=== PATIENT | male | born 1935 | race Caucasian/White ===

== ENCOUNTER → 2024-01-21 09:08 | Outpatient (REF) | payer OTHER, SELFPAY | LOC: HWRCS 09:08 | PROVIDERS: ATTENDING PHYSICIAN Internal Medicine Cardiovascular Disease; FAMILY PHYSICIAN Family Medicine | DX: I25.10 Atherosclerotic heart disease of native coronary artery without angina pectoris (principal); I35.1 Nonrheumatic aortic (valve) insufficiency | CPT/HCPCS: 93306 ==

== ENCOUNTER 2024-06-26 21:47 | Emergency (ER) | payer OTHER, SELFPAY ==
[2024-06-26 21:51] VITALS: BP 123/68
[2024-06-26 22:31] VITALS: BP 105/76
[2024-06-26 22:47] LABS: % Basophils 0.6 % (0-2); % Eosinophils 5.3 % (0-6); % Immature Granulocytes 0.2 % (0-0.5); % Lymphocytes 17.5 % (20.5-51.1); % Monocytes 8.8 % (1.7-9.3); % Neutrophils 67.6 % (42.2-75.2); Absolute Eosinophils 0.3 10^3/uL (0-0.7); Absolute Lymphocytes 0.9 10^3/uL (1.2-3.4); Absolute Monocytes 0.4 10^3/uL (0.1-0.6); Absolute Neutrophils 3.3 10^3/uL (1.4-6.5); Hematocrit 35.9 % (39.0-52.0); Hemoglobin 11.8 g/dL (13.0-18.0); Mean Corp Hgb Conc. 32.9 g/dL (33.0-37.0); Mean Corpuscular Hgb 30.9 pg (27.0-31.0); Mean Platelet Volume 9.6 fL (7.4-10.4); Nucleated Red Blood Cells % 0 % (-); Platelet Count 172 10^3/uL (130-400); Red Blood Cell Count 3.82 10^6/uL (4.70-6.10); Red Cell Dist. Width 15.7 % (11.5-14.5); White Blood Cell Count 4.9 10^3/uL (4.8-10.8)
[2024-06-26 23:00] LABS: ALT (SGPT) 20 U/L (0-50); AST (SGOT) 34 U/L (17-59); Albumin 3.3 g/dl (3.5-5.0); Alcohol 119 mg/dl; Alkaline Phosphatase 116 U/L (38-126); Blood Urea Nitrogen 24 mg/dl (9-20); Calcium 8.2 mg/dl (8.4-10.2); Carbon Dioxide 25 mmol/L (22-30); Chloride 110 mmol/L (98-107); Glucose 88 mg/dl (70-99); Potassium 4.4 mmol/L (3.5-5.1); Sodium 143 mmol/L (135-145); Total Bilirubin 0.3 mg/dl (0.2-1.3); Total Protein 5.8 g/dl (6.3-8.2); eGFR 58.53
--- NOTE | 2024-06-26 23:26 | ED.CVA ---
History of Present Illness
General
Chief Complaint: CVA/TIA Symptoms
Source: patient
Time Seen by Provider: 06/26/24 22:31
Onset of Stroke Symptoms
Onset of symptoms known: No
Time pt last seen normal is known: No
History of Present Illness
History of Present Illness:
88-year-old male with past medical history of CAD, multiple myeloma, hypercholesterolemia presenting to the emergency department for evaluation after he was talking to family on the phone and they felt patient had slurred speech. Patient states at
no time did he feel his speech was abnormal and has no other complaints and on arrival to the emergency department still continues to state that he does not have any speech difficulties. Patient notes that family contacted EMS who brought him here.
Patient does admit to drinking little alcohol today which she states he normally does not do. He does endorse some mild lower back discomfort which he states caused him to not a good night sleep last night. Denies any fevers or infectious
symptoms and has no other concerns at this time.
Past History
Past History
ED Past Medical History: HTN, Hypercholesterolemia and Other (Multiple myeloma, Sinus Problems, Hiatal hernia, BPV, Endocarditis)
ED Past Surgical History: Cardiac (Stent)
Social History
Tobacco: Former smoker
Alcohol: Occasional (one Tonya)
Drug: None
Personal:
Living: alone
Review of Systems
Review of Systems
All Other Systems: ROS reviewed and negative except as documented in HPI and ROS
Phy Exam
Physical Exam
Physical Exam:
GENERAL: Alert , in no apparent distress
HEAD: NCAT
EYE: pupils equal and reactive
NECK: Supple
ENT: o/p clr, mmm.
CARDIAC: Regular rate and rhythm .
LUNGS: Clear breath sounds bilaterally, no acute respiratory distress, no wheezes/rales/rhonchi
ABDOMEN: Soft, without focal tenderness, no r/g, no cvat
NEUROLOGICAL: Alert and oriented, no focal neuro deficits, moves all extremities, no sensory deficits, no dysmetria, no aphasia or dysarthria, no ataxia
SKIN: Warm and dry, skin intact.
MUSCULOSKELETAL: No edema, well perfused.
PSYCH: Normal and appropriate interaction.
Scores
NIH Stroke Score
Level of Consciousness: 0 - Alert
LOC Questions: 0-Answers both correctly
LOC Commands: 0-Performs both correctly
Best Horizontal Gaze: 0-Normal
Visual Woods: 0=Normal, no visual loss
Facial Palsy: 0=Normal, symmetrical
Motor - Right Arm: 0=No drift 10 seconds
Motor - Left Arm: 0=No drift 10 seconds
Motor - Right Le-No drift 5 seconds
Motor - Left Le-No drift 5 seconds
Limb Ataxia: 0-Absent
Sensation: 0-Normal
Best Language: 0-No aphasia
Dysarthria: 0-Normal
Extinction and Inattention: 0-No abnormality
Total Score:: 0
Heart Failure Risk
Heart Failure Risk Score: Not Applicable
Heart Score for Chest Pain Patients
STEMI patient?: Not applicable
Withdrawal Assessment of Alcohol
Withdrawal Assessment Completed?: Not applicable
Course
Orders/Labs/Results
Orders:
Orders
06/26/24 22:37
Electrocardiogram (*1) Urgent
Reason for Study: TIA/Stroke
CT Head W/o Iv Contrast Urgent
Comment:
Reason For Exam: ? slurred speech
EKG- Treatment ONCE
06/26/24 22:38
Alcohol Urgent
Complete Blood Count/With Diff Urgent
Comprehensive Metabolic Panel Urgent
Abnormal Lab Results
06/26/24
22:38
RBC 3.82 L 10^6/uL
(4.70-6.10)
Hgb 11.8 L g/dL
(13.0-18.0)
Hct 35.9 L %
(39.0-52.0)
MCHC 32.9 L g/dL
(33.0-37.0)
RDW 15.7 H %
(11.5-14.5)
Absolute Lymphs (auto) 0.9 L 10^3/uL
(1.2-3.4)
Lymphocytes % 17.5 L %
(20.5-51.1)
Chloride 110 H mmol/L
(98-107)
BUN 24 H mg/dl
(9-20)
Calcium 8.2 L mg/dl
(8.4-10.2)
Total Protein 5.8 L g/dl
(6.3-8.2)
Albumin 3.3 L g/dl
(3.5-5.0)
06/26/24 22:38
06/26/24 22:38
Vital Signs
Initial and Last Documented VS:
Initial Vital Signs
Temp Pulse Resp BP Pulse Ox
98.2 F 64 18 123/68 100
06/26/24 21:51 06/26/24 21:51 06/26/24 21:51 06/26/24 21:51 06/26/24 21:51
Last Documented Vital Signs
Temp Pulse Resp BP Pulse Ox
98.2 F 62 20 105/76 95
06/26/24 21:51 06/26/24 23:30 06/26/24 23:19 06/26/24 22:31 06/26/24 23:30
MDM/Problems Addressed
Differential Diagnosis Includes:
Alcohol intoxication, CVA/TIA considered however patient states that at no point did he feel that he had slurred speech, intracranial bleeding, malignancy/mass
MDM/Problems Addressed:
88-year-old male presenting to the emergency department for evaluation of reported slurred speech. Patient states that at times that he feels that he had slurred speech. On arrival here patient has an NIH score of 0. No stroke alert was called
given patient does not have symptoms. Patient does admit to drinking alcohol earlier today and is possible he is mildly intoxicated. Will check labs and CT of the head. Reassessment following
*Radiology
Radiology exam reviewed: radiology read reviewed
*Pulse Oximetry
Patient hypoxic: no
*Day Light Relief Operator Interpretation
Rate: normal
Rhythm: sinus
*Critical Care Note
Total Time (30-74mins, 75-104mins- exclusive of procedures): Not Applicable
Patient Management
Escalation/DeEscalation of care consider admission/obs:
Patient's workup reveals a mildly elevated alcohol. CT of the head is unremarkable for any acute pathologies. Other labs are otherwise workable. Patient continues to be well-appearing and without any concerns. Patient's sister will pick him up
from the emergency department. Patient is otherwise stable for discharge home and aware of return precautions.
ED Attending Note
-
Portions of this chart may have been created with voice recognition software.� Occasional wrong word or��sound alike� substitutions may have occurred due to the inherent limitations of voice recognition software.
Discharge Plan
Departure
Patient Disposition: Home (Routine Discharge)
Date of Disposition: 06/26/24
Time of Disposition: 23:26
Patient with high blood pressure during this ER visit?: No
Discharge Problem:
Alcohol intoxication
Instructions: Alcohol intoxication - ED discharge instructions
Prescriptions:
No Action
msiarenf-pjy-SR-lycopen-lutein [Centrum Silver] 1 EACH tablet
1 ea PO DAILY
amoxicillin 500 MG capsule
500 mg PO PRN PRN (Reason: dental procedure)
tamsulosin 0.4 MG capsule
0.4 mg PO DAILY
vitamin B complex 1 TAB tablet
1 tab PO DAILY
fluticasone propionate 1 SPRAY spray,suspension
1 spray intranasal DAILY
budesonide-formoterol [Symbicort] 1 PUFF HFA aerosol inhaler
2 puff inhalation PRN PRN (Reason: congestion)
clopidogrel 75 MG tablet
75 mg PO DAILY Qty: 90 3RF
aspirin 81 MG tablet,delayed release (DR/EC)
81 mg PO DAILY Qty: 1 0RF
pantoprazole 40 MG tablet,delayed release (DR/EC)
40 mg PO DAILY Qty: 90 3RF
atorvastatin 40 MG tablet
40 mg PO HS Qty: 0 0RF
meclizine 25 MG tablet
25 mg PO Q8HPRN PRN (Reason: Dizziness) Qty: 10 0RF
Referrals:
Jan Orantes, DO [Family Provider] -
Interventions
Interventions:
*Risk Screen - Suicide Last Done: 06/26/24 21:51
*General Assessment Last Done: 06/26/24 21:51
*Neglect/Abuse Screening Last Done: 06/26/24 21:51
ED- Fall Risk Assessment Last Done: 06/26/24 22:44
*ED COVID-19 Vaccine History Last Done: 06/26/24 23:24
ED- Pulmonary Assessment Last Done: 06/26/24 22:44
ED- Neurological Assessment Last Done: 06/26/24 22:44
ED- Cardiac Assessment Last Done: 06/26/24 22:44
ED Swallowing Screen Last Done: 06/26/24 23:37
Discharge Date and Time
Print Language: BURUNDIAN
== END 2024-06-27 00:45 | disposition home or self-care (01) ==
LOC: EMR 21:47
PROVIDERS: Emergency Medicine; EMERGENCY PHYSICIAN Student in an Organized Health Care Education/Training Program; FAMILY PHYSICIAN Family Medicine
DX: F10.129 Alcohol abuse with intoxication, unspecified (principal); I25.10 Atherosclerotic heart disease of native coronary artery without angina pectoris; I10 Essential (primary) hypertension; E78.00 Pure hypercholesterolemia, unspecified; C90.00 Multiple myeloma not having achieved remission; Z87.891 Personal history of nicotine dependence; Z95.5 Presence of coronary angioplasty implant and graft
CPT/HCPCS: 99284; 70450; 80053; 82077; 85025; 93005

== ENCOUNTER → 2024-06-29 13:28 | Outpatient (REF) | payer OTHER, SELFPAY | LOC: HWRAD 13:28 | PROVIDERS: ATTENDING PHYSICIAN Student in an Organized Health Care Education/Training Program | DX: M54.50 Low back pain, unspecified (principal) | CPT/HCPCS: 72110 ==

== ENCOUNTER → 2024-07-21 13:14 | Outpatient (REF) | payer OTHER, SELFPAY | LOC: PAVMRI 13:14 | PROVIDERS: ATTENDING PHYSICIAN Physician Assistant; FAMILY PHYSICIAN Family Medicine | DX: M54.16 Radiculopathy, lumbar region (principal) | CPT/HCPCS: 72148 ==

== ENCOUNTER 2024-09-01 15:30 | Emergency (ER) | payer OTHER, SELFPAY ==
[2024-09-01 15:49] VITALS: BP 119/78
[2024-09-01 16:09] LABS: % Basophils 0.2 % (0-2); % Eosinophils 7.9 % (0-6); % Immature Granulocytes 0.3 % (0-0.5); % Lymphocytes 3.2 % (20.5-51.1); % Monocytes 6.9 % (1.7-9.3); % Neutrophils 81.5 % (42.2-75.2); Absolute Eosinophils 0.5 10^3/uL (0-0.7); Absolute Lymphocytes 0.2 10^3/uL (1.2-3.4); Absolute Monocytes 0.4 10^3/uL (0.1-0.6); Absolute Neutrophils 5.1 10^3/uL (1.4-6.5); Hematocrit 45.9 % (39.0-52.0); Hemoglobin 15.1 g/dL (13.0-18.0); Mean Corp Hgb Conc. 32.9 g/dL (33.0-37.0); Mean Corpuscular Hgb 29.3 pg (27.0-31.0); Mean Corpuscular Volume 89.1 fL (80.0-94.0); Mean Platelet Volume 10.2 fL (7.4-10.4); Nucleated Red Blood Cells % 0 % (-); Platelet Count 164 10^3/uL (130-400); Red Blood Cell Count 5.15 10^6/uL (4.70-6.10); Red Cell Dist. Width 14.1 % (11.5-14.5); White Blood Cell Count 6.2 10^3/uL (4.8-10.8)
[2024-09-01 16:25] LABS: ALT (SGPT) 17 U/L (0-50); AST (SGOT) 27 U/L (17-59); Albumin 3.7 g/dl (3.5-5.0); Alkaline Phosphatase 124 U/L (38-126); Blood Urea Nitrogen 25 mg/dl (9-20); Calcium 8.8 mg/dl (8.4-10.2); Carbon Dioxide 24 mmol/L (22-30); Chloride 103 mmol/L (98-107); Glucose 115 mg/dl (70-99); Sodium 137 mmol/L (135-145); Total Bilirubin 0.8 mg/dl (0.2-1.3); Total Protein 6.1 g/dl (6.3-8.2); eGFR 53.17
[2024-09-01 18:32] VITALS: BMI 19.9
[2024-09-01] MEDS: NSS 1000 IV (18:35)
[2024-09-01 18:45] VITALS: BP 155/87
--- NOTE | 2024-09-01 19:17 | ED.GENMED ---
History of Present Illness
General
Chief Complaint: Dizziness
Source: patient
Time Seen by Provider: 09/01/24 18:11
History of Present Illness
History of Present Illness:
88-year-old male with past medical history of newly diagnosed prostate cancer, CAD, multiple myeloma presenting to the emergency department for evaluation of a multitude of symptoms including decreased p.o. intake to both solids and liquids, weight
loss, fatigue, lightheadedness, generalized aches and pains over the last few days. Patient states he believes this is related to new chemotherapy treatments related to his prostate cancer. Patient states this morning symptoms seem to be a little
bit worse which is what today. At present time patient states he does feel little bit better than he did earlier this morning. Denies any fevers or infectious symptoms. No other concerns presently. Triage noted patient was experiencing vertigo
however patient described the symptoms to be more of a headedness sensation during my exam.
Past History
Past History
ED Past Medical History: Cancer, HTN, Hypercholesterolemia and Other (Multiple myeloma, Sinus Problems, Hiatal hernia, BPV, Endocarditis)
ED Past Surgical History: Cardiac (Stent)
Social History
Tobacco: Former smoker
Alcohol: Occasional (one Michaeli)
Drug: None
Personal:
Living: alone
Review of Systems
Review of Systems
All Other Systems: ROS reviewed and negative except as documented in HPI and ROS
Phy Exam
Physical Exam
Physical Exam:
GENERAL: Alert , in no apparent distress, ambulating with steady gait
HEAD: Normocephalic atraumatic
EYE: Clear conjunctiva
NECK: Supple
ENT: o/p clr, mildly dry mucous membranes
CARDIAC: Borderline tachycardic rate and rhythm
LUNGS: Clear breath sounds bilaterally, no acute respiratory distress, no wheezes/rales/rhonchi
ABDOMEN: Soft, without focal tenderness, no r/g, no cvat
NEUROLOGICAL: Alert and oriented, no focal neuro deficits, no ataxia, no dysmetria, no dysarthria or aphasia, moves all extremities
SKIN: Warm and dry, skin intact.
MUSCULOSKELETAL: No edema, well perfused.
PSYCH: Normal and appropriate interaction.
Scores
Heart Failure Risk
Heart Failure Risk Score: Not Applicable
Heart Score for Chest Pain Patients
STEMI patient?: Not applicable
Withdrawal Assessment of Alcohol
Withdrawal Assessment Completed?: Not applicable
Course
Orders/Labs/Results
Orders:
Orders
09/01/24 15:42
Electrocardiogram (*1) Urgent
Reason for Study: Vertigo / Dizzy
EKG- Treatment ONCE
09/01/24 15:54
CT Head W/o Iv Contrast Urgent
Comment:
Reason For Exam: change in mental status
09/01/24 16:00
Complete Blood Count/With Diff Urgent
Comprehensive Metabolic Panel Urgent
09/01/24 18:18
0.9% Sodium Chloride 1000 ml [Nss] 1,000 ml IV BOLUS
09/01/24 18:19
Orthostatic VS- Treatment ONCE
Abnormal Lab Results
09/01/24
16:00
MCHC 32.9 L g/dL
(33.0-37.0)
Absolute Lymphs (auto) 0.2 L 10^3/uL
(1.2-3.4)
Neutrophils % 81.5 H %
(42.2-75.2)
Lymphocytes % 3.2 L %
(20.5-51.1)
Eosinophils % 7.9 H %
(0-6)
BUN 25 H mg/dl
(9-20)
Glucose 115 H mg/dl
(70-99)
Total Protein 6.1 L g/dl
(6.3-8.2)
09/01/24 16:00
09/01/24 16:00
Vital Signs
Initial and Last Documented VS:
Initial Vital Signs
Temp Pulse Resp BP Pulse Ox
97.9 F 115 20 119/78 97
09/01/24 15:49 09/01/24 15:49 09/01/24 15:49 09/01/24 15:49 09/01/24 15:49
Last Documented Vital Signs
Temp Pulse Resp BP Pulse Ox
97.9 F 73 17 135/79 98
09/01/24 15:49 09/01/24 19:24 09/01/24 19:24 09/01/24 19:24 09/01/24 19:24
MDM/Problems Addressed
Differential Diagnosis Includes:
Chemotherapy/medication side effect, dehydration, electrolyte derangement, I do not have concern for acute CVA, no symptoms to suggest infectious etiology
MDM/Problems Addressed:
88-year-old male presenting to the ER for generalized fatigue, decreased p.o. intake and lightheadedness. Patient states the symptoms all started after his last chemotherapy session. I do suspect his symptoms are likely related to this. Likely
mild dehydration due to lack of p.o. intake. Labs were initiated in triage which are largely reassuring. There is mild prerenal azotemia. Head CT was negative. Will treat with 1 L of IV fluids. Anticipate discharge home following.
Chronic conditions affecting care: Cancer
Acute Exacerbation and/or Progression of Chronic Illness: Cancer
*Radiology
Radiology exam reviewed: radiology read reviewed
*Pulse Oximetry
Patient hypoxic: no
*EKG
Heart Rate: 90
Rate: normal
Rhythm: sinus
[place]: normal axis
Ischemia: no ischemia
*Graduate Recruiter Interpretation
Rate: normal
Rhythm: sinus
*Critical Care Note
Total Time (30-74mins, 75-104mins- exclusive of procedures): Not Applicable
Patient Management
Escalation/DeEscalation of care consider admission/obs:
Patient completed IV fluids without difficulty. Remains hemodynamically stable. Orthostatics noted and patient noted he felt better following IVF. Aware of return precautions. Stable for discharge home
ED Attending Note
-
Portions of this chart may have been created with voice recognition software.� Occasional wrong word or��sound alike� substitutions may have occurred due to the inherent limitations of voice recognition software.
Discharge Plan
Departure
Patient Disposition: Home (Routine Discharge)
Date of Disposition: 09/01/24
Time of Disposition: 20:16
Patient with high blood pressure during this ER visit?: Yes
Discharge Problem:
Dehydration
Instructions: Dehydration in adults - ED discharge instructions
Prescriptions:
No Action
otosmnqc-zfc-KC-lycopen-lutein [Centrum Silver] 1 EACH tablet
1 ea PO DAILY
amoxicillin 500 MG capsule
500 mg PO PRN PRN (Reason: dental procedure)
tamsulosin 0.4 MG capsule
0.4 mg PO DAILY
vitamin B complex 1 TAB tablet
1 tab PO DAILY
fluticasone propionate 1 SPRAY spray,suspension
1 spray intranasal DAILY
budesonide-formoterol [Symbicort] 1 PUFF HFA aerosol inhaler
2 puff inhalation PRN PRN (Reason: congestion)
clopidogrel 75 MG tablet
75 mg PO DAILY Qty: 90 3RF
aspirin 81 MG tablet,delayed release (DR/EC)
81 mg PO DAILY Qty: 1 0RF
pantoprazole 40 MG tablet,delayed release (DR/EC)
40 mg PO DAILY Qty: 90 3RF
atorvastatin 40 MG tablet
40 mg PO HS Qty: 0 0RF
meclizine 25 MG tablet
25 mg PO Q8HPRN PRN (Reason: Dizziness) Qty: 10 0RF
Referrals:
Jan Orantes, DO [Family Provider] -
Interventions
Interventions:
*Risk Screen - Suicide Last Done: 09/01/24 15:49
*General Assessment Last Done: 09/01/24 18:32
ED- Fall Risk Assessment Last Done: 09/01/24 18:44
*Nursing Disposition Last Done: 09/01/24 20:38
ED- Neurological Assessment Last Done: 09/01/24 18:38
ED- Cardiac Assessment Last Done: 09/01/24 18:44
Discharge Date and Time
Print Language: BRITISH
[2024-09-01 19:22] VITALS: BP 151/70
[2024-09-01 19:24] VITALS: BP 135/79
[2024-09-01 19:27] VITALS: BP 135/79; BP 151/70; BP 173/79; PULSE 63; PULSE 70; PULSE 90
== END 2024-09-01 20:49 | disposition home or self-care (01) ==
LOC: EMR 15:30
PROVIDERS: Emergency Medicine; EMERGENCY PHYSICIAN Emergency Medicine; FAMILY PHYSICIAN Family Medicine
DX: R42 Dizziness and giddiness (principal); E78.00 Pure hypercholesterolemia, unspecified; I10 Essential (primary) hypertension; I25.10 Atherosclerotic heart disease of native coronary artery without angina pectoris; C90.00 Multiple myeloma not having achieved remission; Z51.11 Encounter for antineoplastic chemotherapy; Z85.46 Personal history of malignant neoplasm of prostate; Z87.891 Personal history of nicotine dependence; Z95.5 Presence of coronary angioplasty implant and graft
CPT/HCPCS: 99284; 96360; 70450; 80053; 85025; 93005

== ENCOUNTER → 2024-10-19 09:36 | Outpatient (REF) | payer OTHER, SELFPAY ==
[2024-10-19 12:02] LABS: % Basophils 0.8 % (0-2); % Eosinophils 4.8 % (0-6); % Immature Granulocytes 0.3 % (0-0.5); % Lymphocytes 9.9 % (20.5-51.1); % Monocytes 12.5 % (1.7-9.3); % Neutrophils 71.7 % (42.2-75.2); Absolute Eosinophils 0.2 10^3/uL (0-0.7); Absolute Lymphocytes 0.4 10^3/uL (1.2-3.4); Absolute Monocytes 0.5 10^3/uL (0.1-0.6); Absolute Neutrophils 2.8 10^3/uL (1.4-6.5); Hematocrit 39.4 % (39.0-52.0); Mean Corpuscular Hgb 29.9 pg (27.0-31.0); Mean Corpuscular Volume 90.6 fL (80.0-94.0); Mean Platelet Volume 10.1 fL (7.4-10.4); Nucleated Red Blood Cells % 0 % (-); Platelet Count 191 10^3/uL (130-400); Red Blood Cell Count 4.35 10^6/uL (4.70-6.10); Red Cell Dist. Width 16.5 % (11.5-14.5); White Blood Cell Count 3.9 10^3/uL (4.8-10.8)
[2024-10-19 12:19] LABS: ALT (SGPT) 16 U/L (0-50); AST (SGOT) 26 U/L (17-59); Albumin 3.2 g/dl (3.5-5.0); Alkaline Phosphatase 112 U/L (38-126); Blood Urea Nitrogen 20 mg/dl (9-20); Carbon Dioxide 31 mmol/L (22-30); Chloride 104 mmol/L (98-107); Glucose 84 mg/dl (70-99); Potassium 3.6 mmol/L (3.5-5.1); Sodium 139 mmol/L (135-145); Total Bilirubin 0.8 mg/dl (0.2-1.3); Total Protein 5.8 g/dl (6.3-8.2); eGFR > 60.00
[2024-10-19 12:48] LABS: PSA, Total - Diagnostic 0.17 ng/ml (0.0-4.0)
[2024-10-22 02:24] LABS: % Free Testosterone <1.3 % (1.6-2.9); Free Testosterone <1 pg/mL (47-244); Sex Hormone Binding Globulin 51 nmol/L (19-76); Total Testosterone <3 ng/dL (300-720)
== END ==
LOC: HWRAD 09:36
PROVIDERS: ATTENDING PHYSICIAN Internal Medicine Hematology & Oncology; FAMILY PHYSICIAN Family Medicine
DX: C61 Malignant neoplasm of prostate (principal); N18.30 Chronic kidney disease, stage 3 unspecified; Z79.818 Long term (current) use of other agents affecting estrogen receptors and estrogen levels
CPT/HCPCS: 36415; 77080; 80053; 84153; 84270; 84402; 84403; 85025

== ENCOUNTER → 2024-10-28 09:50 | Outpatient (REF) | payer OTHER, SELFPAY ==
[2024-10-28 11:55] LABS: % Basophils 0.6 % (0-2); % Eosinophils 3.4 % (0-6); % Immature Granulocytes 0.2 % (0-0.5); % Lymphocytes 7.8 % (20.5-51.1); % Monocytes 11.1 % (1.7-9.3); % Neutrophils 76.9 % (42.2-75.2); Absolute Eosinophils 0.2 10^3/uL (0-0.7); Absolute Lymphocytes 0.4 10^3/uL (1.2-3.4); Absolute Monocytes 0.5 10^3/uL (0.1-0.6); Absolute Neutrophils 3.7 10^3/uL (1.4-6.5); Hematocrit 40.2 % (39.0-52.0); Hemoglobin 13.2 g/dL (13.0-18.0); Mean Corp Hgb Conc. 32.8 g/dL (33.0-37.0); Mean Corpuscular Volume 91.4 fL (80.0-94.0); Mean Platelet Volume 9.9 fL (7.4-10.4); Nucleated Red Blood Cells % 0 % (-); Platelet Count 192 10^3/uL (130-400); Red Cell Dist. Width 16.7 % (11.5-14.5); White Blood Cell Count 4.8 10^3/uL (4.8-10.8)
[2024-10-28 12:07] LABS: ALT (SGPT) 17 U/L (0-50); AST (SGOT) 28 U/L (17-59); Albumin 3.5 g/dl (3.5-5.0); Alkaline Phosphatase 138 U/L (38-126); Blood Urea Nitrogen 19 mg/dl (9-20); Calcium 8.8 mg/dl (8.4-10.2); Carbon Dioxide 29 mmol/L (22-30); Chloride 104 mmol/L (98-107); Direct Bilirubin 0.3 mg/dl (0.0-0.4); Glucose 94 mg/dl (70-99); HDL Cholesterol 60 mg/dl; LDL Cholesterol, Calculated 45 mg/dl; Potassium 3.7 mmol/L (3.5-5.1); Sodium 141 mmol/L (135-145); Total Bilirubin 0.8 mg/dl (0.2-1.3); Total Cholesterol 122 mg/dl (50-199); Total Protein 6.1 g/dl (6.3-8.2); Triglyceride 86 mg/dl (10-149); Very Low Density Lipoprotein 17 mg/dl (0-30); eGFR > 60.00
[2024-10-28 15:22] LABS: PSA, Total - Diagnostic 0.16 ng/ml (0.0-4.0)
[2024-10-30 13:11] LABS: % Free Testosterone <1.2 % (1.6-2.9); Free Testosterone <1 pg/mL (47-244); Sex Hormone Binding Globulin 55 nmol/L (19-76); Total Testosterone <3 ng/dL (300-720)
== END ==
LOC: HWLAB 09:50
PROVIDERS: ATTENDING PHYSICIAN Internal Medicine Cardiovascular Disease; FAMILY PHYSICIAN Family Medicine; REFERRING PHYSICIAN Internal Medicine Hematology & Oncology
DX: I25.10 Atherosclerotic heart disease of native coronary artery without angina pectoris (principal); I35.1 Nonrheumatic aortic (valve) insufficiency; E78.2 Mixed hyperlipidemia; R06.02 Shortness of breath
CPT/HCPCS: 36415; 71046; 80053; 80061; 82248; 84153; 84270; 84402; 84403; 85025

== ENCOUNTER → 2024-11-15 15:03 | Outpatient (REF) | payer OTHER, SELFPAY ==
[2024-11-15 15:45] LABS: Urine Albumin 1+ (Neg - Trace); Urine Bilirubin Negative (Negative); Urine Character Clear (Clear); Urine Color Yellow; Urine Glucose Negative (Negative); Urine Ketone Negative (Negative); Urine Leukocyte Negative (Negative); Urine Nitrite Negative (Negative); Urine Occult Blood Negative (Negative); Urine Urobilinogen Negative (Neg - 1+); Urine pH 6.5 (5.0-9.0)
[2024-11-15 16:04] LABS: Urine Bacteria Few (Negative); Urine Red Blood Cell 0-2 /HPF (0-2); Urine Squamous Cell 0-2 /LPF (Few); Urine White Cell 0-2 /HPF (0-5)
[2024-11-15 16:27] LABS: % Basophils 0.5 % (0-2); % Eosinophils 1.2 % (0-6); % Immature Granulocytes 0.5 % (0-0.5); % Lymphocytes 4.1 % (20.5-51.1); % Monocytes 7.1 % (1.7-9.3); % Neutrophils 86.6 % (42.2-75.2); Absolute Eosinophils 0.1 10^3/uL (0-0.7); Absolute Lymphocytes 0.3 10^3/uL (1.2-3.4); Absolute Monocytes 0.5 10^3/uL (0.1-0.6); Absolute Neutrophils 5.8 10^3/uL (1.4-6.5); Hematocrit 38.7 % (39.0-52.0); Hemoglobin 12.7 g/dL (13.0-18.0); Mean Corp Hgb Conc. 32.8 g/dL (33.0-37.0); Mean Corpuscular Hgb 29.9 pg (27.0-31.0); Mean Corpuscular Volume 91.1 fL (80.0-94.0); Mean Platelet Volume 10.5 fL (7.4-10.4); Nucleated Red Blood Cells % 0 % (-); Platelet Count 212 10^3/uL (130-400); Red Blood Cell Count 4.25 10^6/uL (4.70-6.10); Red Cell Dist. Width 16.4 % (11.5-14.5); White Blood Cell Count 6.7 10^3/uL (4.8-10.8)
[2024-11-15 16:39] LABS: ALT (SGPT) 18 U/L (0-50); AST (SGOT) 30 U/L (17-59); Albumin 3.3 g/dl (3.5-5.0); Alkaline Phosphatase 132 U/L (38-126); Blood Urea Nitrogen 19 mg/dl (9-20); Carbon Dioxide 32 mmol/L (22-30); Chloride 102 mmol/L (98-107); Glucose 119 mg/dl (70-99); Iron 79 ug/dl (49-181); Potassium 4.8 mmol/L (3.5-5.1); Sodium 139 mmol/L (135-145); Total Bilirubin 0.7 mg/dl (0.2-1.3); Total Protein 5.8 g/dl (6.3-8.2); eGFR > 60.00
[2024-11-15 16:48] LABS: Percent Saturation 30 % (20-50); Total Iron Binding Capacity 261 ug/dl (261-462)
[2024-11-15 17:16] LABS: Ferritin 87.4 ng/ml (17.9-464.0)
== END ==
LOC: REG 15:03
PROVIDERS: ATTENDING PHYSICIAN Internal Medicine Hematology & Oncology; FAMILY PHYSICIAN Family Medicine
DX: C61 Malignant neoplasm of prostate (principal); N18.30 Chronic kidney disease, stage 3 unspecified; Z79.818 Long term (current) use of other agents affecting estrogen receptors and estrogen levels
CPT/HCPCS: 36415; 80053; 81003; 81015; 82728; 83540; 83550; 85025; 87086

== ENCOUNTER → 2024-11-25 10:37 | Outpatient (REF) | payer OTHER, SELFPAY ==
[2024-11-25 11:37] LABS: % Basophils 0.6 % (0-2); % Eosinophils 2.9 % (0-6); % Immature Granulocytes 0.4 % (0-0.5); % Lymphocytes 4.4 % (20.5-51.1); % Monocytes 10.8 % (1.7-9.3); % Neutrophils 80.9 % (42.2-75.2); Absolute Eosinophils 0.2 10^3/uL (0-0.7); Absolute Lymphocytes 0.2 10^3/uL (1.2-3.4); Absolute Monocytes 0.6 10^3/uL (0.1-0.6); Absolute Neutrophils 4.2 10^3/uL (1.4-6.5); Hematocrit 39.2 % (39.0-52.0); Hemoglobin 12.9 g/dL (13.0-18.0); Mean Corp Hgb Conc. 32.9 g/dL (33.0-37.0); Mean Corpuscular Hgb 30.1 pg (27.0-31.0); Mean Corpuscular Volume 91.4 fL (80.0-94.0); Mean Platelet Volume 9.8 fL (7.4-10.4); Nucleated Red Blood Cells % 0 % (-); Platelet Count 216 10^3/uL (130-400); Red Blood Cell Count 4.29 10^6/uL (4.70-6.10); White Blood Cell Count 5.2 10^3/uL (4.8-10.8)
[2024-11-25 12:50] LABS: ALT (SGPT) 17 U/L (0-50); AST (SGOT) 27 U/L (17-59); Albumin 3.5 g/dl (3.5-5.0); Alkaline Phosphatase 149 U/L (38-126); Blood Urea Nitrogen 23 mg/dl (9-20); Calcium 9.1 mg/dl (8.4-10.2); Carbon Dioxide 29 mmol/L (22-30); Chloride 107 mmol/L (98-107); Glucose 90 mg/dl (70-99); Potassium 4.2 mmol/L (3.5-5.1); Sodium 140 mmol/L (135-145); Total Protein 6.1 g/dl (6.3-8.2); eGFR > 60.00
== END ==
LOC: RAD 10:37
PROVIDERS: ATTENDING PHYSICIAN Nurse Practitioner Gerontology; FAMILY PHYSICIAN Family Medicine
DX: C61 Malignant neoplasm of prostate (principal)
CPT/HCPCS: 36415; 71046; 80053; 85025

== ENCOUNTER 2024-11-25 20:08 | Emergency (ER) | payer OTHER, SELFPAY ==
[2024-11-25 20:09] VITALS: BP 152/88
[2024-11-25 22:30] VITALS: BMI 21.6
[2024-11-25 22:34] VITALS: BP 148/82
[2024-11-25 23:00] VITALS: BP 135/79
--- NOTE | 2024-11-26 | ED.GENMED ---
History of Present Illness
General
Chief Complaint: Breathing Problem
Source: patient
Time Seen by Provider: 11/25/24 23:59
History of Present Illness
History of Present Illness:
Pleasant 88-year-old male presents to the emergency department to 'review testing '. He states that he has some form of cancer but after reading the chart and discussing that he has prostate cancer, patient was surprised. Patient drove himself
here but is somewhat confused. He has no new symptoms at this time. After reviewing previous notes, patient has had this diagnosis of prostate cancer since at least August of this year. He is being tracked by palliative care. He states that
they sent him in for 'explanation '. History is limited due to patient condition.
Past History
Past History
ED Past Medical History: Cancer, HTN, Hypercholesterolemia and Other (Multiple myeloma, Sinus Problems, Hiatal hernia, BPV, Endocarditis)
ED Past Surgical History: Cardiac (Stent)
Social History
Tobacco: Former smoker
Alcohol: Occasional (one Michaeli)
Drug: None
Personal:
Living: alone
Review of Systems
Review of Systems
Allergies reviewed?: Yes
All Other Systems: ROS reviewed and negative except as documented in HPI and ROS
Constitutional: Denies fever or fatigue
Respiratory: Reports trouble breathing
Psychiatric: Reports anxiety
Phy Exam
General Physical Exam
General Presentation: well appearing and no apparent distress
General Skin: warm and dry
General Habitus: normal
General Mental: alert
General Hydration: appears well hydrated
ENT Exam
ENT Exam: EOMI, pharynx normal, neck supple and normocephalic
Eye Exam
Eye Exam: PERRL, cornea clear and conjunctiva normal
Cardiovascular Exam
Cardiovascular Exam: regular rate/rhythm
Pulmonary Exam
Pulmonary Exam: lungs clear and no respiratory distress
Gastrointestinal Exam
Gastrointestinal Exam: normal bowel sounds, non tender, soft, no organomegaly, no pulsatile mass and non distended
Neurological Exam
Neurological Exam: alert, no motor deficits, speech normal and confused
Musculoskeletal Exam
Musculoskeletal Exam: full ROM
Skin Exam
Skin Exam: normal color and warm/dry
Psychiatric Exam
Psychiatric Exam: anxious and labile
Scores
Heart Failure Risk
Heart Failure Risk Score: Not Applicable
Course
Orders/Labs/Results
Orders:
Orders
11/25/24 20:16
Electrocardiogram (*1) Urgent
Reason for Study: Shortness of Breath
EKG- Treatment ONCE
11/26/24 02:05
Case Management Consult ONCE
Case Management Consult: Discharge Planning
Comment: Patient lives alone. He drove himself here in current state of confusion. He does not appear to be
well versed in his treatment plan or diagnosis.
Vital Signs
Initial and Last Documented VS:
Initial Vital Signs
Temp Pulse Resp BP Pulse Ox
97.6 F 94 16 152/88 96
11/25/24 20:09 11/25/24 20:09 11/25/24 20:09 11/25/24 20:09 11/25/24 20:09
Last Documented Vital Signs
Temp Pulse Resp BP Pulse Ox
97.6 F 76 24 135/79 93
11/25/24 20:09 11/26/24 01:30 11/26/24 01:30 11/25/24 23:00 11/26/24 01:00
*Critical Care Note
Total Time (30-74mins, 75-104mins- exclusive of procedures): Not Applicable
Update Note
Update Note:
Patient is on palliative care.
He is confused.
He lives alone
Case management consulted
ED Attending Note
-
Portions of this chart may have been created with voice recognition software.� Occasional wrong word or��sound alike� substitutions may have occurred due to the inherent limitations of voice recognition software.
Discharge Plan
Departure
Prescriptions:
No Action
udhsuboj-mgg-TZ-lycopen-lutein [Centrum Silver] 1 EACH tablet
1 ea PO DAILY
amoxicillin 500 MG capsule
500 mg PO PRN PRN (Reason: dental procedure)
tamsulosin 0.4 MG capsule
0.4 mg PO DAILY
vitamin B complex 1 TAB tablet
1 tab PO DAILY
fluticasone propionate 1 SPRAY spray,suspension
1 spray intranasal DAILY
budesonide-formoterol [Symbicort] 1 PUFF HFA aerosol inhaler
2 puff inhalation PRN PRN (Reason: congestion)
clopidogrel 75 MG tablet
75 mg PO DAILY Qty: 90 3RF
aspirin 81 MG tablet,delayed release (DR/EC)
81 mg PO DAILY Qty: 1 0RF
pantoprazole 40 MG tablet,delayed release (DR/EC)
40 mg PO DAILY Qty: 90 3RF
atorvastatin 40 MG tablet
40 mg PO HS Qty: 0 0RF
meclizine 25 MG tablet
25 mg PO Q8HPRN PRN (Reason: Dizziness) Qty: 10 0RF
Referrals:
Jan Orantes, DO [Family Provider] -
Interventions
Interventions:
*Risk Screen - Suicide Last Done: 11/25/24 20:09
*General Assessment Last Done: 11/25/24 20:09
*Neglect/Abuse Screening Last Done: 11/25/24 20:09
*ED COVID-19 Vaccine History Last Done: 11/25/24 20:09
ED- Cardiac Assessment Last Done: 11/25/24 22:30
ED- Pulmonary Assessment Last Done: 11/25/24 22:30
Discharge Date and Time
Print Language: SPANISH
[2024-11-26 07:30] VITALS: BP 137/84
--- NOTE | 2024-11-26 08:03 | CM ---
Addendum entered by Norma Rivas RN 11/26/24 09:22:
CM was updated by Sarah Santamaria that patient had been referred to [facility], but was overcome for services. He was also referred to [facility] [employer] [facility], but declined because he didn't like the food. He has also been referred to a cleaning agency and he was
agreeable to that. CM will remain available as needed.
Addendum entered by Norma Rivas RN 11/26/24 09:13:
CM reached out to Palliative Care. Confirmed that patient was send to ER due to increasingly shortness of breath and adverse findings on chest xray. CM updated Dr. Valdez. Plan for discharge to home with PO antibiotics.
Patient stated that he is having increasing difficulty with maintaining his home. He does state that he has supportive neighbors who are able to assist him with his needs. Patient further stated that he does go to the gym and continues to drive. He
expressed frustration with having to stay in his room. 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 CM offered emotional support and stated that the ER team is working to get him
discharged.
CM contacted [facility]. CM will coordinate any further needs with Sarah.
PLAN: home with Palliative Care support.
Original Note:
CM reviewed medical records.
--- NOTE | 2024-11-26 08:34 | EDRN ---
Pt. called his palliative care team who reached out to case management stating pt. is very upset. Forwarded tt note state 'Obinna just called our office and is upset, 'not allowed to leave his room, no food or coffee, Very upset. Can you or someone
talk to him. He feels like a 'prisoner.'
Pt. had been made aware around 0730 am that a breakfast tray was ordered and will come up around 9 AM which will come with coffee. New water provided to the patient at that time. Pt. asked to stay in room just as any other ER pt would be asked due
to other patients being treated in the ER at this time. RN went to Dr. Valdez to confirm what the plan was this morning. Dr. Valdez confirmed just waiting for case management and also confirmed that if patient wants to leave he is fine to leave.
and we are not holding him for any reason.
RN went into pt's room at this time to go back over information. RN restated that food has been ordered and will be coming up around 9am, just like it would be for any other pt holding or waiting in the ER. Pt. upset that RN will not go out at buy
patient a coffee. RN explained she has other patients at this time and is not required to spend her own money on the patient. Pt. also upset due to the 'angelia last night' promised that pt would be out of here at 8 am. RN explained to patient that case
management doesn't come in until after 8 am so unfortunately unsure why 'the angelia last night' stated that. RN re-informed pt of the plan to meet with case management. RN reminded pt that no one is holding him prisoner and he is within his own right
to leave if that is what he wishes to do. Pt. states that he's waited this long, he's going to continue waiting.
@[id number] Case management Norma is now down in the ER and speaking with patient's palliative care team and Dr. Valdez.
--- NOTE | 2024-11-26 08:58 | EDRN ---
case management and dr. fregoso at bedside to talk with pt.
[2024-11-26] MEDS: AUGMENTIN 875 MG/125 MG 1 TABLET PO (09:23)
== END 2024-11-26 09:33 | disposition home or self-care (01) ==
LOC: EMR 20:08
PROVIDERS: EMERGENCY PHYSICIAN Student in an Organized Health Care Education/Training Program; FAMILY PHYSICIAN Family Medicine
DX: R41.0 Disorientation, unspecified (principal); I10 Essential (primary) hypertension; E78.00 Pure hypercholesterolemia, unspecified; Z51.5 Encounter for palliative care; Z87.891 Personal history of nicotine dependence; Z95.5 Presence of coronary angioplasty implant and graft
CPT/HCPCS: 99283; 93005

== ENCOUNTER 2024-12-22 15:17 | Inpatient (IN) | payer OTHER, SELFPAY ==
[2024-12-21 20:43] VITALS: BP 138/78
[2024-12-21 21:08] VITALS: BMI 23.0
--- NOTE | 2024-12-21 21:14 | ED.GENMED ---
History of Present Illness
General
Chief Complaint: Abdominal Pain
Source: patient
Exam Limitations: none
Time Seen by Provider: 12/21/24 20:56
Nursing documentation reviewed up to this point in time: agreed with
History of Present Illness
History of Present Illness:
89-year-old male with past medical history of CAD, hyperlipidemia, prostate cancer, multiple myeloma who presents to the emergency department for evaluation of flank pain. Patient reports onset of symptoms about a week ago and have been constant
since that time. He reports pain is dull aching located in the right flank radiates towards the right upper abdomen. No clear triggering or relieving factors noted. He reports that he has had poor appetite and weight loss. He denies any
vomiting. Denies any diarrhea. He denies fevers or chills. He denies significant coughing, chest pain or shortness of breath. He went to urgent care on 12/18 for his symptoms and had an abdominal x-ray which apparently showed abdominal mass and
pleural effusion; he was recommended for a follow-up CT scan. Today he called his primary doctor and was told he should come to the ER for his CT scan.
Past History
Past History
ED Past Medical History: Cancer, HTN, Hypercholesterolemia and Other (Multiple myeloma, Sinus Problems, Hiatal hernia, BPV, Endocarditis)
ED Past Surgical History: Cardiac (Stent)
Social History
Tobacco: Former smoker
Alcohol: Occasional (one Michaeli)
Drug: None
Personal:
Living: alone
Review of Systems
Review of Systems
All Other Systems: ROS reviewed and negative except as documented in HPI and ROS
Constitutional: Denies fever
Respiratory: Denies trouble breathing
Cardiac: Denies chest pain
ABD/GI: Reports abdominal pain and anorexia; Denies nausea, vomiting or diarrhea
: Reports flank pain; Denies dysuria
Musculoskeletal: Denies neck pain
Neurological: Denies dizzy or headache
Phy Exam
Physical Exam
Physical Exam:
General: Awake, alert, oriented x3; no acute distress
Head: Normocephalic, atraumatic
Eyes: Conjunctiva normal, sclera anicteric
Throat: Airway intact, handling secretions
Neck: Trachea midline, no JVD
Lungs: Breath sounds severely diminished at the right lung base; no tachypnea, no increased work of breathing, no hypoxia
Heart: Regular rate and rhythm, no murmurs, gallops, or rubs
Abd: Soft, non distended, tender in the right upper abdomen with palpable hepatomegaly
Neuro: No gross deficits
Skin: no rash in area of concern
Extremities: Warm and well-perfused
Scores
Heart Failure Risk
Heart Failure Risk Score: Not Applicable
Heart Score for Chest Pain Patients
STEMI patient?: Not applicable
Withdrawal Assessment of Alcohol
Withdrawal Assessment Completed?: Not applicable
Course
Orders/Labs/Results
Orders:
Orders
12/21/24 20:57
CT Chest/abd/pel W Iv Cont Urgent
Comment: combined wrong order placed by attending
Reason For Exam: right flank pain; suspected mass on outpatient XR
Urinalysis Reflex To Culture Urgent
12/21/24 21:18
Complete Blood Count/With Diff Urgent
Comprehensive Metabolic Panel Urgent
Lipase Urgent
12/21/24 22:05
Morphine Sulfate 4 mg IV NOW STA
Ondansetron Injectable [Zofran] 4 mg IV NOW STA
Abnormal Lab Results
12/21/24
21:18
RBC 3.67 L 10^6/uL
(4.70-6.10)
Hgb 11.5 L g/dL
(13.0-18.0)
Hct 33.0 L %
(39.0-52.0)
MCH 31.3 H pg
(27.0-31.0)
Absolute Lymphs (auto) 0.3 L 10^3/uL
(1.2-3.4)
Neutrophils % 84.3 H %
(42.2-75.2)
Lymphocytes % 4.5 L %
(20.5-51.1)
BUN 29 H mg/dl
(9-20)
Glucose 154 H mg/dl
(70-99)
Alkaline Phosphatase 147 H U/L
(38-126)
Total Protein 5.7 L g/dl
(6.3-8.2)
Albumin 3.1 L g/dl
(3.5-5.0)
12/21/24 21:18
12/21/24 21:18
Vital Signs
Initial and Last Documented VS:
Initial Vital Signs
Temp Pulse Resp BP Pulse Ox
36.8 C 96 20 138/78 95
12/21/24 20:43 12/21/24 20:43 12/21/24 20:43 12/21/24 20:43 12/21/24 20:43
Last Documented Vital Signs
Temp Pulse Resp BP Pulse Ox
36.8 C 87 22 141/102 92
12/21/24 20:43 12/21/24 22:45 12/21/24 22:45 12/21/24 22:41 12/21/24 22:45
MDM/Problems Addressed
Differential Diagnosis Includes:
Malignancy, cirrhosis, hepatitis, pleural effusion
MDM/Problems Addressed:
89-year-old male presents with right flank pain for the past week; had abnormal x-ray and was sent by his primary doctor for CT scan. Vitals and exam as above. Plan to send labs including a CBC and a CMP, lipase. Will check CT of the
chest/abdomen/pelvis. Reassess after the above.
Labs reviewed: CBC shows mild anemia, CMP no clinically significant abnormalities. CT is pending. Patient having significant pain and nausea�given Zofran and morphine.
CT reviewed by me shows massive right sided pleural effusion, multiple renal cysts. Awaiting final radiology report. Fortunately he is not showing any signs of respiratory compromise but patient will need admission for thoracentesis large-volume
thoracentesis and for pain control at minimum. Case discussed with hospitalist for admission.
*Critical Care Note
Total Time (30-74mins, 75-104mins- exclusive of procedures): Not Applicable
Patient Management
Discussion with other providers: Hospitalist (Discussed with hospitalist)
Escalation/DeEscalation of care consider admission/obs:
Admission indicated
ED Attending Note
-
Portions of this chart may have been created with voice recognition software.� Occasional wrong word or��sound alike� substitutions may have occurred due to the inherent limitations of voice recognition software.
Discharge Plan
Departure
Patient Disposition: Admit
Date of Disposition: 12/21/24
Time of Disposition: 22:43
Admit to doctor: Daniel
Presentation/result/management discussed w/ accepting MD/DO: Hospitalist
Discharge Problem:
Right flank pain, Pleural effusion
Prescriptions:
No Action
agnlusyt-wcn-VR-lycopen-lutein [Centrum Silver] 1 EACH tablet
1 ea PO DAILY
amoxicillin 500 MG capsule
500 mg PO PRN PRN (Reason: dental procedure)
tamsulosin 0.4 MG capsule
0.4 mg PO DAILY
vitamin B complex 1 TAB tablet
1 tab PO DAILY
fluticasone propionate 1 SPRAY spray,suspension
1 spray intranasal DAILY
budesonide-formoterol [Symbicort] 1 PUFF HFA aerosol inhaler
2 puff inhalation PRN PRN (Reason: congestion)
clopidogrel 75 MG tablet
75 mg PO DAILY Qty: 90 3RF
aspirin 81 MG tablet,delayed release (DR/EC)
81 mg PO DAILY Qty: 1 0RF
pantoprazole 40 MG tablet,delayed release (DR/EC)
40 mg PO DAILY Qty: 90 3RF
atorvastatin 40 MG tablet
40 mg PO HS Qty: 0 0RF
meclizine 25 MG tablet
25 mg PO Q8HPRN PRN (Reason: Dizziness) Qty: 10 0RF
amoxicillin-pot clavulanate 875-125 mg tablet
1 tab PO BID Qty: 14 0RF
Referrals:
UNKNOWN - PT DOES,NOT KNOW [Unknown Provider]
Interventions
Interventions:
*Risk Screen - Suicide Last Done: 12/21/24 20:43
*General Assessment Last Done: 12/21/24 20:43
*Neglect/Abuse Screening Last Done: 12/21/24 20:43
*ED- Fall Risk Assessment Last Done: 12/21/24 20:43
*ED COVID-19 Vaccine History Last Done: 12/21/24 20:43
FH-Drpeyz-Rdgmiizfmt Assessment Last Done: 12/21/24 21:25
Discharge Date and Time
Print Language: MALTESE
[2024-12-21 21:19] VITALS: BP 135/82
[2024-12-21 21:46] LABS: % Basophils 0.3 % (0-2); % Eosinophils 1.2 % (0-6); % Immature Granulocytes 0.5 % (0-0.5); % Lymphocytes 4.5 % (20.5-51.1); % Monocytes 9.2 % (1.7-9.3); % Neutrophils 84.3 % (42.2-75.2); Absolute Eosinophils 0.1 10^3/uL (0-0.7); Absolute Lymphocytes 0.3 10^3/uL (1.2-3.4); Absolute Monocytes 0.6 10^3/uL (0.1-0.6); Absolute Neutrophils 5.1 10^3/uL (1.4-6.5); Hemoglobin 11.5 g/dL (13.0-18.0); Mean Corp Hgb Conc. 34.8 g/dL (33.0-37.0); Mean Corpuscular Hgb 31.3 pg (27.0-31.0); Mean Corpuscular Volume 89.9 fL (80.0-94.0); Mean Platelet Volume 9.9 fL (7.4-10.4); Nucleated Red Blood Cells % 0 % (-); Platelet Count 216 10^3/uL (130-400); Red Blood Cell Count 3.67 10^6/uL (4.70-6.10); Red Cell Dist. Width 14.3 % (11.5-14.5)
[2024-12-21 21:48] LABS: ALT (SGPT) 22 U/L (0-50); AST (SGOT) 34 U/L (17-59); Albumin 3.1 g/dl (3.5-5.0); Alkaline Phosphatase 147 U/L (38-126); Blood Urea Nitrogen 29 mg/dl (9-20); Calcium 8.7 mg/dl (8.4-10.2); Carbon Dioxide 28 mmol/L (22-30); Chloride 105 mmol/L (98-107); Estimated Creatinine Clearance 52 ml/min; Glucose 154 mg/dl (70-99); Lipase 70 U/L (23-300); Potassium 4.5 mmol/L (3.5-5.1); Sodium 135 mmol/L (135-145); Total Bilirubin 0.6 mg/dl (0.2-1.3); Total Protein 5.7 g/dl (6.3-8.2); eGFR > 60.00
[2024-12-21 22:00] VITALS: BP 144/82
[2024-12-21] MEDS: MORPHINE SULFATE 4 MG IV (22:11)
[2024-12-21] MEDS: ZOFRAN 4 MG IV (22:11)
[2024-12-21 22:41] VITALS: BP 141/102
--- NOTE | 2024-12-21 22:46 | HPS.HSE ---
Family Physician
-
Family Physician: NOT KNOW UNKNOWN - PT DOES
Chief Complaint
-
right flank pain
History of Present Illness
Patient is a 89-year-old male with past medical history significant for hyperlipidemia, CAD s/p PCI with stent, GERD, TIA, SAI, BPH and metastatic prostate cancer who presented to [facility] ED for evaluation of right flank pain. Patient reports right
flank pain for approximately 1 week that is described as sharp and worse with inhalation. He now associates the pain with shortness of breath even at rest. Denies any recent illness, travel, fever, chills, chest pain, nausea, vomiting, constipation,
diarrhea or urinary symptoms. Patient diagnosed with metastatic prostate cancer Jul 2024 with 2 rounds of radiation ending in September 2024, patient follows with [facility] with next appointment scheduled for December 24.
Medical History
Past Medical History
Past Medical History: Reports Other
Additional Past Medical History:
hyperlipidemia
CAD s/p PCI with stent
GERD
TIA
SAI
BPH
metastatic prostate cancer
Past Surgical History: Reports Other
Additional Past Surgical History:
Left Wrist surgery (bones removed)
Colonoscopy 2015
B/L knees TKR
Hiatal Hernia repair
cardiac stent placement 01/2018
cataracts/IOL
Social History
Tobacco: Former Smoker (quit in October 1974)
Alcohol: Occasional
Drug: None
Living: Alone
Employment: Retired
Family History
Family History: Other (Mother: CVA; Father: [place])
Allergies / Home Medications
Allergies reflects when Allergies were last updated in [facility].
Home Medications with original date entered in [employer]
Allergy/Medication List:
Medications on admission are unable to be verified or confirmed at this time.
Review of Systems
-
History Source: Patient
Constitutional: Reports No Symptoms
EENT: Reports No Symptoms
Respiratory: Reports Cough, Trouble Breathing (shortness of breath at rest ) and Other (right flank pain with inhalation )
Cardiac: Reports No Symptoms
Abdomen/GI: Reports No Symptoms
: Reports No Symptoms
Musculoskeletal: Reports No Symptoms
Skin: Reports No Symptoms
Neurological: Reports No Symptoms
Endocrine: Reports No Symptoms
Hematologic/Lymphatic: Reports No Symptoms
Psych: Reports No Symptoms
Physical Exam
Vital Signs
Vital Signs
Temp Pulse Resp BP Pulse Ox
98.3 F 87 20 135/82 96
12/21/24 20:43 12/21/24 21:30 12/21/24 20:43 12/21/24 21:19 12/21/24 21:30
Physical Exam
General: Well Developed, Well Nourished, No Apparent Distress, Conversant and Appears Chronically Ill
HEENT: NormoCephalic, Moist mucous membranes, Atraumatic, [place] Conjunctivae, Nose Appears Normal and Ears Appear Normal
Respiratory: Clear and Decreased Breath Sounds (decreased throughout all lung rocha, significantly decreased RLL)
Cardiac: S1/S2 and Regular Rhythm
Breast: Deferred by me
GI: Soft, Non Tender, Non Distended and Normal Bowel Sounds
Rectal: Deferred by Provider
Genito-urinary: Deferred by me
Musculoskeletal: No Clubbing, No Cyanosis and No Edema
Skin: Warm, Dry and IV/Catheter Site
Neuro: Awake, Alert, AO x 3 and Nonfocal/grossly intact
Psych: Calm
Laboratory Results
-
12/21/24 21:18
12/21/24 21:18
Laboratory Results
Total Bilirubin 0.6 mg/dl (0.2-1.3) 12/21/24 21:18
AST 34 U/L (17-59) 12/21/24 21:18
ALT 22 U/L (0-50) 12/21/24 21:18
Alkaline Phosphatase 147 U/L (38-126) H 12/21/24 21:18
Lipase 70 U/L (23-300) 12/21/24 21:18
Data Reviewed
-
CT Scan: Report Reviewed by me (Chest/Abd/pel: 1. Large right pleural effusion with near-complete right lung atelectasis. Associated leftward mediastinal shift. 2. Small 6 mm lingula nodule, new/increased from prior. Recommend attention on follow-up
exams. 3. 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
Lab Data: Labs Reviewed by me
Impression/Plan
-
IMPRESSION/PLAN:
#Large right pleural effusion
Chest/Abd/Pel CT: 1. Large right pleural effusion with near-complete right lung atelectasis. Associated leftward mediastinal shift.
2. Small 6 mm lingula nodule, new/increased from prior. Recommend attention on follow-up exams.
3. 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
4. No acute process in the abdomen or pelvis. Moderate diffuse colonic stool burden may reflect constipation.
5. Redemonstration of sclerotic osseous metastases within the lumbar spine/sacrum.
- Admit to med/surg
- Consult IR for thoracentesis
- pain regimen
- supportive care
#hyperlipidemia
#CAD s/p PCI with stent
#GERD
#TIA
#SAI
#BPH
#metastatic prostate cancer
*unable to complete med rec, patient unaware of medications or dosing, no one at home to assist, please have pharmacy complete in morning*
Code status: full code
DVT prophylaxis: SCDs
--- NOTE | 2024-12-21 22:51 | W.PN.UPDATE ---
Update Note
Progress Note Update
Patient seen conjunction with [employer]. I agree defined/physical. I concur with the assessment and plan listed otherwise.
Briefly, this is a 89-year-old male with past medical history significant for metastatic prostate cancer, nonobstructive CAD, GERD, history of mild AR and aortic root dilation presented to the emergency department for CVA with intractable flank
pain.
Reports 1 week of symptoms including right flank pain radiating to the upper abdomen without any clear triggering exacerbating or relieving factors. Reports decreased appetite and weight loss. Reports dyspnea with a flight of stairs. No lower
extremity swelling. Denies any fevers or chills. Denies any cough. Denies any pleuritic chest discomfort. He denies chest pain at rest. He has no nausea vomiting or diarrhea. Was seen at urgent care 3 days ago and had an abdominal x-ray which
showed possible mass of fluid and was recommended to follow-up with a CT scan. He was sent to the emergency department today for a CT scan in the ER. There was found to have a new large right pleural effusion.
Here in the emergency department he is afebrile with a temp of 98.3, is satting 96% on room air. Hemodynamically stable with a pressure of 135/80 and a pulse rate of 87.
CBC was unremarkable. Electrolytes were all within the normal range with normal BUN and creatinine. LFTs were unremarkable.
CT chest/abd/pelvis: 1. Large right pleural effusion with near-complete right lung atelectasis. Associated leftward mediastinal shift.
2. Small 6 mm lingula nodule, new/increased from prior. Recommend attention on follow-up exams.
3. 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
4. No acute process in the abdomen or pelvis. Moderate diffuse colonic stool burden may reflect constipation.
5. Redemonstration of sclerotic osseous metastases within the lumbar spine/sacrum.
Assessment and plan
89 y.o male with h/o metastatic prostate ca, HTN, CAD, former smoker presents with R flank pain and a new large right pleural effusion. No fevers, chills, leukocytosis suggestive of acute infection. Suspect malignant effusion from possible new CA
or metastatic prostate CA. No liver disease suggestive of hepatic hydrothorax. Significant atelectasis but no hypoxia. No increased wob.
- admit to med/surg observation
- pain control
- supplemental oxygen for comfort
- IR consult for diagnostic and therapeutic tap -> TP, LDH, albumin, cell count, culture/gram stain and cytology
- bnp in am
- unfortunately unable to determine home meds, request pharmacy recs in am.
- DVT PPX - SCDs
Code Status - Full code
[2024-12-21 23:00] VITALS: BP 145/88
--- NOTE | 2024-12-21 23:54 | EDRN ---
Med Rec: Med Rec performed with patient. Patient denies taking any of his prescribed home medications for the past few months. He reports having an 'infusion' once a month that allows him not to need any other medications. Patient cannot recall the
name of the infusion
[2024-12-22] VITALS (8 sets, daily range): BP systolic 76–164; BP diastolic 64–89; BMI 21.9
[2024-12-22 00:11] LABS: Urine Albumin 2+ (Neg - Trace); Urine Bilirubin Negative (Negative); Urine Glucose Negative (Negative); Urine Ketone Negative (Negative); Urine Leukocyte Negative (Negative); Urine Nitrite Negative (Negative); Urine Occult Blood Negative (Negative); Urine Specific Gravity 1.015 (<1.030); Urine Urobilinogen Negative (Neg - 1+)
[2024-12-22 00:12] LABS: Urine Character Clear (Clear); Urine Color Yellow
[2024-12-22 00:30] LABS: Urine Red Blood Cell 0-2 /HPF (0-2)
[2024-12-22 00:31] LABS: Urine White Cell 0-2 /HPF (0-5)
[2024-12-22] MEDS: MELATONIN 5 MG PO (01:53)
--- NOTE | 2024-12-22 02:34 | PTCARENOTE ---
Pt received from ER theodore able to make his needs known.Plan of care continued with pt.Pt orientedNoelle abbott in reach.
[2024-12-22] MEDS: ROXICODONE 5 MG PO ×2 (04:04→08:47)
[2024-12-22 06:53] LABS: INR 0.98; PT 13.3 Sec (11.4-14.6)
[2024-12-22 06:54] LABS: APTT 30.8 Sec (23.4-35.0)
[2024-12-22 06:55] LABS: Hematocrit 36.7 % (39.0-52.0); Hemoglobin 12.2 g/dL (13.0-18.0); Mean Corp Hgb Conc. 33.2 g/dL (33.0-37.0); Mean Corpuscular Hgb 30.6 pg (27.0-31.0); Mean Platelet Volume 9.8 fL (7.4-10.4); Platelet Count 232 10^3/uL (130-400); Red Blood Cell Count 3.99 10^6/uL (4.70-6.10); Red Cell Dist. Width 14.5 % (11.5-14.5); White Blood Cell Count 5.6 10^3/uL (4.8-10.8)
[2024-12-22 07:11] LABS: Blood Urea Nitrogen 25 mg/dl (9-20); Calcium 9.1 mg/dl (8.4-10.2); Carbon Dioxide 32 mmol/L (22-30); Chloride 104 mmol/L (98-107); Estimated Creatinine Clearance 50 ml/min; Glucose 95 mg/dl (70-99); LDH 284 U/L (120-246); Potassium 4.8 mmol/L (3.5-5.1); Sodium 139 mmol/L (135-145); Total Protein 5.9 g/dl (6.3-8.2); eGFR > 60.00
--- NOTE | 2024-12-22 08:02 | W.PN.HOSP.TC ---
Addendum entered and electronically signed by Kehinde Smith MD 01/03/25 10:12:
pulmonary adenocarcinoma
Addendum entered and electronically signed by Kehinde Smith MD 12/22/24 17:29:
Total time spent on d/c = 33 min. This included today's physical exam, progress note, review of laboratory and diagnostic data, preparation of discharge documents and prescriptions, and discussions about the pt's hospital course and discharge plan
with the patient and other medical office secretary involved in the patient's care.
Original Note:
Today's Communication/Plan
-
see plan
Assessment / Plan
Assessment / Plan
Gen: NAD, AAOx3, appears chronically ill malnourished.
Eyes: EOMI, PERRLA, no scleral icterus.
Neck: supple.
CV: RRR, +S1/S2, no m/r/g.
Resp: Decreased breath sounds in the right hemithorax
Abd: +BS, soft, NT, ND
Skin: No rashes.
Neuro: CN 2-12 intact, non-focal.
Psych: Normal mood and affect.
CT C/A/P:
1. Large right pleural effusion with near-complete right lung atelectasis. Associated leftward mediastinal shift.
2. Small 6 mm lingula nodule, new/increased from prior. Recommend attention on follow-up exams.
3. 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
4. No acute process in the abdomen or pelvis. Moderate diffuse colonic stool burden may reflect constipation.
5. Redemonstration of sclerotic osseous metastases within the lumbar spine/sacrum.
R flank pain:
-likely due to large right pleural effusion
-for Dx/Tx R thoracentesis today
-saturating well on room air
Other problems:
Hyperlipidemia
CAD s/p PCI with stent
GERD: start PPI
h/o TIA
SAI
Metastatic prostate cancer (with enlarged prostate): cont Abiraterone/Prednisone/Flomax
FULL/SCDs
Anticipated Discharge: Within 24 hours
Subjective/Interval History
-
Date of Service: December 22, 2024
Currently denies shortness of breath.
Objective Data
-
Labs:
Laboratory Results
12/21/24 12/22/24
21:18 06:10
WBC 6.0 5.6
Hgb 11.5 L 12.2 L
Hct 33.0 L 36.7 L
Plt Count 216 232
PT 13.3
INR 0.98
APTT 30.8
Sodium 135 139
Potassium 4.5 4.8
Chloride 105 104
Carbon Dioxide 28 32 H
BUN 29 H 25 H
Creatinine 1.0 1.0
Glucose 154 H 95
Calcium 8.7 9.1
Total Bilirubin 0.6
AST 34
ALT 22
Alkaline Phosphatase 147 H
Vital Signs:
Vital Signs
Temp Pulse Resp BP Pulse Ox
97.6 F 93 18 141/85 95
12/22/24 01:10 12/22/24 01:10 12/22/24 01:10 12/22/24 01:10 12/22/24 01:10
[2024-12-22] MEDS: PROTONIX 40 MG PO (08:48)
[2024-12-22] MEDS: VITAMIN D3 (cholecalciferol) 25 MCG PO (10:41)
[2024-12-22] MEDS: FLOMAX 0.4 MG PO (10:41)
[2024-12-22] MEDS: DELTASONE 5 MG PO (10:41)
[2024-12-22] MEDS: B COMPLEX w/VITAMIN C 1 CAPLET PO (10:41)
[2024-12-22] MEDS: MORPHINE SULFATE 2 MG IV (10:42)
[2024-12-22 13:59] LABS: Body Fluid pH 7.16
[2024-12-22 14:08] LABS: Body Fluid WBC 1493 /CUMM
[2024-12-22 14:09] LABS: Body Fluid Mononuclear 80.1 %; Body Fluid Polymorphonuclear 19.9 %
[2024-12-22 14:19] LABS: Body Fluid Glucose < 30 mg/dl; Body Fluid Protein 4.3 g/dl; Body Fluid Triglycerides < 30 mg/dl
[2024-12-22 14:29] LABS: Body Fluid Second Tech EM
[2024-12-22 15:09] LABS: Body Fluid LDH 2063 U/L
--- NOTE | 2024-12-22 15:19 | CM ---
Addendum entered by Sapphire Quinonez 12/22/24 15:26:
Mariaelena signed and placed in chart. Obinna has a copy of the form.
Original Note:
REYNALDO met with Obinna at bedside to complete IA. Obinna lives alone in a 2 story home with 3 entry steps; 13 steps to the 2nd floor. He has supportive neighbors, but does not often need to ask for their help. His sister lives nearby and is also
supportive.
Obinna drives, manages the household duties, etc. (I) amb and adls, no DME in the home.
Plan: Discharge to home with no identified needs.
PCP: Dr. Orantes
Pharm: [facility] in [place]
--- NOTE | 2024-12-22 16:03 | CON.PUL ---
Consultation
Consultation Request
Date/Time Consultation Requested: 12/22/24
Date/Time Consultation Performed: 12/22/24
Performing Provider: Kim
Reason for Consultation: Effusion
Medical History
-
History of Present Illness:
Patient is an 89-year-old male with previous history of metastatic prostate cancer, hyperlipidemia, CAD status post PCI with stent presenting to ER for evaluation of right flank pain. He notes that the pain had been ongoing for 1 week which is
worsened with inhalation. He has shortness of breath which progressed to the point of rest. He was seen by his primary care physician who recommended he go to the ER. He had completed 2 rounds of radiation for prostate cancer ending in September
2024, known to [facility]. He is not very clear on his history and is unable to provide details on his medical illnesses. He seems confused with dates and times, which procedures has been completed and what has not been. History
limited from patient.
Past Medical History
Past Medical History: Other (see list below)
Social History
Tobacco: Non-smoker
Alcohol: None
Drug: None
Family History
Family History: Reviewed & Not Pertinent
Allergies / Home Medications
Allergies
Allergy/AdvReac Type Severity Reaction Status Date / Time
No Known Allergies Allergy Verified 11/25/24 20:16
Home Medications
�Medication �Instructions �Recorded �Confirmed �Last Taken �Type
abiraterone 250 mg tablet 1,000 mg PO DAILY 12/22/24 12/22/24 Unknown History
cholecalciferol (vitamin D3) 25 25 mcg PO DAILY 12/22/24 12/22/24 Unknown History
mcg (1,000 unit) tablet (Vitamin
D3)
evolocumab 140 mg/mL subcutaneous 140 mg SC Q2W 12/22/24 12/22/24 Unknown History
pen injector (Elodia Bradford)
hydrocodone 5 mg-acetaminophen 325 1 - 2 tab PO Q6HPRN PRN severe 12/22/24 12/22/24 Unknown History
mg tablet pains
oxycodone 5 mg tablet 5 mg PO Q6HPRN PRN break through 12/22/24 12/22/24 Unknown History
pain
prednisone 5 mg tablet 5 mg PO BID 12/22/24 12/22/24 Unknown History
tamsulosin 0.4 mg capsule (Flomax) 0.4 mg PO BID 12/22/24 12/22/24 Unknown History
trazodone 50 mg tablet 50 mg PO HSPRN PRN sleep 12/22/24 12/22/24 Unknown History
vitamin B complex 1 tab PO DAILY 12/22/24 12/22/24 Unknown History
Review of Systems
-
History Source: Patient
All other systems: Negative unless noted
Vitals / Labs / Diagnostic Testing
Vital Signs
Temp Pulse Resp BP Pulse Ox
97.7 F 68 18 127/64 97
12/22/24 13:51 12/22/24 13:51 12/22/24 13:51 12/22/24 13:51 12/22/24 13:51
Lab Data
12/22/24 06:10
12/22/24 06:10
Laboratory Results
12/22/24
06:10
PT 13.3
INR 0.98
APTT 30.8
Microbiology
12/22/24 13:02 Pleural Fluid Gram Stain - Preliminary
Diagnostic Testing:
Physical Exam
-
HEENT: Normocephalic, Anicteric and Moist Mucous Membranes
Cardiovascular: S1/S2 and Regular Rhythm
Respiratory: Clear, Non-Labored Respirations and Other (Decreased on R)
GI: Soft and Non Tender
Neurology: Awake, Alert, Oriented and No Motor Deficits
Skin: Warm, Dry and Good Color
General: Comfortable and Other (NAD, agitated)
Assessment
-
Patient is an 89-year-old male with previous history of metastatic prostate cancer, hyperlipidemia, CAD status post PCI with stent presenting to ER for evaluation of right flank pain. He notes that the pain had been ongoing for 1 week which is
worsened with inhalation. He has shortness of breath which progressed to the point of rest. He was seen by his primary care physician who recommended he go to the ER. He had completed 2 rounds of radiation for prostate cancer ending in September
2024, known to [facility]. He is not very clear on his history and is unable to provide details on his medical illnesses. He seems confused with dates and times, which procedures has been completed and what has not been. History
limited from patient.
Large R sided pleural effusion s/p thora, 2L removed grossly bloody pleural fluid
SOB at rest, progressive
R flank pain
Mild anemia
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
hyperlipidemia
CAD s/p PCI with stent
GERD
TIA
SAI
BPH
metastatic prostate cancer
Left Wrist surgery (bones removed)
Colonoscopy 2015
B/L knees TKR
Hiatal Hernia repair
cardiac stent placement 01/2018
cataracts/IOL
Former Smoker (quit in October 1974)
Plan
No oxygen was needed on admission, currently saturating >90% on RA
No history of baseline use of O2 at home
Prior history of lung disease is not noted --former smoker quit in 1974
He has new pleural effusion but this was present as far back as PET CT in Jul that appears progressive since
CXR/CT obtained indicating new complete R sided effusion, agree with thora
Culture and cyto pending, could be malignant
Can discuss application of ASEPT cath if indicated but can be arranged as OP as well if patient wishes to go home
Repeat CXR post thora showing persistent large effusion but he does not feel he wants to stay to continue treatment
ECHO results in past reviewed/stable findings
Less likeyl cardiac
Will need outpatient pulmonary evaluation in our office for PFTs and 6MWT
Reviewed with patient
Discharge planning per team as patient has requested
He has vocalized signing out AMA as well
Care team aware
Diagnostic Data
Chest X-Ray: 11/25/24-Again seen is right-sided volume loss with diffusely increased interstitial and patchy alveolar opacities within the right lung. Findings have worsened compared to the prior chest radiograph. Elevated appearance of the right
hemidiaphragm which again may represent a subpulmonic or loculated pleural effusion. There does appear to be some loculated pleural fluid laterally and also within the apex. Left lung is grossly clear. No pneumothorax.
Chest/Abd/Pel CT: 1. Large right pleural effusion with near-complete right lung atelectasis. Associated leftward mediastinal shift.
2. Small 6 mm lingula nodule, new/increased from prior. Recommend attention on follow-up exams.
3. 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
4. No acute process in the abdomen or pelvis. Moderate diffuse colonic stool burden may reflect constipation.
5. Redemonstration of sclerotic osseous metastases within the lumbar spine/sacrum.
PET/CT 08/06/24- Two foci of increased PSMA-activity within the prostate gland consistent with biopsy-proven prostate cancer. PSMA avid lytic destructive lesions within the L2 vertebral body and the L2/L3 posterior elements consistent with
metastases. Smaller PSMA avid L5 metastasis. Probable inflammatory activity about the left C3-4 facet joint and right SI joint. Recommend attention on follow-up exams. Mildly enlarged and PSMA avid right supraclavicular lymph node suspicious for
metastasis. Small right pleural effusion with adjacent right lower lobe consolidation which is mild to moderately PSMA avid, likely representing inflammatory rounded atelectasis or pneumonia, less likely metastasis. Right upper lobe pleural-based
consolidation most likely represents atelectasis or pneumonia, less likely metastasis. Attention on follow-up exams. Diffuse right lung intralobular septal thickening and to a lesser degree within the inferior left lower lobe. Findings may reflect
pulmonary interstitial edema and/or pneumonitis, less likely lepidic spread of disease. Enlarged mildly PSMA avid mediastinal and right hilar lymphadenopathy, likely reactive and less likely metastatic. Attention on follow-up exams.
Echo: 01/21/24- Normal biventricular size and systolic function without regional wall motion abnormality. 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 Mildly dilated ascending aorta.
Compared to the prior 10/23/22, the ascending aorta is now mildly dilated.
PFT's:
Reports and relevant images were personally reviewed.
Total time spent on this consultation __66__ minutes which includes review of history, physical exam, medications, laboratory data, personal review of imaging, extensive review of outpatient records, discussion with care team and respiratory therapy.
--- NOTE | 2024-12-22 17:18 | W.PN.UPDATE ---
Update Note
Progress Note Update
Patient asking to be discharged. I did discuss the case with Dr. Alvarez and from her standpoint the patient is medically cleared for discharge. Of note I did do a capacity evaluation the patient currently does have decision-making capacity.
Discussed with RN.
--- NOTE | 2024-12-22 17:29 | W.DCSUMMARY ---
Discharge Summary
Discharge Data
Date of Admission: 12/22/24
Date of Discharge: 12/22/24
-
Pending Results: Yes
Additional Pending Results:
Right pleural fluid cytology
Hospital Course
Primary diagnoses:
Right flank pain due to large right pleural effusion
Secondary diagnoses:
Hyperlipidemia
Coronary artery disease s/p PCI with stent
Gastroesophageal reflux disease
h/o transient ischemic attack
Obstructive Sleep Apnea
Metastatic prostate cancer (with enlarged prostate)
Consultants:
Interventional radiology
Pulmonary
Imaging:
CT C/A/P:
1. Large right pleural effusion with near-complete right lung atelectasis. Associated leftward mediastinal shift.
2. Small 6 mm lingula nodule, new/increased from prior. Recommend attention on follow-up exams.
3. 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
4. No acute process in the abdomen or pelvis. Moderate diffuse colonic stool burden may reflect constipation.
5. Redemonstration of sclerotic osseous metastases within the lumbar spine/sacrum.
Hospital course: 89-year-old male who presented with a chief complaint of right flank pain as outlined in the H&P done on admission. Imaging above. The patient underwent a right thoracentesis for 2000cc of grossly bloody pleural fluid that was
exudative. His pain improved. He was hemodynamically stable and saturating well on room air. Patient was seen in consultation by pulmonary. The case was discussed with Dr. Alvarez and she cleared the patient for discharge from her standpoint. It
was explained to the patient that he would need close outpatient follow-up and that his pleural fluid cytology would need to be followed. The patient was discharged in medically stable condition.
Discharge Plan
-
Patient Disposition: Home (Routine Discharge)
Discharge Diagnosis/Procedures: Right-sided pleural effusion s/p diagnostic and therapeutic thoracentesis
Condition: Good
Diet: Other diet
Additional Diets: Heart healthy
Activity: As tolerated
Driving Restrictions: As prior to admission
Bathing Restrictions: None
Activity Restrictions/Additional Instructions:
You need to follow-up on the results of your pleural fluid cytology.
Referrals:
Chayo Alvarez, DO [Active, Pulmonary Medicine] - in one to two weeks
Referral Note: PFT
Jan Orantes DO [Family Provider, Family Practice] - in less than 1 week
Prescriptions:
Continued
trazodone 50 mg Tablet
50 mg PO HSPRN PRN (Reason: sleep)
hydrocodone-acetaminophen 5-325 mg Tablet
1 - 2 tab PO Q6HPRN PRN (Reason: severe pains)
prednisone 5 mg Tablet
5 mg PO BID
tamsulosin [Flomax] 0.4 mg Capsule
0.4 mg PO BID
vitamin B complex Tablet
1 tab PO DAILY
oxycodone 5 mg Tablet
5 mg PO Q6HPRN PRN (Reason: break through pain)
cholecalciferol (vitamin D3) [Vitamin D3] 25 mcg (1,000 unit) Tablet
25 mcg PO DAILY
abiraterone 250 mg Tablet
1,000 mg PO DAILY
Repatha SureClick 140 mg/mL Pen Injector
140 mg SC Q2W
Discharge Orders:
Discharge Patient (As Directed); Ordered 12/22/24
Ordered By: Kehinde Smith
Discharge Date and Time
Print Language: ARABIC
--- NOTE | 2024-12-31 12:28 | PN.CDI ---
CDI
- -
CDI:
Physician Documentation Request
Admit Date: 12/22/24 15:17
Dear Doctor Luis,
Please review the following and provide your response in the progress notes.
Clinical Indicators:
The diagnosis of pulmonary adenocarcinoma was included in the signed pathology report.
Additional clinical indicators in the chart include:
Malignant cells present
Please indicate in your progress notes if you are in agreement that the above diagnosis is valid for this patient:
____ - pulmonary adenocarcinoma is a valid diagnosis (Please include it in your progress notes)
____ - pulmonary adenocarcinoma is not a valid diagnosis for this patient
____ - pulmonary adenocarcinoma is not yet confirmed but remains a suspected condition
____ - Other
____ - Unable to determine
Use of terms such as suspected, likely, concern for, or probable are acceptable for a diagnosis that is being evaluated, monitored or treated as if it exists and can be coded in the inpatient setting, when documented at the time of discharge.
Thank you,
Blanca Hairston
Inpatient Regulation Supervisor
Please use your independent medical judgment in providing your response.
== END 2024-12-22 18:48 | disposition home or self-care (01) | DRG 181 ==
LOC: 4 EAST ACU 15:17
PROVIDERS: Nurse Practitioner Family; Radiology Vascular & Interventional Radiology; ADMITTING PHYSICIAN Internal Medicine; ATTENDING PHYSICIAN Internal Medicine; CONSULT PHYSICIAN Internal Medicine; EMERGENCY PHYSICIAN Emergency Medicine; FAMILY PHYSICIAN Family Medicine
PROC: 0W993ZZ Drainage of Right Pleural Cavity, Percutaneous Approach (ICD-10-PCS; 2024-12-22)
DX: C34.91 Malignant neoplasm of unspecified part of right bronchus or lung (principal); C90.00 Multiple myeloma not having achieved remission; J90 Pleural effusion, not elsewhere classified; J98.11 Atelectasis; D64.9 Anemia, unspecified; G47.33 Obstructive sleep apnea (adult) (pediatric); I25.10 Atherosclerotic heart disease of native coronary artery without angina pectoris; K21.9 Gastro-esophageal reflux disease without esophagitis; E78.5 Hyperlipidemia, unspecified; Z86.73 Personal history of transient ischemic attack (TIA), and cerebral infarction without residual deficits; Z87.891 Personal history of nicotine dependence
CPT/HCPCS: 88305; 32555; 71045; 71260; 74177; 80048; 80053; 81003; 81015; 81459; 82945; 83615; 83690; 83986; 84155; 84157; 84478; 85025; 85027; 85610; 85730; 87015; 87070; 87116; 87205; 88112; 88341; 88342; 89051; 96374; 96375; 99285; Q9967

== ENCOUNTER 2024-12-30 12:44 | Inpatient (IN) | payer OTHER, SELFPAY ==
[2024-12-30] VITALS (8 sets, daily range): BP systolic 95–120; BP diastolic 66–74; BMI 21.8
[2024-12-30] MEDS: ZOFRAN 4 MG IV (09:53)
[2024-12-30] MEDS: MORPHINE SULFATE 4 MG IV (09:54)
[2024-12-30 10:00] LABS: % Basophils 0.3 % (0-2); % Eosinophils 2.7 % (0-6); % Immature Granulocytes 0.3 % (0-0.5); % Lymphocytes 5.4 % (20.5-51.1); % Neutrophils 79.3 % (42.2-75.2); Absolute Eosinophils 0.2 10^3/uL (0-0.7); Absolute Lymphocytes 0.4 10^3/uL (1.2-3.4); Absolute Monocytes 0.8 10^3/uL (0.1-0.6); Absolute Neutrophils 5.3 10^3/uL (1.4-6.5); Hemoglobin 9.8 g/dL (13.0-18.0); Mean Corp Hgb Conc. 33.8 g/dL (33.0-37.0); Mean Corpuscular Hgb 30.2 pg (27.0-31.0); Mean Corpuscular Volume 89.5 fL (80.0-94.0); Mean Platelet Volume 9.5 fL (7.4-10.4); Nucleated Red Blood Cells % 0 % (-); Platelet Count 238 10^3/uL (130-400); Red Blood Cell Count 3.24 10^6/uL (4.70-6.10); Red Cell Dist. Width 14.2 % (11.5-14.5); White Blood Cell Count 6.7 10^3/uL (4.8-10.8)
[2024-12-30 10:23] LABS: ALT (SGPT) 16 U/L (0-50); AST (SGOT) 22 U/L (17-59); Albumin 2.8 g/dl (3.5-5.0); Alkaline Phosphatase 159 U/L (38-126); Blood Urea Nitrogen 31 mg/dl (9-20); Calcium 8.7 mg/dl (8.4-10.2); Carbon Dioxide 32 mmol/L (22-30); Chloride 101 mmol/L (98-107); Glucose 133 mg/dl (70-99); Lipase 13 U/L (23-300); Potassium 4.6 mmol/L (3.5-5.1); Sodium 135 mmol/L (135-145); Total Bilirubin 0.8 mg/dl (0.2-1.3); Total Protein 5.2 g/dl (6.3-8.2); eGFR 58.17
[2024-12-30 10:31] LABS: NT-proBNP 599 pg/ml
--- NOTE | 2024-12-30 10:44 | ED.GENMED ---
History of Present Illness
General
Chief Complaint: Abdominal Pain
Source: patient
Exam Limitations: none
Time Seen by Provider: 12/30/24 09:45
Nursing documentation reviewed up to this point in time: agreed with
History of Present Illness
History of Present Illness:
89-year-old male with past medical history as noted presents to the ER for evaluation of right flank pain. Patient was notably just admitted to this hospital 12/21 until 12/22 for large right-sided pleural effusion that required thoracentesis�it was
a transudative effusion there was concern potentially for malignant effusion. He says that over the past 3 to 4 days he has had increasing pain in the right flank and so he came back to the emergency be evaluated. He does report some mild
shortness of breath. He also reports some pain in the upper abdomen. He denies any nausea or vomiting. Denies any diarrhea or constipation. He denies any fever or chills. Denies any coughing. He denies any other complaints.
Past History
Past History
ED Past Medical History: Cancer, HTN, Hypercholesterolemia and Other (Multiple myeloma, Sinus Problems, Hiatal hernia, BPV, Endocarditis)
ED Past Surgical History: Cardiac (Stent)
Social History
Tobacco: Former smoker
Alcohol: Occasional (one Michaeli)
Drug: None
Personal:
Living: alone
Review of Systems
Review of Systems
All Other Systems: ROS reviewed and negative except as documented in HPI and ROS
Constitutional: Denies fever
Respiratory: Reports trouble breathing; Denies cough
Cardiac: Denies chest pain
ABD/GI: Reports abdominal pain; Denies nausea, vomiting or diarrhea
: Reports flank pain; Denies dysuria or frequency
Musculoskeletal: Denies neck pain or back pain
Skin: Denies rash
Neurological: Denies headache
Phy Exam
Physical Exam
Physical Exam:
General: Awake, alert, oriented x3; no acute distress
Head: Normocephalic, atraumatic
Eyes: Conjunctiva normal, sclera anicteric
Throat: Airway intact, handling secretions
Neck: Trachea midline, no JVD
Lungs: Patient is tachypneic and hypoxic requiring 2 L nasal cannula; absent breath sounds on the right
Heart: Tachycardia with regular rhythm, no murmurs, gallops, or rubs
Abd: Soft, non distended, mildly tender in the upper abdomen
Back: No CVA tenderness
Neuro: No gross deficits
Skin: no rash in area of concern
Extremities: Bilateral lower extremity edema, extremities are warm and well-perfused
Scores
Heart Failure Risk
Heart Failure Risk Score: Not Applicable
Heart Score for Chest Pain Patients
STEMI patient?: Not applicable
Withdrawal Assessment of Alcohol
Withdrawal Assessment Completed?: Not applicable
Course
Orders/Labs/Results
Orders:
Orders
12/30/24 09:45
Urinalysis Reflex To Culture Urgent
12/30/24 09:46
CT Abd/pel Without Iv Or Oral Urgent
Comment:
Reason For Exam: right flank pain
Morphine Sulfate 4 mg IV NOW STA
Ondansetron Injectable [Zofran] 4 mg IV NOW STA
12/30/24 09:50
Complete Blood Count/With Diff Urgent
Comprehensive Metabolic Panel Urgent
Lipase Urgent
NT-proBNP Urgent
12/30/24 10:07
CT Chest W/o Iv Contrast Urgent
Comment:
Reason For Exam: R pleural effusion
12/30/24 10:19
IRAD CONSULT Urgent
Consulting Provider: Jonathan Huitron
Was physician already notified: Yes
Procedure being ordered, including laterality if applicable: thoracentesis
Acknowledgement that appropriate orders are entered: Yes
Abnormal Lab Results
12/30/24
09:50
RBC 3.24 L 10^6/uL
(4.70-6.10)
Hgb 9.8 L g/dL
(13.0-18.0)
Hct 29.0 L %
(39.0-52.0)
Absolute Lymphs (auto) 0.4 L 10^3/uL
(1.2-3.4)
Absolute Monos (auto) 0.8 H 10^3/uL
(0.1-0.6)
Neutrophils % 79.3 H %
(42.2-75.2)
Lymphocytes % 5.4 L %
(20.5-51.1)
Monocytes % 12.0 H %
(1.7-9.3)
Carbon Dioxide 32 H mmol/L
(22-30)
BUN 31 H mg/dl
(9-20)
Glucose 133 H mg/dl
(70-99)
Alkaline Phosphatase 159 H U/L
(38-126)
Total Protein 5.2 L g/dl
(6.3-8.2)
Albumin 2.8 L g/dl
(3.5-5.0)
Lipase 13 L U/L
(23-300)
12/30/24 09:50
12/30/24 09:50
Vital Signs
Initial and Last Documented VS:
Initial Vital Signs
Temp Pulse Resp BP Pulse Ox
36.6 C 108 16 120/68 92
12/30/24 09:44 12/30/24 09:44 12/30/24 09:44 12/30/24 09:44 12/30/24 09:44
Last Documented Vital Signs
Temp Pulse Resp BP Pulse Ox
36.6 C 94 19 120/68 94
12/30/24 09:44 12/30/24 09:46 12/30/24 10:00 12/30/24 09:46 12/30/24 10:19
MDM/Problems Addressed
Differential Diagnosis Includes:
Recurrent pleural effusion, pneumothorax, ascites, UTI, nephrolithiasis, cholelithiasis
MDM/Problems Addressed:
89-year-old male with history as noted, recent admission for large right pleural effusion presents with right flank pain similar to symptoms he was having prior to recent admission. He is tachycardic and tachypneic with hypoxia requiring 2 L nasal
cannula. Physical exam as above. We sent off labs including a CBC and a CMP which showed no clinically significant abnormalities. His CT of the chest/abdomen/pelvis was significant for reoccurrence of large right pleural effusion with complete
right lung atelectasis he also has ascites and multiple renal cysts noted on CT. Formal radiology report is pending. Case discussed with interventional radiology for thoracentesis and I wonder if patient would benefit from Pleurx catheter. I
think he might also benefit from palliative care discussions. Will plan to admit for continued monitoring of oxygenation and vital signs after thoracentesis. Case discussed with hospitalist.
Chronic conditions affecting care:
Prostate cancer
*Pulse Oximetry
SaO2: 94
Nasal Cannula flow liters per minute: 2
Oxygen Mode of Delivery: Blow By (Nasal cannula)
Patient hypoxic: yes (88%)
*Critical Care Note
Total Time (30-74mins, 75-104mins- exclusive of procedures): Not Applicable
Data Reviewed
Review of Other/Old Records Reveals: Labs, Operative Reports and Discharge Summary
Source: patient and records
Patient Management
Discussion with other providers: Hospitalist (Discussed with hospitalist) and Veterinary Technician Instructor (Discussed with interventional radiologist)
Escalation/DeEscalation of care consider admission/obs:
Admission indicated
ED Attending Note
-
Portions of this chart may have been created with voice recognition software.� Occasional wrong word or��sound alike� substitutions may have occurred due to the inherent limitations of voice recognition software.
Discharge Plan
Departure
Patient Disposition: Admit
Date of Disposition: 12/30/24
Time of Disposition: 10:43
Admit to doctor: Pradeep
Presentation/result/management discussed w/ accepting MD/DO: Hospitalist
Discharge Problem:
Right flank pain, Pleural effusion, Ascites
Prescriptions:
No Action
trazodone 50 mg Tablet
50 mg PO HSPRN PRN (Reason: sleep)
hydrocodone-acetaminophen 5-325 mg Tablet
1 - 2 tab PO Q6HPRN PRN (Reason: severe pains)
prednisone 5 mg Tablet
5 mg PO BID
tamsulosin [Flomax] 0.4 mg Capsule
0.4 mg PO BID
vitamin B complex Tablet
1 tab PO DAILY
oxycodone 5 mg Tablet
5 mg PO Q6HPRN PRN (Reason: break through pain)
cholecalciferol (vitamin D3) [Vitamin D3] 25 mcg (1,000 unit) Tablet
25 mcg PO DAILY
abiraterone 250 mg Tablet
1,000 mg PO DAILY
Repatha SureClick 140 mg/mL Pen Injector
140 mg SC Q2W
polyethylene glycol 3350 [Miralax] 17 gram Powder In Packet
17 g PO DAILYPRN PRN (Reason: CONSTIPATION)
Interventions
Interventions:
*Risk Screen - Suicide Last Done: 12/30/24 09:44
*General Assessment Last Done: 12/30/24 09:44
*Neglect/Abuse Screening Last Done: 12/30/24 09:44
*ED- Fall Risk Assessment Last Done: 12/30/24 09:44
*ED COVID-19 Vaccine History Last Done: 12/30/24 10:01
MG-Pfinjo-Qrihmkbcoy Assessment Last Done: 12/30/24 10:01
Discharge Date and Time
Print Language: ARABIC
--- NOTE | 2024-12-30 11:35 | HPS.HSE ---
Family Physician
-
Family Physician: Jan Orantes
Chief Complaint
-
89-year-old with shortness of breath
History of Present Illness
89 y/o with SOB and Right chest pain. Patient was recently admitted here with right pleural effusion and was seen by pulmonary and was discharged. 2 L of fluid was removed which was exudative. Fluid Cytology still pending.
Medical History
Past Medical History
Past Medical History: Reports Other
Additional Past Medical History:
Pleural effusion, H/O Endocarditis,Hyperlipidemia,Hiatal hernia, coronary artery disease, arthritis, impaired vision, prostate cancer, cognitive dysfunction
Past Surgical History: Reports Other
Additional Past Surgical History:
Bilateral knee surgery, wrist surgery, cardiac stent
Social History
Tobacco: Former Smoker
Alcohol: Occasional
Drug: None
Living: Alone
Employment: Not Employed
Family History
Family History: Early CAD (father) and Other (mom chf)
Allergies / Home Medications
Allergies reflects when Allergies were last updated in [facility] [facility].
Home Medications with original date entered in [employer] [facility]
Allergy/Medication List:
Allergies
Allergy/AdvReac Type Severity Reaction Status Date / Time
No Known Allergies Allergy Verified 12/30/24 09:42
Home Medications
abiraterone 250 mg tablet 1,000 mg PO DAILY 12/22/24
cholecalciferol (vitamin D3) 25 mcg (1,000 unit) tablet (Vitamin D3) 25 mcg PO DAILY 12/22/24
evolocumab 140 mg/mL subcutaneous pen injector (Repatha SureMichaelick) 140 mg SC Q2W 12/22/24
hydrocodone 5 mg-acetaminophen 325 mg tablet 1 - 2 tab PO Q6HPRN PRN severe pains 12/22/24
oxycodone 5 mg tablet 5 mg PO Q6HPRN PRN break through pain 12/22/24
prednisone 5 mg tablet 5 mg PO BID 12/22/24
tamsulosin 0.4 mg capsule (Flomax) 0.4 mg PO BID 12/22/24
trazodone 50 mg tablet 50 mg PO HSPRN PRN sleep 12/22/24
vitamin B complex 1 tab PO DAILY 12/22/24
polyethylene glycol 3350 17 gram oral powder packet (Miralax) 17 g PO DAILYPRN PRN CONSTIPATION 12/30/24
Review of Systems
-
A 12 point ROS was completed and negative except as noted: Yes
Respiratory: Reports Cough and Trouble Breathing
Cardiac: Reports Chest Pain (right side)
Abdomen/GI: Denies Abdominal Pain
Physical Exam
Vital Signs
Vital Signs
Temp Pulse Resp BP Pulse Ox
97.9 F 94 19 120/68 94
12/30/24 09:44 12/30/24 09:46 12/30/24 10:00 12/30/24 09:46 12/30/24 10:46
Physical Exam
General: Conversant and Respiratory Distress
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
Cardiac: S1/S2 and Regular Rhythm
Musculoskeletal: Edema, Left Lower Extremity and Edema, Right Lower Extremity
Neuro: No Motor Deficits and Nonfocal/grossly intact
Laboratory Results
-
12/30/24 09:50
12/30/24 09:50
Laboratory Results
Total Bilirubin 0.8 mg/dl (0.2-1.3) 12/30/24 09:50
AST 22 U/L (17-59) 12/30/24 09:50
ALT 16 U/L (0-50) 12/30/24 09:50
Alkaline Phosphatase 159 U/L (38-126) H 12/30/24 09:50
Lipase 13 U/L (23-300) L 12/30/24 09:50
Impression/Plan
-
IMPRESSION/PLAN:
CT scan of the chest abdomen and pelvis 12/30/2024-no significant acute abnormality of the abdomen or pelvis. Moderate diffuse colonic stool burden. Large right pleural effusion with probable dependent blood products. Redemonstration of mixed
lytic/sclerotic osseous metastasis within the lumbar spine/sacrum.
# Recurrent right pleural effusion
Admit to telemetry
Thoracentesis ordered
Repeat fluid studies including cytology
Called pathology lab-patient's cytology from 12/22/2024 is being presented at the tumor conference today and will be released after that. They will give me a call
Possible that this could be malignant effusion
Pulm eval.
May need Pleurx
Repeat x-rays in the morning after thoracentesis today
# Acute hypoxic respiratory insufficiency-secondary to above.
# Coronary disease with history of PCI and proximal to mid LAD drug-eluting stent 2018
# Hyperlipidemia-Repatha
# Hiatal hernia/GERD
# TIA history
# Metastatic prostate . Completed 2 rounds of radiation ended in September 2024. Patient follows with [facility]. On abiraterone. Prednisone. Flomax
# Insomnia-continue trazodone
# History of mitral valve endocarditis in 2008
# Ex-smoker quit in 1974
# DVT prophylaxis-Lovenox
# Full code
D/W ER
D/W Path lab
time spent over 75 min
Part of this note was created using voice recognition system. Occasional wrong word or��sound alike� substitutions may have inadvertently occurred due to the inherent limitations of voice recognition software. If noted kindly bring it to my
attention for correction.
--- NOTE | 2024-12-30 11:51 | CM ---
CM reviewed chart and met with pt bedside in ED. Pt lives alone, multistory home, [address], first floor half BA, BR/full BA second floor. 13 steps to 2nd floor.
Independent in ambulation, ADLs and personal care at baseline. Still drives.
Has supportive neighbors and sister lives in [place] and is also supportive.
No DME.
PCP: Jan Orantes
Ph[facility]acy: [facility] [place]
Discharge plan: Anticipate home, watch for needs
[2024-12-30 12:59] LABS: Iron 35 ug/dl (49-181)
[2024-12-30 13:06] LABS: LDH 207 U/L (120-246)
[2024-12-30 13:09] LABS: Percent Saturation 15 % (20-50); Total Iron Binding Capacity 233 ug/dl (261-462)
--- NOTE | 2024-12-30 13:59 | W.PN.UPDATE ---
Update Note
Progress Note Update
Discussed with pathologist Dr. Jacob Looney
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
Will consult oncology
I have also added on iron studies for anemia which is likely secondary to chronic disease.
[2024-12-30] MEDS: ROXICODONE 5 MG PO (15:04)
[2024-12-30 15:29] LABS: Vitamin B12 913 pg/ml (239-931)
--- NOTE | 2024-12-30 15:46 | CON.PUL ---
Consultation
Consultation Request
Date/Time Consultation Requested: 12/30/2024
Date/Time Consultation Performed: 12/30/2024
Requesting Provider: Mariola Bhandari
Performing Provider: Ernesto García
Reason for Consultation: Pleural effusion
Medical History
-
Chief Complaint: Shortness of breath
History of Present Illness:
Patient is a very pleasant 89-year-old gentleman who presented to the hospital with worsening shortness of breath. Patient was admitted about a week ago for similar symptoms and was noted to have right-sided pleural effusion and had about 2 L
drained by interventional radiology. Patient subsequently was discharged and now presents about a week later with similar symptoms which have gradually worsened over the last few days. No fever, chills or expectoration reported. Workup in the
emergency room was suggestive of recurrent large right-sided pleural effusion with near complete collapse of right lung. Pulmonary consultation was requested for further input. Patient reportedly carries a diagnosis of prostate cancer in the past,
metastatic with bone involvement.
Past Medical History
Past Medical History: Reports Other
Additional Past Medical History:
Pleural effusion, H/O Endocarditis,Hyperlipidemia,Hiatal hernia, coronary artery disease, arthritis, impaired vision, prostate cancer, cognitive dysfunction
Past Surgical History: Reports Other
Additional Past Surgical History:
Bilateral knee surgery, wrist surgery, cardiac stent
Social History
Tobacco: Former Smoker
Alcohol: Occasional
Drug: None
Living: Alone
Employment: Not Employed
Family History
Family History: Early CAD (father) and Other (mom chf)
Allergies / Home Medications
Allergies / Home Medications
Allergies
Allergy/AdvReac Type Severity Reaction Status Date / Time
No Known Allergies Allergy Verified 12/30/24 09:42
Home Medications
�Medication �Instructions �Recorded �Confirmed �Last Taken �Type
abiraterone 250 mg tablet 1,000 mg PO DAILY 12/22/24 12/30/24 12/30/24 History
cholecalciferol (vitamin D3) 25 25 mcg PO DAILY 12/22/24 12/30/24 Unknown History
mcg (1,000 unit) tablet (Vitamin
D3)
evolocumab 140 mg/mL subcutaneous 140 mg SC Q2W 12/22/24 12/30/24 Unknown History
pen injector (Elodia Bradford)
hydrocodone 5 mg-acetaminophen 325 1 - 2 tab PO Q6HPRN PRN severe 12/22/24 12/30/24 Unknown History
mg tablet pains
oxycodone 5 mg tablet 5 mg PO Q6HPRN PRN break through 12/22/24 12/30/24 12/30/24 History
pain
prednisone 5 mg tablet 5 mg PO BID 12/22/24 12/30/24 12/30/24 History
tamsulosin 0.4 mg capsule (Flomax) 0.4 mg PO BID 12/22/24 12/30/24 12/30/24 History
trazodone 50 mg tablet 50 mg PO HSPRN PRN sleep 12/22/24 12/30/24 Unknown History
vitamin B complex 1 tab PO DAILY 12/22/24 12/30/24 Unknown History
polyethylene glycol 3350 17 gram 17 g PO DAILYPRN PRN CONSTIPATION 12/30/24 12/30/24 12/29/24 History
oral powder packet (Miralax)
Review of Systems
-
Hematologic/Lymphatic: Other (All 14 systems reviewed and negative except as stated above in the history of present illness.)
Vitals / Labs / Diagnostic Testing
Vital Signs
Temp Pulse Resp BP Pulse Ox
97.8 F 95 18 119/68 98
12/30/24 14:52 12/30/24 14:52 12/30/24 14:52 12/30/24 14:52 12/30/24 14:52
Lab Data
12/30/24 09:50
12/30/24 09:50
Diagnostic Testing:
Physical Exam
-
HEENT: Normocephalic
Cardiovascular: S1/S2 (Tachycardic, no murmur)
Respiratory: Other (Significantly reduced air entry on the right side, unremarkable left-sided exam)
GI: Soft and Non Distended
Neurology: Awake and Alert
Skin: Warm
General: Comfortable
Assessment
-
#1. Acute hypoxic respiratory failure.
-Suspect this is related to large recurring pleural effusion with near complete collapse of the right lung.
-Continue O2 support, plan for IR guided thoracentesis.
#2. Malignant pleural effusion, recurrent, right side
- Thoracentesis, 12/22/2024. 2 L sanguinous fluid removed, cytology positive for pulmonary adenocarcinoma.
- Pleural fluid cytology: Pulmonary adenocarcinoma, immunohistochemical staining, TTF-1/Napsin A positive
- PET/CT from July 2024 showed FDG avid mediastinal and hilar lymphadenopathy as well as right upper and lower lobe areas with increased SUV intake, suspect these changes reflected primary lung cancer
- Oncology consult. Will await further recommendation from oncology service in case additional tissue is needed for NGS and PD-L1 testing.
- Will get a follow-up CT chest without contrast post thoracentesis to evaluate right pulmonary parenchyma better
- Considering rapid reaccumulation and positive cytology, recommend indwelling pleural catheter placement as I suspect patient will have ongoing reaccumulation of pleural effusion necessitating frequent thoracentesis.
- Case management and interventional radiology consult to help assist with indwelling pleural catheter placement
#3. History of prostate cancer
- Additional details unavailable, patient does not seem to recall the treatment that he has already received
- Oncology consult
Other medical diagnoses:
hyperlipidemia
CAD s/p PCI with stent
GERD
TIA
SAI
BPH
metastatic prostate cancer
Left Wrist surgery (bones removed)
Colonoscopy 2015
B/L knees TKR
Hiatal Hernia repair
cardiac stent placement 01/2018
cataracts/IOL
Former Smoker (quit in October 1974)
Total time spent on this consultation/encounter _87___ minutes which includes review of history, physical exam, medications, laboratory data, personal review of imaging, extensive review of outpatient records, discussion with care team and
respiratory therapy.
Data:
CT Chest/Abd/Pelvis 12/2024: 1. No significant acute abnormality identified in the abdomen or pelvis, within the limits of unenhanced CT, as described above.
2. Moderate diffuse colonic stool burden may reflect constipation.
3. Large right pleural effusion with probable dependent blood products, new from prior.
4. Redemonstration of mixed lytic/sclerotic osseous metastases within the lumbar spine/sacrum.
Pleural fluid cytology 12/2024: Pulmonary adenocarcinoma, immunohistochemical staining, TTF-1/Napsin A positive
PET-CT 07/2024: Low pretracheal lymph nodes with SUV 3.6, precarinal lymph node enlarged with SUV of 3.3, subcarinal lymphadenopathy, SUV 3.3. Right hilar lymphadenopathy with max SUV 5.0. Right lower lobe posterior consolidation, SUV 6.1. Right
upper lobe 3.1 cm area of pleural-based consolidation SUV 5.0. Diffuse right lung intralobular septal thickening.
In addition, foci of increased BCMA activity within the prostate gland and lytic destructive lesions within the L2 vertebral body and L2-3 posterior elements consistent with metastasis.
ECHO 01/2024: Normal biventricular size and systolic function without regional wall motion
abnormality.
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
Mildly dilated ascending aorta.
Compared to the prior 10/23/22, the ascending aorta is now mildly dilated.
[facility] 01/2018: Normal left ventricular function with EF 61%
2: Single vessel CAD with severe proximal to mid LAD stenosis
3. Successful stenting of 95% proximal to mid LAD lesion using 3.25 x 18 Xience V PRISCILA with outstanding result
4. Recommend dual antiplatelet therapy for 6-12 months
[2024-12-30 17:07] LABS: Body Fluid pH 7.09
[2024-12-30 17:21] LABS: Body Fluid Mononuclear 26.9 %; Body Fluid Polymorphonuclear 73.1 %; Body Fluid WBC 1524 /CUMM
[2024-12-30 17:23] LABS: Body Fluid Second Tech EYM
[2024-12-30 17:28] LABS: Body Fluid Protein 4.6 g/dl
[2024-12-30 17:46] LABS: Body Fluid LDH 3042 U/L
[2024-12-30] MEDS: LOVENOX 40 MG SC (18:14)
[2024-12-30] MEDS: DELTASONE 5 MG PO (20:53)
[2024-12-30] MEDS: SENOKOT 8.6 MG PO (20:53)
[2024-12-30] MEDS: COLACE 100 MG PO (20:53)
[2024-12-30] MEDS: FLOMAX 0.4 MG PO (20:53)
[2024-12-31 03:00] VITALS: BP 98/61
[2024-12-31] MEDS: ROXICODONE 5 MG PO (06:23)
[2024-12-31 07:09] LABS: % Basophils 0.2 % (0-2); % Eosinophils 1.3 % (0-6); % Immature Granulocytes 0.5 % (0-0.5); % Lymphocytes 3.1 % (20.5-51.1); % Monocytes 10.2 % (1.7-9.3); % Neutrophils 84.7 % (42.2-75.2); Absolute Eosinophils 0.1 10^3/uL (0-0.7); Absolute Lymphocytes 0.2 10^3/uL (1.2-3.4); Absolute Monocytes 0.6 10^3/uL (0.1-0.6); Absolute Neutrophils 5.2 10^3/uL (1.4-6.5); Hematocrit 28.4 % (39.0-52.0); Hemoglobin 9.3 g/dL (13.0-18.0); Mean Corp Hgb Conc. 32.7 g/dL (33.0-37.0); Mean Corpuscular Hgb 29.8 pg (27.0-31.0); Mean Platelet Volume 9.9 fL (7.4-10.4); Nucleated Red Blood Cells % 0 % (-); Platelet Count 264 10^3/uL (130-400); Red Blood Cell Count 3.12 10^6/uL (4.70-6.10); White Blood Cell Count 6.1 10^3/uL (4.8-10.8)
[2024-12-31 07:15] VITALS: BP 113/65
[2024-12-31 07:19] LABS: Blood Urea Nitrogen 31 mg/dl (9-20); Calcium 8.6 mg/dl (8.4-10.2); Carbon Dioxide 30 mmol/L (22-30); Chloride 102 mmol/L (98-107); Estimated Creatinine Clearance 41 ml/min; Glucose 116 mg/dl (70-99); Magnesium 2.2 mg/dl (1.6-2.3); Potassium 4.8 mmol/L (3.5-5.1); Sodium 134 mmol/L (135-145); eGFR 58.17
[2024-12-31 07:48] LABS: TSH 2.83 uIU/ml (0.47-4.68)
[2024-12-31 08:07] LABS: Vitamin B12 973 pg/ml (239-931)
--- NOTE | 2024-12-31 08:33 | CON.ONC ---
Documented by User: MARCO ANTONIO Garcia 12/31/24 10:33
Consultation
-
Date Consultation Requested: 12/31/24
Date Consultation Performed: 12/31/24
Requesting Provider: Mariola Bhandari
Performing Provider: Madhu Freeman
Reason for Consultation: metastatic prostate cancer, recurrent pleural effusion
Impression
Impression
89yo M admitted with acute respiratory failure
recurrent right pleural effusion -cytology from December 22 showed malignancy, pulmonary adenocarcinoma. repeat cytology today is pending
metastatic prostate cancer
acute on chronic anemia Hgb 11-12->~9.5g/dL-AOCD +/- hemorrhagic effusion
elevated alk phos suspcted r/t bony mets
Plan
Plan
we discussed 2 separate primary malignancies to include lung adenocarcinoma and metastatic prostate cancer. He would like to pursue restorative goals. He would be interested in outpatient Asept placement when pleural effusion recurs. We are awaiting
PDL1 on immunostaining and outpatient follow up for next steps in treatment
Has OP follow up with Dr. Pastor
abiraterone and prednisone 5mg bid -PSA has normalized suggesting excellent response to therapy
next outpatient lupron due 01/28/2025
Pulmonary following
Patient History
History of Present Illness
89yo M presented with SOB and right sided chest pain. CT scan of the chest abdomen and pelvis 12/30/2024 showed no significant acute abnormality of the abdomen or pelvis. Moderate diffuse colonic stool burden. Large right pleural effusion with
probable dependent blood products. Remonstration of mixed lytic/sclerotic osseous metastasis within the lumbar spine/sacrum. He reports similar SOB and right sided chest pain leading up to his thoracentesis on December 22. His symptoms improved after
his thoracentesis earlier in December. He underwent repeat thoracentesis 12/30 nya drained 400cc dark hemorrhagic pleural fluid. His thoracentesis December 22 showed pulmonary adenocarcinoma.
In brief, this patient has prostate cancer with [place] 3+3=6 prostate cancer that was diagnosed in January 2023. He underwent TRUS prostate biopsy. He opted not to purse treatment of his prostate cancer at the time of diagnosis due to age. In July
2024, he underwent a MRI spine to evaluate LBP and was found to have bony mets, as well as degenerative changes to L2-L3. He underwent a PSMA PET/CT July 2024 that showed prostate lesions, lytic destructive lesions L2/L3, L5, right
supraclavicular LN, right pleural effusion with adjacent RLL consolidation, RUL pleural based consolidation, diffuse right lung and inferior left lower lobe intralobular septal thickening, and mediastinal/right hilar lymphadenopathy.He received
palliative XRT Aug 2024 and was started on ADT plus abiraterone and prednisone 5mg bid in July 2024.
Clinically, he feels better after thoracenteis. His pain was controlled with morphine and nausea controlled with ondensetron. He is taking Senna and miralax for chronic constipation.
Past-Medical/Surgical History
PMH CAD, nonrheumatic aortic valve regurgitation, HLD, HTN, endocarditis of the mitral valve 2009, prostate cancer, GERD, TIA, osteoarthritis, hiatal hernia, glaucoma, SAI
PSH PCI with stent 2017, b/l TKR, hiatal hernia repair, cataracts
Social former smoker, denies ETOH or recreational drugs, retired
Family mother stroke, multiple myeloma
Patient Medication
�Medication �Instructions �Recorded �Confirmed �Last Taken �Type
abiraterone 250 mg tablet 1,000 mg PO DAILY 12/22/24 12/30/24 12/30/24 History
cholecalciferol (vitamin D3) 25 25 mcg PO DAILY 12/22/24 12/30/24 Unknown History
mcg (1,000 unit) tablet (Vitamin
D3)
evolocumab 140 mg/mL subcutaneous 140 mg SC Q2W 12/22/24 12/30/24 Unknown History
pen injector (Repatha SureClick)
hydrocodone 5 mg-acetaminophen 325 1 - 2 tab PO Q6HPRN PRN severe 12/22/24 12/30/24 Unknown History
mg tablet pains
oxycodone 5 mg tablet 5 mg PO Q6HPRN PRN break through 12/22/24 12/30/24 12/30/24 History
pain
prednisone 5 mg tablet 5 mg PO BID 12/22/24 12/30/24 12/30/24 History
tamsulosin 0.4 mg capsule (Flomax) 0.4 mg PO BID 12/22/24 12/30/24 12/30/24 History
trazodone 50 mg tablet 50 mg PO HSPRN PRN sleep 12/22/24 12/30/24 Unknown History
vitamin B complex 1 tab PO DAILY 12/22/24 12/30/24 Unknown History
polyethylene glycol 3350 17 gram 17 g PO DAILYPRN PRN CONSTIPATION 12/30/24 12/30/24 12/29/24 History
oral powder packet (Miralax)
Active Medications
Generic Name Dose Route Start Last Admin
Trade Name Freq PRN Reason Stop Dose Admin
Albuterol/Ipratropium 3 ml 12/30/24 12:45
Ipratropium 0.5/Albuterol 3 Mg (3 Ml Ampul) INH
R Q4HPRN PRN
shortness of breath
Protocol
Bisacodyl 10 mg 12/30/24 12:45
Bisacodyl 10 Mg Rectal Suppository RECTAL 01/27/25 12:44
[id number] PRN
constipation
Cholecalciferol 25 mcg 12/31/24 08:00
Cholecalciferol (Vitamin D3) 25 Mcg Tablet (1,000 Units) PO 01/28/25 07:59
DAILY AGUSTIN
Docusate Sodium 100 mg 12/30/24 20:00 12/30/24 20:53
Docusate Sodium 100 Mg Capsule PO 01/27/25 19:59 100 mg
BID AGUSTIN Administration
Enoxaparin Sodium 40 mg 12/30/24 18:00 12/30/24 18:14
Enoxaparin Sodium 40 Mg/0.4 Ml Syringe SC 01/27/25 17:59 40 mg
QPM AGUSTIN Administration
Non-Form Abiraterone 1,000 mg 12/31/24 08:00
250 Mg Tablet PO 01/28/25 07:59
DAILY AGUSTIN
Oxycodone HCl 5 mg 12/30/24 12:24 12/31/24 06:23
Oxycodone 5 Mg Regular Release Tablet PO 01/13/25 12:23 5 mg
Q6HPRN PRN Administration
break through pain
Polyethylene Glycol 17 grams 12/31/24 08:00
Polyethylene Glycol Powder 17 Grams Packet PO 01/28/25 07:59
DAILY AGUSTIN
Prednisone 5 mg 12/30/24 20:00 12/30/24 20:53
Prednisone 5 Mg Tablet PO 01/27/25 19:59 5 mg
BID AGUSTIN Administration
Sennosides 8.6 mg 12/30/24 20:00 12/30/24 20:53
Sennosides (Senokot) 8.6 Mg Tablet PO 01/27/25 19:59 8.6 mg
BID AGUSTIN Administration
Sodium Chloride 0 flush 12/30/24 13:00
Sodium Chloride 0.9% (Flush) Syringe IV 01/27/25 12:59
PER PROTOCOL AGUSTIN
Tamsulosin HCl 0.4 mg 12/30/24 20:00 12/30/24 20:53
Tamsulosin 0.4 Mg Capsule PO 01/27/25 19:59 0.4 mg
BID AGUSTIN Administration
Trazodone HCl 50 mg 12/30/24 12:24
Trazodone 50 Mg Tablet PO 01/27/25 12:23
HSPRN PRN
sleep
Vitamin B Complex/Vitamin C 1 caplet 12/31/24 08:00
Vitamin B Complex With Vitamin C Caplet PO 01/28/25 07:59
DAILY AGUSTIN
Review of Systems
-
ROS is notable for HPI, otherwise negative
Physical Exam
-
General: No Apparent Distress
HEENT: Moist Mucous Membranes; Negative Jaundice
Cardiology: Normal Sinus Rhythm
Pulmonary: Other (diminished RLL)
GI: Soft
Extremities: Pulses Present; Negative Edema
Neurology: Non Focal
Skin: Warm
Psych: Calm
Labs
Lab Results
WBC 6.1 10^3/uL (4.8-10.8) 12/31/24 06:20
RBC 3.12 10^6/uL (4.70-6.10) L 12/31/24 06:20
Hgb 9.3 g/dL (13.0-18.0) L 12/31/24 06:20
Hct 28.4 % (39.0-52.0) L 12/31/24 06:20
MCV 91.0 fL (80.0-94.0) 12/31/24 06:20
MCH 29.8 pg (27.0-31.0) 12/31/24 06:20
MCHC 32.7 g/dL (33.0-37.0) L 12/31/24 06:20
RDW 14.0 % (11.5-14.5) 12/31/24 06:20
Plt Count 264 10^3/uL (130-400) 12/31/24 06:20
MPV 9.9 fL (7.4-10.4) 12/31/24 06:20
Abs Immat Gran (auto) 0.0 10^3/uL (0-0.05) 12/31/24 06:20
Absolute Neuts (auto) 5.2 10^3/uL (1.4-6.5) 12/31/24 06:20
Absolute Lymphs (auto) 0.2 10^3/uL (1.2-3.4) L 12/31/24 06:20
Absolute Monos (auto) 0.6 10^3/uL (0.1-0.6) 12/31/24 06:20
Absolute Eos (auto) 0.1 10^3/uL (0-0.7) 12/31/24 06:20
Absolute Basos (auto) 0.0 10^3/uL (0-0.2) 12/31/24 06:20
Immature Gran % 0.5 % (0-0.5) 12/31/24 06:20
Neutrophils % 84.7 % (42.2-75.2) H 12/31/24 06:20
Lymphocytes % 3.1 % (20.5-51.1) L 12/31/24 06:20
Monocytes % 10.2 % (1.7-9.3) H 12/31/24 06:20
Eosinophils % 1.3 % (0-6) 12/31/24 06:20
Basophils % 0.2 % (0-2) 12/31/24 06:20
Creatinine 1.2 mg/dL (0.7-1.3) 12/31/24 06:19
Vital Signs
Vital Signs
Temp Pulse Resp BP Pulse Ox
97.7 F 97 16 113/65 96
12/31/24 07:15 12/31/24 07:15 12/31/24 07:15 12/31/24 07:15 12/31/24 07:15

Documented by User: Madhu Freeman MD 12/31/24 11:49
Impression
Impression
89yo M admitted with acute respiratory failure
recurrent right pleural effusion -cytology from December 22 showed malignancy, pulmonary adenocarcinoma. repeat cytology today is pending
metastatic prostate cancer
acute on chronic anemia Hgb 11-12->~9.5g/dL-AOCD +/- hemorrhagic effusion
elevated alk phos suspcted r/t bony mets
Plan
Plan
we discussed 2 separate primary malignancies to include lung adenocarcinoma and metastatic prostate cancer. He would like to pursue restorative goals. He would be interested in outpatient Asept placement when pleural effusion recurs. We are awaiting
PDL1 on immunostaining and outpatient follow up for next steps in treatment
Has OP follow up with Dr. Pastor
abiraterone and prednisone 5mg bid -PSA has normalized suggesting excellent response to therapy
next outpatient lupron due 01/28/2025
Pulmonary following
Attending: I believe this most likely represents a primary lung cancer as well as metastatic prostate cancer. He might benefit from a Pleurx catheter which can be done as an outpatient. We will request PD-L1 staining on his lung tumor, he might
conceivably tolerate immunotherapy.
[2024-12-31] MEDS: VITAMIN D3 (cholecalciferol) 25 MCG PO (08:37)
[2024-12-31] MEDS: B COMPLEX w/VITAMIN C 1 CAPLET PO (08:37)
[2024-12-31] MEDS: SENOKOT 8.6 MG PO ×2 (08:37→15:14)
[2024-12-31] MEDS: DELTASONE 5 MG PO (08:37)
[2024-12-31] MEDS: MIRALAX 17 GRAMS PO (08:38)
[2024-12-31] MEDS: COLACE 100 MG PO (08:38)
[2024-12-31] MEDS: FLOMAX 0.4 MG PO (08:38)
[2024-12-31] MEDS: FEOSOL 325 MG PO (10:27)
[2024-12-31 11:05] VITALS: BP 112/66
--- NOTE | 2024-12-31 12:41 | CM ---
Addendum entered by Mita Owens 12/31/24 14:55:
Patient declined visiting nurses, plan is to home by [facility].
Original Note:
Chart reviewed patient was independent prior to admission lives alone, drives. Needs follow up for discharge planning needs.
Plan; To follow with patient progress.
--- NOTE | 2024-12-31 13:08 | W.PN.PUL3 ---
Today's Communication / Plan
-
- Pulmonary service will sign off, please call as needed
- Patient will need indwelling pleural catheter placement, to be facilitated by oncology services outpatient
- Outpatient follow-up with pulmonary clinic in coming weeks
- Assess for home oxygen need prior to discharge
Assessment
-
Patient is a very pleasant 89-year-old gentleman who presented to the hospital with worsening shortness of breath. Patient was admitted about a week ago for similar symptoms and was noted to have right-sided pleural effusion and had about 2 L
drained by interventional radiology. Patient subsequently was discharged and now presents about a week later with similar symptoms which have gradually worsened over the last few days. No fever, chills or expectoration reported. Workup in the
emergency room was suggestive of recurrent large right-sided pleural effusion with near complete collapse of right lung. Pulmonary consultation was requested for further input. Patient reportedly carries a diagnosis of prostate cancer in the past,
metastatic with bone involvement.
#1. Acute hypoxic respiratory failure.
-Suspect this is related to large recurring pleural effusion with near complete collapse of the right lung.
-Continue O2 support, s/p IR guided thoracentesis
- Anticipate patient will need home oxygen considering loculated effusion and suboptimal improvement in aeration postthoracentesis
#2. Malignant pleural effusion, recurrent, right side
- Thoracentesis, 12/22/2024. 2 L sanguinous fluid removed, cytology positive for pulmonary adenocarcinoma.
- Pleural fluid cytology: Pulmonary adenocarcinoma, immunohistochemical staining, TTF-1/Napsin A positive
- PET/CT from July 2024 showed FDG avid mediastinal and hilar lymphadenopathy as well as right upper and lower lobe areas with increased SUV intake, suspect these changes reflected primary lung cancer
- Repeat thoracentesis, 12/30, 400 mL of sanguinous fluid removed, composition appears to be similar to the previous sample. Cytology and cultures pending. Gram stain negative so far.
- Oncology service on case, plan for outpatient ASEPT placement, to be arranged by oncology service
#3. History of prostate cancer
- Original diagnosis in January 2023. Metastatic bony disease noted. Continue follow-up with oncology service
Other medical diagnoses:
hyperlipidemia
CAD s/p PCI with stent
GERD
TIA
SAI
BPH
metastatic prostate cancer
Left Wrist surgery (bones removed)
Colonoscopy 2015
B/L knees TKR
Hiatal Hernia repair
cardiac stent placement 01/2018
cataracts/IOL
Former Smoker (quit in October 1974)
Total time spent on this consultation/encounter _47___ minutes which includes review of history, physical exam, medications, laboratory data, personal review of imaging, extensive review of outpatient records, discussion with care team and
respiratory therapy.
Data:
CT Chest/Abd/Pelvis 12/2024: 1. No significant acute abnormality identified in the abdomen or pelvis, within the limits of unenhanced CT, as described above.
2. Moderate diffuse colonic stool burden may reflect constipation.
3. Large right pleural effusion with probable dependent blood products, new from prior.
4. Redemonstration of mixed lytic/sclerotic osseous metastases within the lumbar spine/sacrum.
Pleural fluid cytology 12/2024: Pulmonary adenocarcinoma, immunohistochemical staining, TTF-1/Napsin A positive
PET-CT 07/2024: Low pretracheal lymph nodes with SUV 3.6, precarinal lymph node enlarged with SUV of 3.3, subcarinal lymphadenopathy, SUV 3.3. Right hilar lymphadenopathy with max SUV 5.0. Right lower lobe posterior consolidation, SUV 6.1. Right
upper lobe 3.1 cm area of pleural-based consolidation SUV 5.0. Diffuse right lung intralobular septal thickening.
In addition, foci of increased BCMA activity within the prostate gland and lytic destructive lesions within the L2 vertebral body and L2-3 posterior elements consistent with metastasis.
ECHO 01/2024: Normal biventricular size and systolic function without regional wall motion
abnormality.
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
Mildly dilated ascending aorta.
Compared to the prior 10/23/22, the ascending aorta is now mildly dilated.
[facility] 01/2018: Normal left ventricular function with EF 61%
2: Single vessel CAD with severe proximal to mid LAD stenosis
3. Successful stenting of 95% proximal to mid LAD lesion using 3.25 x 18 Xience V PRISCILA with outstanding result
4. Recommend dual antiplatelet therapy for 6-12 months
Subjective Data
-
Date of Service:
Date of Service: December 31, 2024
Subjective:
Patient reports feeling better after thoracentesis.
Review of Systems
Genitourinary: Other (All 14 systems reviewed and negative except as stated above in the history of present illness.)
Objective Data
Data Reviewed
Vital Signs / I&O / Oxygen:
Vital Signs
Temp Pulse Resp BP Pulse Ox
97.4 F 106 18 112/66 96
12/31/24 11:05 12/31/24 11:05 12/31/24 11:05 12/31/24 11:05 12/31/24 11:05
Intake and Output
12/30/24 12/31/24 01/01/25
06:59 06:59 06:59
Intake Total 120 / 120
Output Total 100 / 100
Balance
SaO2 96
Nasal Cannula flow liters per 2
minute
Physical Exam
General: Comfortable
HEENT: Normocephalic
Cardiovascular: S1-S2
Respiratory: Other (Air entry somewhat improved after thoracentesis.)
GI: Soft
Neurology: Awake and Alert
Skin: Warm
Labs/Micro/Reports
Lab Data
12/31/24 06:20
12/31/24 06:19
Microbiology
12/30/24 16:53 Pleural Fluid Body Fluid Culture - Preliminary
No Growth After 18-24 Hours
12/30/24 16:53 Pleural Fluid Gram Stain - Preliminary
--- NOTE | 2024-12-31 14:27 | W.PN.HOSP.TC ---
Addendum entered and electronically signed by Mariola Bhandari MD 12/31/24 15:08:
refused PT to see
Ambulated with RN
DC PT
Addendum entered and electronically signed by Mariola Bhandari MD 12/31/24 14:55:
Normal LV size and function with no regional wall motion abnormalities.
LVEF is 55-60% by Mcknight's method of discs. Mild concentric LVH.
Normal right ventricular size and function.
Bi-leaflet mitral valve prolapse. Mild mitral regurgitation.
Possible torn chordae involved in the TV anterior leaflet leading to moderate
to severe tricuspid regurgitation.
Estimated pulmonary artery pressure of 50 mmHg assuming a right atrial pressure
of 3 mmHg.
Dilated aortic root. Sinus of Valsalva measures 4.2 cm.
Compared to prior from January 21, 2024, there is new moderate to severe tricuspid
valve regurgitation, previously mild. Estimated PASP is now moderately
elevated at 50 mmHg, previously 30-35 mmHg.
Echo discussed with cardiology on-call.
Patient does not have any symptoms of lower extremity edema. His pleural effusion is likely malignant in nature. He does not have a fever. He needs to follow-up with cardiology which Dr. Bennett will arrange.
Patient is aware that if he develops any lower extremity edema, shortness of breath or fever he needs to come back.
Suspicion of endocarditis is very low however with his history we will get blood cultures drawn for completion .
Patient absolutely does not want to stay in the hospital anymore. He is demanding to be discharged and he will not have a visiting nurse come home. He states that it is his life and he does not want to many people. States that his sister will
come and live with him starting tonight
He is aware about the 'leaky heart valve' and the need to follow-up with cardiology.
Appt given with Kylee Tevin for 01/28/25 at 11 am.
I cannot reach sister.
time spent 45 min
Original Note:
Today's Communication/Plan
-
Discharge
Assessment / Plan
Assessment / Plan
CVS: S1-S2 normal
Chest: decreased BS right
Abdomen: Soft, NT / Bowel sounds present
Extremities: No edema
wants to go home
Off O2 sats 94 %
CT scan of the chest abdomen and pelvis 12/30/2024-no significant acute abnormality of the abdomen or pelvis. Moderate diffuse colonic stool burden. Large right pleural effusion with probable dependent blood products. Redemonstration of mixed
lytic/sclerotic osseous metastasis within the lumbar spine/sacrum.
# Recurrent right pleural effusion secondary to stage IV adenocarcinoma of the lung
As per pathology from last thoracentesis from 12/22/2024
PD-L1 added on
Status postthoracentesis on 12/30/2024 400 mL of fluid. Ultrasound showed multiple septations.
Repeat fluid studies including cytology
Plan is for aseptic catheter as outpatient
Oncology to arrange this ,he is at high risk for reaccumulation and readmission/ER visit for thoracentesis
Currently he feels much better after thoracentesis
# Acute hypoxic respiratory insufficiency-secondary to above.
# Coronary disease with history of PCI and proximal to mid LAD drug-eluting stent 2018- Add ASA
# Hyperlipidemia-Repatha
# Hiatal hernia/GERD
# TIA history-Add ASA
# Metastatic prostate . Completed 2 rounds of radiation ended in September 2024. Patient follows with [facility]. On abiraterone. Prednisone. Flomax. Lupron due on 01/28/2025
# Insomnia-continue trazodone
# History of mitral valve endocarditis in 2008
# Ex-smoker quit in 1974
# DVT prophylaxis-Lovenox
# Full code
D/W Pulm and Oncology. Both Ok for discharging the patient, oncology will make arrangements for outpatient follow-up
D/W Case management
D/W RN
Patient wants to be discharged. I tried to call his sister not able to reach
Nursing ambulated the patient in the matson and he is doing well.
He wants a ride home.
Part of this note was created using voice recognition system. Occasional wrong word or��sound alike� substitutions may have inadvertently occurred due to the inherent limitations of voice recognition software. If noted kindly bring it to my
attention for correction.
More than 30 minutes spent in discharge including
Final examination of the patient
Summarizing hospital stay
Instructions for continuing care to all relevant caregivers
Preparation of discharge records, prescriptions, and referral forms
Total time spent (in minutes): 37 minutes
Anticipated Discharge: Today
Subjective/Interval History
-
Date of Service: December 31, 2024
Objective Data
-
Labs:
Laboratory Results
12/31/24 12/31/24
06:19 06:20
WBC 6.1
Hgb 9.3 L
Hct 28.4 L
Plt Count 264
Sodium 134 L
Potassium 4.8
Chloride 102
Carbon Dioxide 30
BUN 31 H
Creatinine 1.2
Glucose 116 H
Calcium 8.6
Vital Signs:
Vital Signs
Temp Pulse Resp BP Pulse Ox
97.4 F 106 18 112/66 96
12/31/24 11:05 12/31/24 11:05 12/31/24 11:05 12/31/24 11:05 12/31/24 11:05
I&O
12/30/24 12/31/24 01/01/25
06:59 06:59 06:59
Intake Total 120 / 120
Output Total 100 / 100
Balance
[2024-12-31 14:42] VITALS: BP 123/66
--- NOTE | 2024-12-31 14:57 | W.DS.TRANS ---
DC Summary - [employer]
-
Discharge Instructions:
Discharge Diagnosis/Procedures Recurrent pleural effusion on the right
Adenocarcinoma of the lung
Prostate cancer
History of TIA
Coronary artery disease
Anemia
Instructions:
Stand-Alone Forms:
Changes to Home Medications: Yes
Discharge Medications:
DC Medications w/original date entered in [employer]
abiraterone 250 mg tablet 1,000 mg PO DAILY Cancer 12/22/24
cholecalciferol (vitamin D3) 25 mcg (1,000 unit) tablet (Vitamin D3) 25 mcg PO DAILY Supplement 12/22/24
evolocumab 140 mg/mL subcutaneous pen injector (Repatha SureClick) 140 mg SC Q2W High Cholesterol 12/22/24
hydrocodone 5 mg-acetaminophen 325 mg tablet 1 - 2 tab PO Q6HPRN PRN severe pains 12/22/24
oxycodone 5 mg tablet 5 mg PO Q6HPRN PRN break through pain 12/22/24
prednisone 5 mg tablet 5 mg PO BID Anti-Inflammatory 12/22/24
tamsulosin 0.4 mg capsule (Flomax) 0.4 mg PO BID Urinary Issue 12/22/24
trazodone 50 mg tablet 50 mg PO HSPRN PRN sleep 12/22/24
vitamin B complex 1 tab PO DAILY Supplement 12/22/24
aspirin 81 mg tablet,delayed release 81 mg PO DAILY Blood clot prevention/tx #0 tabs 12/31/24
ferrous sulfate 325 mg (65 mg iron) tablet (FeroSul) 325 mg PO DAILY anemia #0 tabs 12/31/24
polyethylene glycol 3350 17 gram oral powder packet (Miralax) 17 g PO DAILY Constipation #0 ea 12/31/24
sennosides 8.6 mg tablet (Shu-dallas) 8.6 mg PO BID Constipation #0 tabs 12/31/24
Home Medication Changes
new
aspirin 81 mg tablet,delayed release 81 mg PO DAILY Blood clot prevention/tx #0 tabs 12/31/24
ferrous sulfate 325 mg (65 mg iron) tablet (FeroSul) 325 mg PO DAILY anemia #0 tabs 12/31/24
polyethylene glycol 3350 17 gram oral powder packet (Miralax) 17 g PO DAILY Constipation #0 ea 12/31/24
sennosides 8.6 mg tablet (Shu-dallas) 8.6 mg PO BID Constipation #0 tabs 12/31/24
Pending Results: Yes (blood cultures)
--- NOTE | 2024-12-31 15:04 | W.DS.TRANS ---
Addendum entered and electronically signed by Mariola Bhandari MD 12/31/24 16:12:
Dictation- [id number]
Original Note:
DC Summary - [employer]
-
Discharge Instructions:
Discharge Diagnosis/Procedures Recurrent pleural effusion on the right
Adenocarcinoma of the lung
Prostate cancer
History of TIA
Coronary artery disease
Anemia
Instructions:
Stand-Alone Forms:
Changes to Home Medications: Yes
Discharge Medications:
DC Medications w/original date entered in [employer]
abiraterone 250 mg tablet 1,000 mg PO DAILY Cancer 12/22/24
cholecalciferol (vitamin D3) 25 mcg (1,000 unit) tablet (Vitamin D3) 25 mcg PO DAILY Supplement 12/22/24
evolocumab 140 mg/mL subcutaneous pen injector (Repatha SureClick) 140 mg SC Q2W High Cholesterol 12/22/24
hydrocodone 5 mg-acetaminophen 325 mg tablet 1 - 2 tab PO Q6HPRN PRN severe pains 12/22/24
oxycodone 5 mg tablet 5 mg PO Q6HPRN PRN break through pain 12/22/24
prednisone 5 mg tablet 5 mg PO BID Anti-Inflammatory 12/22/24
tamsulosin 0.4 mg capsule (Flomax) 0.4 mg PO BID Urinary Issue 12/22/24
trazodone 50 mg tablet 50 mg PO HSPRN PRN sleep 12/22/24
vitamin B complex 1 tab PO DAILY Supplement 12/22/24
aspirin 81 mg tablet,delayed release 81 mg PO DAILY Blood clot prevention/tx #0 tabs 12/31/24
polyethylene glycol 3350 17 gram oral powder packet (Miralax) 17 g PO DAILY Constipation #0 ea 12/31/24
sennosides 8.6 mg tablet (Shu-dallas) 8.6 mg PO BID Constipation #0 tabs 12/31/24
Home Medication Changes
new
polyethylene glycol 3350 17 gram oral powder packet (Miralax) 17 g PO DAILY Constipation #0 ea 12/31/24
sennosides 8.6 mg tablet (Shu-dallas) 8.6 mg PO BID Constipation #0 tabs 12/31/24
Pending Results: Yes (blood cx)
[2024-12-31] MEDS: MILK OF MAGNESIA 30 ML PO (15:13)
== END 2024-12-31 16:30 | disposition home or self-care (01) | DRG 180 ==
LOC: 4 WEST ACU 12:44
PROVIDERS: Radiology Vascular & Interventional Radiology; ADMITTING PHYSICIAN Hospitalist; CONSULT PHYSICIAN Internal Medicine; EMERGENCY PHYSICIAN Emergency Medicine; FAMILY PHYSICIAN Family Medicine; OTHER PHYSICIAN Internal Medicine Hematology & Oncology
PROC: 0W993ZX Drainage of Right Pleural Cavity, Percutaneous Approach, Diagnostic (ICD-10-PCS; 2024-12-30)
DX: C34.90 Malignant neoplasm of unspecified part of unspecified bronchus or lung (principal); I51.1 Rupture of chordae tendineae, not elsewhere classified; J96.01 Acute respiratory failure with hypoxia; C90.00 Multiple myeloma not having achieved remission; J91.0 Malignant pleural effusion; R18.8 Other ascites; H26.9 Unspecified cataract; I25.10 Atherosclerotic heart disease of native coronary artery without angina pectoris; E78.00 Pure hypercholesterolemia, unspecified; C61 Malignant neoplasm of prostate; G47.00 Insomnia, unspecified; I10 Essential (primary) hypertension; K44.9 Diaphragmatic hernia without obstruction or gangrene; K21.9 Gastro-esophageal reflux disease without esophagitis; G47.33 Obstructive sleep apnea (adult) (pediatric); R59.0 Localized enlarged lymph nodes; D63.8 Anemia in other chronic diseases classified elsewhere; R74.8 Abnormal levels of other serum enzymes; K59.09 Other constipation; N40.0 Benign prostatic hyperplasia without lower urinary tract symptoms; M19.90 Unspecified osteoarthritis, unspecified site; Z60.2 Problems related to living alone; Z96.653 Presence of artificial knee joint, bilateral; Z87.891 Personal history of nicotine dependence; Z95.5 Presence of coronary angioplasty implant and graft; Z82.49 Family history of ischemic heart disease and other diseases of the circulatory system; Z86.79 Personal history of other diseases of the circulatory system; Z86.73 Personal history of transient ischemic attack (TIA), and cerebral infarction without residual deficits; Z92.3 Personal history of irradiation; Z79.52 Long term (current) use of systemic steroids
CPT/HCPCS: 88305; 32555; 71045; 71046; 71250; 74176; 80048; 80053; 82607; 82728; 83540; 83550; 83615; 83690; 83735; 83880; 83986; 84157; 84443; 85025; 87015; 87040; 87070; 87116; 87205; 88112; 89051; 93005; 93306; 94761; 96374; 96375; 99285

== ENCOUNTER 2025-01-01 19:06 | Inpatient (IN) | payer OTHER, SELFPAY ==
[2025-01-01] VITALS (8 sets, daily range): BP systolic 105–139; BP diastolic 74–85; BMI 22.1; BMI 21.9
--- NOTE | 2025-01-01 17:23 | ED.GENMED ---
History of Present Illness
General
Chief Complaint: Breathing Problem
Time Seen by Provider: 01/01/25 17:11
History of Present Illness
History of Present Illness:
89-year-old male with recent diagnosis of adenocarcinoma of the lung with recurrent pleural effusion presenting to the emergency department for shortness of breath. Patient reports that he started to feel short of breath this morning when he woke
up. Recent admission from 12/30 to 12/31 at which time patient was found to have a pleural effusion, status post drainage of 400 cc. Patient was discharged home to follow-up with heme-onc for further treatment. Patient denies cough fever. Denies
pain in his chest. Notes chronic lower extremity swelling. Denies abdominal pain. Does report some pain on the right side of his mid axillary region where the pleural effusion was drained. Denies additional acute medical complaints
Past History
Past History
ED Past Medical History: Cancer, HTN, Hypercholesterolemia and Other (Multiple myeloma, Sinus Problems, Hiatal hernia, BPV, Endocarditis)
ED Past Surgical History: Cardiac (Stent)
Social History
Tobacco: Former smoker
Alcohol: Occasional (one Martini)
Drug: None
Personal:
Living: alone
Phy Exam
Physical Exam
Physical Exam:
General: Well-appearing, no clinical signs of dehydration, nontoxic and in no acute distress
HEENT: protecting airway
Neck: appears supple
CV: Normal heart rate, regular rhythm
Resp: No accessory muscle use, no increased work of breathing, on supplemental O2. Diminished breath sounds to the entirety of the right lung field
Abd: Soft and non-distended, no tenderness to palpation
Extremities: No deformities, +1 lower extremity edema. No erythema
Neuro: alert, no focal neurologic deficit
: deferred
Rectal: deferred
Psych: Normal affect
Skin: Intact
Scores
Heart Failure Risk
Heart Failure Risk Score: Not Applicable
Course
Orders/Labs/Results
Orders:
Orders
01/01/25 Dinner
Cholesterol Lowering
At Your Request: Full Participation
Cholesterol Lowering: Sodium, 2 Gram
01/01/25 17:15
Electrocardiogram (*1) Stat
Reason for Study: Other
Other Reason for Exam: chest pain
EKG- Treatment ONCE
CR Chest Portable - 1 View Urgent
Comment:
Reason For Exam: hypoxic, hx pleural effusions
Reason Study Needs to be Portable: Patient Unstable
01/01/25 17:22
Complete Blood Count/With Diff Urgent
Comprehensive Metabolic Panel Urgent
PTT Urgent
Prothrombin Time Urgent
01/01/25 18:15
Fentanyl Citrate/Pf [Sublimaze] 50 mcg IV NOW STA
01/01/25 18:51
Admit/Transfer Patient As Directed
Co-Sign Provider:
Level of Care: Inpatient admission
Assign to:: Medical/Surgical
Physician / Group: [email or web address]
Diagnosis: recurrent Rt sided symtomatic malignant pleural effusion
Reason for Hospitalization: recurrent Rt sided symptomatic malignant pleural effusion
Expected length of stay greater than two midnights?: Yes
ELOS- Estimated Length of Stay in days: 3
I certify the patient meets the requirements for IP care: Yes
01/01/25 18:54
Code Status As Directed
Resuscitation Status: Full Code
01/01/25 19:00
HYDROmorphone [Dilaudid] 0.5 mg IV NOW STA
01/01/25 19:03
HYDROmorphone [Dilaudid] 0.5 mg .ROUTE .STK-MED ONE
01/01/25 20:29
Acetaminophen [Tylenol] 650 mg PO Q4HPRN PRN
Bisacodyl [Dulcolax] 10 mg RECTAL [id number] PRN
Docusate W/Senna [Senokot-S] 1 tablet PO BIDPRN PRN
Hydrocodone 5/APAP 325 [Bovina 5/325] 1 tablet PO Q6HPRN PRN severe pains
Oxycodone [Roxicodone] 5 mg PO Q6HPRN PRN break through pain
Polyethylene Glycol Powder [Miralax] 17 grams PO DAILYPRN PRN
Prednisone [Deltasone] 5 mg PO BID
Sennosides [Senokot] 8.6 mg PO BID
Tamsulosin [Flomax] 0.4 mg PO BID
Trazodone [Desyrel] 50 mg PO HSPRN PRN sleep
01/01/25 20:29
Consult Interventional Radiology [IRAD CONSULT] Routine
Consulting Provider: Anuj Fowler
Was physician already notified: Yes
Procedure being ordered, including laterality if: recurrent Rt sided symtomatic malignant pleural
applicable: effusion
Acknowledgement that appropriate orders are entered: Yes
Body Fluid Amylase Routine
Fluid Source: Pleural
Body Fluid Cell Count Routine
What is the Body Fluid: pleural fluid
Comment: post procedure
Body Fluid Glucose Routine
Fluid Source: Pleural
Body Fluid LDH Routine
Fluid Source: Pleural
Body Fluid Protein Routine
Fluid Source: Pleural
Body Fluid pH Routine
Fluid Source: Pleural
Hematocrit Routine
LDH Routine
Comment: post procedure, add on to morning labs if already drawn
Total Protein Routine
Comment: post procedure, add on to morning labs if already drawn
Activity As Directed
Activity Level: With Assistance
Intake/ Output As Directed
Frequency: Per unit guidelines
Vital Signs As Directed
Frequency: Per unit guidelines
Weight As Directed
Frequency: Daily
IRAD Cytology Routine
Source: Pleural Fluid, Right
Clinical Impression: recurrent Rt sided symtomatic malignant pleural effusion
DX Deep Vein Thrombosis Video Routine
01/02/25 06:00
Basic Metabolic Panel IN AM
Complete Blood Count/No Diff IN AM
01/02/25 08:00
Aspirin Low Dose EC [Aspir Low (Enteric Coated)] 81 mg PO DAILY
Polyethylene Glycol Powder [Miralax] 17 grams PO DAILY
abiraterone See Dose Instructions PO DAILY
01/02/25 18:00
Enoxaparin Sodium [Lovenox] 40 mg SC QPM
Abnormal Lab Results
01/01/25
17:22
RBC 2.95 L 10^6/uL
(4.70-6.10)
Hgb 8.6 L g/dL
(13.0-18.0)
Hct 26.4 L %
(39.0-52.0)
MCHC 32.6 L g/dL
(33.0-37.0)
Absolute Lymphs (auto) 0.2 L 10^3/uL
(1.2-3.4)
Absolute Monos (auto) 0.7 H 10^3/uL
(0.1-0.6)
Neutrophils % 82.1 H %
(42.2-75.2)
Lymphocytes % 3.0 L %
(20.5-51.1)
Monocytes % 11.6 H %
(1.7-9.3)
APTT 37.1 H Sec
(23.4-35.0)
Sodium 131 L mmol/L
(135-145)
BUN 32 H mg/dl
(9-20)
Glucose 117 H mg/dl
(70-99)
Calcium 8.3 L mg/dl
(8.4-10.2)
Alkaline Phosphatase 149 H U/L
(38-126)
Total Protein 5.0 L g/dl
(6.3-8.2)
Albumin 2.7 L g/dl
(3.5-5.0)
01/01/25 17:22
01/01/25 17:22
Vital Signs
Initial and Last Documented VS:
Initial Vital Signs
Temp Pulse Resp BP Pulse Ox
98.2 F 73 18 118/76 93
01/01/25 16:34 01/01/25 16:34 01/01/25 16:34 01/01/25 16:34 01/01/25 16:34
Last Documented Vital Signs
Temp Pulse Resp BP Pulse Ox
97.8 F 104 18 139/81 99
01/01/25 23:34 01/01/25 23:34 01/01/25 23:34 01/01/25 23:34 01/01/25 23:34
MDM/Problems Addressed
MDM/Problems Addressed:
89-year-old male with recent diagnosis of lung adenocarcinoma and recurrent right pleural effusion presenting for shortness of breath, status post discharge from hospital with thoracentesis yesterday. Vital signs arrival significant for tachypnea.
On exam patient is resting comfortably, however placed on supplemental O2 prior to my assessment. Diminished air movement to the entirety of the right lung field with concern for reaccumulation of pleural fluid. Plan for labs and chest x-ray
imaging. Will likely require IR intervention.
18:00 -chest x-ray again shows reaccumulation of right pleural fluid with compressive atelectasis mediastinal shift. Patient currently stable. IR made aware. Will require drainage of the pleural fluid. Plan for admission with IR consultation.
*Pulse Oximetry
SaO2: 90
Nasal Cannula flow liters per minute: 4
Oxygen Mode of Delivery: Room air
*Critical Care Note
Total Time (30-74mins, 75-104mins- exclusive of procedures): Not Applicable
ED Attending Note
-
Portions of this chart may have been created with voice recognition software.� Occasional wrong word or��sound alike� substitutions may have occurred due to the inherent limitations of voice recognition software.
Discharge Plan
Departure
Patient Disposition: Admit
Date of Disposition: 01/01/25
Time of Disposition: 18:10
Presentation/result/management discussed w/ accepting MD/DO: Hospitalist
Patient with high blood pressure during this ER visit?: No
Condition: Fair
Discharge Problem:
Pleural effusion, Dyspnea
Interventions
Interventions:
*Risk Screen - Suicide Last Done: 01/01/25 23:28
*General Assessment Last Done: 01/01/25 16:42
*Neglect/Abuse Screening Last Done: 01/01/25 16:42
*ED- Fall Risk Assessment Last Done: 01/01/25 16:42
*ED COVID-19 Vaccine History Last Done: 01/01/25 23:28
*Nursing Disposition Last Done: 01/01/25 20:16
ED- Cardiac Assessment Last Done: 01/01/25 16:42
ED- Pulmonary Assessment Last Done: 01/01/25 16:42
[2025-01-01 17:40] LABS: % Basophils 0.3 % (0-2); % Eosinophils 2.7 % (0-6); % Immature Granulocytes 0.3 % (0-0.5); % Monocytes 11.6 % (1.7-9.3); % Neutrophils 82.1 % (42.2-75.2); Absolute Eosinophils 0.2 10^3/uL (0-0.7); Absolute Lymphocytes 0.2 10^3/uL (1.2-3.4); Absolute Monocytes 0.7 10^3/uL (0.1-0.6); Absolute Neutrophils 4.9 10^3/uL (1.4-6.5); Hematocrit 26.4 % (39.0-52.0); Hemoglobin 8.6 g/dL (13.0-18.0); Mean Corp Hgb Conc. 32.6 g/dL (33.0-37.0); Mean Corpuscular Hgb 29.2 pg (27.0-31.0); Mean Corpuscular Volume 89.5 fL (80.0-94.0); Mean Platelet Volume 9.7 fL (7.4-10.4); Nucleated Red Blood Cells % 0 % (-); Platelet Count 292 10^3/uL (130-400); Red Blood Cell Count 2.95 10^6/uL (4.70-6.10); Red Cell Dist. Width 13.7 % (11.5-14.5)
[2025-01-01 17:51] LABS: INR 1.03; PT 13.8 Sec (11.4-14.6)
[2025-01-01 17:52] LABS: APTT 37.1 Sec (23.4-35.0)
[2025-01-01 17:56] LABS: ALT (SGPT) 19 U/L (0-50); AST (SGOT) 27 U/L (17-59); Albumin 2.7 g/dl (3.5-5.0); Alkaline Phosphatase 149 U/L (38-126); Blood Urea Nitrogen 32 mg/dl (9-20); Calcium 8.3 mg/dl (8.4-10.2); Carbon Dioxide 26 mmol/L (22-30); Chloride 100 mmol/L (98-107); Estimated Creatinine Clearance 42 ml/min; Glucose 117 mg/dl (70-99); Potassium 4.5 mmol/L (3.5-5.1); Sodium 131 mmol/L (135-145); Total Bilirubin 0.6 mg/dl (0.2-1.3); eGFR 58.17
[2025-01-01] MEDS: SUBLIMAZE 50 MCG IV (18:32)
--- NOTE | 2025-01-01 18:36 | HPS.HSE ---
Family Physician
-
Family Physician: Jan Orantes
Chief Complaint
-
sob , was DC'd from yesterday 12/31/24Friday
History of Present Illness
89M who was DC'd yesterday (12/31/24) HX recurrent right malignant large hemmorhagic pleural effusion , POS Cytology on 12/22, malignancy, pulmonary adenocarcinoma and metastatic prostate cancer, acute on chronic anemia Hgb, elevated alk phos
suspcted bony mets retured to ER due to SoB.
- feel short of breath this morning when he woke up.
- Recent admission from 12/30 to 12/31 Dxed pleural effusion, status post drainage of 400 cc.
- Patient was discharged home to follow-up with heme-onc for further treatment.
- Does report some pain on the right side of his mid axillary region where the pleural effusion was drained.
- chronic lower extremity swelling.
ROS
- denies cough fever.
- denies pain in his chest.
- denies abdominal pain.
- denies additional acute medical complaints
Medical History
Past Medical History
Past Medical History: Reports Other
Additional Past Medical History:
Pleural effusion, H/O Endocarditis,Hyperlipidemia,Hiatal hernia, coronary artery disease, arthritis, impaired vision, prostate cancer, cognitive dysfunction
Past Surgical History: Reports Other
Additional Past Surgical History:
Bilateral knee surgery, wrist surgery, cardiac stent
Social History
Tobacco: Former Smoker
Alcohol: Occasional
Drug: None
Living: Alone
Employment: Not Employed
Family History
Family History: Early CAD (father) and Other (mom chf)
Allergies / Home Medications
Allergies reflects when Allergies were last updated in [employer].
Home Medications with original date entered in [employer]
Allergy/Medication List:
Allergies
Allergy/AdvReac Type Severity Reaction Status Date / Time
No Known Allergies Allergy Verified 06/19/25 09:42
Home Medications
abiraterone 250 mg tablet 1,000 mg PO DAILY 12/22/24
cholecalciferol (vitamin D3) 25 mcg (1,000 unit) tablet (Vitamin D3) 25 mcg PO DAILY 12/22/24
evolocumab 140 mg/mL subcutaneous pen injector (Repatha SureClick) 140 mg SC Q2W 12/22/24
hydrocodone 5 mg-acetaminophen 325 mg tablet 1 - 2 tab PO Q6HPRN PRN severe pains 12/22/24
oxycodone 5 mg tablet 5 mg PO Q6HPRN PRN break through pain 12/22/24
prednisone 5 mg tablet 5 mg PO BID 12/22/24
tamsulosin 0.4 mg capsule (Flomax) 0.4 mg PO BID 12/22/24
trazodone 50 mg tablet 50 mg PO HSPRN PRN sleep 12/22/24
vitamin B complex 1 tab PO DAILY 12/22/24
polyethylene glycol 3350 17 gram oral powder packet (Miralax) 17 g PO DAILYPRN PRN CONSTIPATION 12/30/24
Review of Systems
-
A 12 point ROS was completed and negative except as noted: Yes
Respiratory: Reports Cough and Trouble Breathing
Cardiac: Reports Chest Pain (right side)
Abdomen/GI: Denies Abdominal Pain
Physical Exam
Vital Signs
Vital Signs
Temp Pulse Resp BP Pulse Ox
98.2 F 95 22 109/74 99
01/01/25 16:34 01/01/25 18:15 01/01/25 18:15 01/01/25 18:00 01/01/25 18:15
Physical Exam
General: Conversant and Respiratory Distress
HEENT: NormoCephalic, Moist mucous membranes and Atraumatic
Respiratory: Decreased Breath Sounds ( Diminished breath sounds to the entirety of the right lung field)
Cardiac: S1/S2 and Regular Rhythm
GI: Soft, Non Tender, Non Distended and Normal Bowel Sounds; No Organomegaly
Rectal: Deferred by Provider
Musculoskeletal: Edema, Left Lower Extremity and Edema, Right Lower Extremity
Skin: No Rash
Neuro: No Motor Deficits and Nonfocal/grossly intact
Laboratory Results
-
01/01/25 17:22
01/01/25 17:22
Laboratory Results
PT 13.8 Sec (11.4-14.6) 01/01/25 17:22
INR 1.03 01/01/25 17:22
APTT 37.1 Sec (23.4-35.0) H 01/01/25 17:22
Total Bilirubin 0.6 mg/dl (0.2-1.3) 01/01/25 17:22
AST 27 U/L (17-59) 01/01/25 17:22
ALT 19 U/L (0-50) 01/01/25 17:22
Alkaline Phosphatase 149 U/L (38-126) H 01/01/25 17:22
Data Reviewed
-
Diagnostic Radiology: Report Reviewed by me
Medical Tests (Nuc Med, Echo, EKG etc): Report Reviewed by me
Lab Data: Labs Reviewed by me
Old Records: Reviewed
Impression/Plan
-
Relevant labs
Laboratory Tests
12/31/24 12/31/24 01/01/25
06:19 06: 17:22
WBC 6.1 6.0
Hgb 9.3 L 8.6 L
INR 1.03
Sodium 134 L 131 L
Potassium 4.5
BUN 32 H
Creatinine 1.2 1.2
eGFR 58.17 58.17
01/01/25 CXR
1. VERY LARGE RIGHT PLEURAL EFFUSION causing complete compressive atelectasis of the right upper, lower, and middle lobes and mild right to left mediastinal shift.
2. Mild interstitial and alveolar cardiogenic pulmonary edema in the left lung.
3. Many small subcentimeter pulmonary metastases in the left lung.
4. Severe calcific atherosclerotic plaque in the coronary arteries and thoracic aorta.
12/31/24 CXR
There is complete opacification of the right hemithorax. CT shows that this is a pleural effusion with compressive atelectasis.
12/30/24 CT C/A/P
no significant acute abnormality of the abdomen or pelvis. Moderate diffuse colonic stool burden. Large right pleural effusion with probable dependent blood products. Remonstration of mixed lytic/sclerotic osseous metastasis within the lumbar
spine/sacrum.
Last hospitalist admission: 12/30/2024 - 12/31/2024
DISCHARGE DIAGNOSES:
1. Recurrent pleural effusion on the right.
2. Adenocarcinoma of the lung.
3. Prostate cancer.
4. History of transient ischemic attack.
5. Coronary artery disease.
6. Anemia.
ASSESSMENT & PLAN
Pending Rx reconciliation
Recurrent malignant Rt pleural effusion secondary to stage IV adenocarcinoma of the lung
Associated with hypoxic respiratory insufficiency due to above.
POS Rt sided pleural fluid cytology 12/22/2024
S/P R sided thoracentesis on 12/30/2024 yielded hemorrhagic 400 mLof pleural fluid.
US multiple septations.
- pending repeat fluid studies including cytology
- plan is for Asept catheter placement due to high risk for reaccumulation and readmission
- IR consulted by ER
HX Metastatic prostate CA
s/p 2 rounds of XRT ended in September 2024
- follows with [facility]
- on Abiraterone, Prednisone 5mg BID - reportedly PSA has normalized suggesting excellent response to therapy per Oncologist
- Lupron due on 01/28/2025
Known HX
HX TIA on ASA and Repatha
HX PCI and proximal to mid LAD drug-eluting stent 2018 on ASA
HX HD Hyperlipidemia on Repatha
HX Hiatal hernia/GERD
HX Insomnia on trazodone
HX mitral valve endocarditis in 2008
Ex-smoker quit in 1974
DVT Px: LMWH
Full code
IP MS
[2025-01-01] MEDS: DILAUDID 0.5 MG IV (19:05)
[2025-01-01] MEDS: DILAUDID 1 MG IV (20:13)
[2025-01-01] MEDS: SENOKOT 8.6 MG PO (22:39)
[2025-01-01] MEDS: NORCO 5/325 1 TABLET PO (22:39)
[2025-01-01] MEDS: FLOMAX 0.4 MG PO (22:40)
[2025-01-01] MEDS: DELTASONE 5 MG PO (22:40)
[2025-01-02 00:37] LABS: LDH 221 U/L (120-246); Total Protein 5.5 g/dl (6.3-8.2)
[2025-01-02] MEDS: ROXICODONE 5 MG PO ×2 (03:54→17:19)
[2025-01-02 04:42] VITALS: BP 133/83
[2025-01-02] MEDS: DILAUDID 0.5 MG IV (04:46)
[2025-01-02 06:00] VITALS: BMI 21.8
[2025-01-02 07:17] LABS: Hematocrit 25.6 % (39.0-52.0); Hemoglobin 8.8 g/dL (13.0-18.0); Mean Corp Hgb Conc. 34.4 g/dL (33.0-37.0); Mean Corpuscular Hgb 30.1 pg (27.0-31.0); Mean Corpuscular Volume 87.7 fL (80.0-94.0); Mean Platelet Volume 10.4 fL (7.4-10.4); Platelet Count 249 10^3/uL (130-400); Red Blood Cell Count 2.92 10^6/uL (4.70-6.10); Red Cell Dist. Width 13.9 % (11.5-14.5)
[2025-01-02 07:46] LABS: Blood Urea Nitrogen 34 mg/dl (9-20); Calcium 8.4 mg/dl (8.4-10.2); Carbon Dioxide 25 mmol/L (22-30); Chloride 101 mmol/L (98-107); Estimated Creatinine Clearance 45 ml/min; Glucose 105 mg/dl (70-99); Potassium 5.2 mmol/L (3.5-5.1); Sodium 132 mmol/L (135-145); eGFR > 60.00
[2025-01-02 07:47] VITALS: BP 126/59
[2025-01-02] MEDS: FLOMAX 0.4 MG PO ×2 (07:59→20:25)
[2025-01-02] MEDS: NORCO 5/325 1 TABLET PO (08:02)
[2025-01-02] MEDS: DELTASONE 5 MG PO ×2 (08:03→20:25)
[2025-01-02] MEDS: SENOKOT 8.6 MG PO ×2 (08:03→20:25)
[2025-01-02] MEDS: ASPIR LOW (ENTERIC COATED) 81 MG PO (08:03)
[2025-01-02] MEDS: MIRALAX PO (08:04)
--- NOTE | 2025-01-02 10:51 | W.PN.HOSP.TC ---
Today's Communication/Plan
-
IR consulted for thoracentesis/Chest tube
Pain control
Assessment / Plan
Assessment / Plan
CT scan of the chest abdomen and pelvis 12/30/2024-no significant acute abnormality of the abdomen or pelvis. Moderate diffuse colonic stool burden. Large right pleural effusion with probable dependent blood products. Redemonstration of mixed
lytic/sclerotic osseous metastasis within the lumbar spine/sacrum.
Patient was admitted from 12/21/2024 through 12/22/2024 and was discharged, readmitted 12/30/2024 and discharged on 12/31/2024 both times had thoracentesis. Second time the plan was for Pleurx catheter to be placed as outpatient to be arranged through
hematology oncology. He had more shortness of breath and had to return on 01/01/2025. Patient has a lot of septations on the right pleural space needs lytic therapy.
Echo 12/31/2024-normal LV size and function with no wall motion abnormality. EF 55 to 60%. Mild concentric LVH. Normal RV size and function. Mild MR. Bileaflet mitral valve prolapse. Possible torn chordae involved in the tricuspid valve
anterior leaflet leading to moderate to severe TR. Pulmonary artery pressure 50 mmHg. Dilated aortic root.
On examination awake alert pain on the right side
Chest clear on the left
Decreased on the right
Abdomen soft and nontender
Mild pedal edema
# Recurrent right pleural effusion secondary to stage IV adenocarcinoma of the lung
As per pathology from last thoracentesis from 12/22/2024
PD-L1 added on
Status postthoracentesis on 12/30/2024 400 mL of fluid. Ultrasound showed multiple septations.
Repeat fluid studies including cytology
Plan is for aseptic catheter as outpatient
Oncology to arrange this ,he is at high risk for reaccumulation and readmission/ER visit for thoracentesis
Currently he feels much better after thoracentesis
# Acute hypoxic respiratory insufficiency-secondary to above.
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 Possible chordae torn. Discussed with cardiology last time and patient was given an outpatient appointment on 01/28/2025. Consider cardiology evaluation [facility] since the
patient is here.
# Coronary disease with history of PCI and proximal to mid LAD drug-eluting stent 2018- Added ASA last admission. Continue Repatha
# Constipation -
# Hyperlipidemia-Repatha
# Hiatal hernia/GERD
# TIA history-Add ASA
# Metastatic prostate . Completed 2 rounds of radiation ended in September 2024. Patient follows with [facility]. On abiraterone. Prednisone. Flomax. Lupron due on 01/28/2025
# Insomnia-continue trazodone
# History of mitral valve endocarditis in 2008
# Ex-smoker quit in 1974
# DVT prophylaxis-Lovenox
# Full code
D/W Pulm
Discussed with nursing
Spoke to sister and updated re cancer ad also Pleural effusion. Advised to addess CODe status again with pt
Time spent over 50 min
Anticipated Discharge: 24 - 48 hours
Subjective/Interval History
-
Date of Service: January 02, 2025
Objective Data
-
Labs:
Laboratory Results
01/02/25 01/02/25
00:11 06:54
WBC 7.0
Hgb 8.8 L
Hct 27.0 L 25.6 L
Plt Count 249
Sodium 132 L
Potassium 5.2 H
Chloride 101
Carbon Dioxide 25
BUN 34 H
Creatinine 1.1
Glucose 105 H
Calcium 8.4
Vital Signs:
Vital Signs
Temp Pulse Resp BP Pulse Ox
98.9 F 99 21 126/59 100
01/02/25 07:47 01/02/25 07:47 01/02/25 07:47 01/02/25 07:47 01/02/25 09:56
[2025-01-02] MEDS: MORPHINE SULFATE 2 MG IV ×3 (11:32→23:10)
--- NOTE | 2025-01-02 12:17 | W.PN.UPDATE ---
Update Note
Progress Note Update
- IR consulted for repeat R thora last evening, however r effusion is densely loculated and requires chest tube for adequate drainage. Discussed with pulm
- Patient however not able to provide consent this morning (oriented to person) and could not contact his sister despite three tries
- Pt also had breakfast this morning, so unable to sedate. 100% on 4LNC. Non-toxic appearing.
- At this point, will re-attempt tomorrow. Will make npo tonight.
--- NOTE | 2025-01-02 15:27 | W.PN.PUL3 ---
Today's Communication / Plan
-
- Plan for IR guided chest tube placement, might need intrapleural tPA/DNase depending on clinical course, eventually intrapleural indwelling catheter will be needed
- Recommend palliative care consult, guarded prognosis
Assessment
-
Patient is a very pleasant 89-year-old gentleman who presented to the hospital with worsening shortness of breath. Patient was admitted about a week ago for similar symptoms and was noted to have right-sided pleural effusion and had about 2 L
drained by interventional radiology. Patient subsequently was discharged and now presents about a week later with similar symptoms which have gradually worsened over the last few days. No fever, chills or expectoration reported. Workup in the
emergency room was suggestive of recurrent large right-sided pleural effusion with near complete collapse of right lung. Pulmonary consultation was requested for further input. Patient reportedly carries a diagnosis of prostate cancer in the past,
metastatic with bone involvement. Pleural fluid cytology came back positive for pulmonary adenocarcinoma. Patient was subsequently discharged home with the plan for indwelling pleural catheter placement as outpatient which will be coordinated by
oncology service.
On 01/01, patient woke up with increased shortness of breath and presented back to the emergency room. He was readmitted for drainage. Pulmonary consultation was again requested for input.
#1. Acute hypoxic respiratory failure.
-Suspect this is related to large recurring pleural effusion with near complete collapse of the right lung.
-Continue O2 support, work of breathing is sustainable right now
#2. Malignant pleural effusion, recurrent, right side (Pulmonary Adenocarcinoma)
- Thoracentesis, 12/22/2024. 2 L sanguinous fluid removed, cytology positive for pulmonary adenocarcinoma.
- Pleural fluid cytology: Pulmonary adenocarcinoma, immunohistochemical staining, TTF-1/Napsin A positive
- PET/CT from July 2024 showed FDG avid mediastinal and hilar lymphadenopathy as well as right upper and lower lobe areas with increased SUV intake, suspect these changes reflected primary lung cancer
- Repeat thoracentesis, 12/30, 400 mL of sanguinous fluid removed, composition appears to be similar to the previous sample. Cytology and cultures pending. Gram stain negative so far.
- 01/02, Discussed with IR service, in view of loculated effusion and only 400 mL of fluid removal last time, will favor chest tube placement and might even need intrapleural tPA/DNase depending upon clinical course
- Patient is afebrile, normal WBC count, pleural fluid studies have been negative for infection. Continue to monitor without antibiotics for now
#3. History of prostate cancer
- Original diagnosis in January 2023. Metastatic bony disease noted. Continue follow-up with oncology service
Other medical diagnoses:
hyperlipidemia
CAD s/p PCI with stent
GERD
TIA
SAI
BPH
metastatic prostate cancer
Left Wrist surgery (bones removed)
Colonoscopy 2015
B/L knees TKR
Hiatal Hernia repair
cardiac stent placement 01/2018
cataracts/IOL
Former Smoker (quit in October 1974)
Total time spent on this consultation/encounter _42___ minutes which includes review of history, physical exam, medications, laboratory data, personal review of imaging, extensive review of outpatient records, discussion with care team and
respiratory therapy.
Data:
CT Chest/Abd/Pelvis 12/2024: 1. No significant acute abnormality identified in the abdomen or pelvis, within the limits of unenhanced CT, as described above.
2. Moderate diffuse colonic stool burden may reflect constipation.
3. Large right pleural effusion with probable dependent blood products, new from prior.
4. Redemonstration of mixed lytic/sclerotic osseous metastases within the lumbar spine/sacrum.
Pleural fluid cytology 12/2024: Pulmonary adenocarcinoma, immunohistochemical staining, TTF-1/Napsin A positive
PET-CT 07/2024: Low pretracheal lymph nodes with SUV 3.6, precarinal lymph node enlarged with SUV of 3.3, subcarinal lymphadenopathy, SUV 3.3. Right hilar lymphadenopathy with max SUV 5.0. Right lower lobe posterior consolidation, SUV 6.1. Right
upper lobe 3.1 cm area of pleural-based consolidation SUV 5.0. Diffuse right lung intralobular septal thickening.
In addition, foci of increased BCMA activity within the prostate gland and lytic destructive lesions within the L2 vertebral body and L2-3 posterior elements consistent with metastasis.
ECHO 01/2024: Normal biventricular size and systolic function without regional wall motion
abnormality.
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
Mildly dilated ascending aorta.
Compared to the prior 10/23/22, the ascending aorta is now mildly dilated.
[facility] 01/2018: Normal left ventricular function with EF 61%
2: Single vessel CAD with severe proximal to mid LAD stenosis
3. Successful stenting of 95% proximal to mid LAD lesion using 3.25 x 18 Xience V PRISCILA with outstanding result
4. Recommend dual antiplatelet therapy for 6-12 months
Subjective Data
-
Date of Service:
Date of Service: January 02, 2025
Subjective:
Patient comfortably lying in bed in no respiratory distress. He is upset over not getting the procedure done today.
Review of Systems
Genitourinary: Other (No otherwise new symptoms reported.)
Objective Data
Data Reviewed
Vital Signs / I&O / Oxygen:
Vital Signs
Temp Pulse Resp BP Pulse Ox
98.9 F 99 21 126/59 100
01/02/25 07:47 01/02/25 07:47 01/02/25 07:47 01/02/25 07:47 01/02/25 09:56
SaO2 100
Nasal Cannula flow liters per 4
minute
Physical Exam
General: Comfortable
HEENT: Normocephalic
Cardiovascular: S1-S2
Respiratory: Other (Decreased air entry on right side )
GI: Soft and Non Distended
Neurology: Awake and Alert
Skin: Warm
Labs/Micro/Reports
Lab Data
01/02/25 06:54
01/02/25 06:54
Laboratory Results
01/01/25
17:22
PT 13.8
INR 1.03
APTT 37.1 H
[2025-01-02 15:37] VITALS: BP 121/69
[2025-01-02] MEDS: LOVENOX 40 MG SC (16:50)
--- NOTE | 2025-01-02 16:56 | CM ---
Patient with Hx Metastatic prostate CA, lung CA, recent admt with d/c 12/31 with Dx Recurrent right pleural effusion. O2 4L. NPO. Receiving IV MS prn, Roxicodone prn. Plan thoracentesis/Chest tube placement. Per nurse; forgetful, assist of 1.
Spoke with patient's sister Myranda Bustos;
the patient resides alone with his 3 cats in a 2 story home with 3 entry steps; 13 steps to the 2nd floor.
The patient was unable to care for himself after he arrived home from the hospital on 12/31 and was assisted with ADLs and ambulation by his sister.
No DME, prior VN or SNF
PCP - Jan Orantes
Pharmacy - [facility]
Myranda Bustos says she is POA for the patient however has not needed to assist him with his care or finances until now. She says it was physically difficult caring for him for the 2 days he was at home between hospital stays, and due to her advanced
age she is unsure how much she would be able to help him if he returned home. The patient had a son that and has been estranged from his daughter.
Myranda Bustos expressed concern regarding the amount of pain her brother was having at home (he was calling out loudly in pain) and also concerned related to the patient's confusion and inability to recognize her /his brother in law Dm.
Plan TBD.
[2025-01-02] MEDS: XANAX 0.25 MG PO (21:18)
--- NOTE | 2025-01-02 22:30 | PTCARENOTE ---
Pt restless, anxious, tearful at times. Difficulty remembering plan of care/reason for admission/medications received. [employer] covering house contacted regarding pt's anxiety. Electronic order received for one time dose of xanax (refer to MAR). Pt
responded well, able to rest, observed with eyes closed and even respirations. Bed alarm remains active for safety.
[2025-01-02 23:22] VITALS: BP 137/73
[2025-01-03] VITALS (12 sets, daily range): BP systolic 90–139; BP diastolic 49–77; BMI 21.8
[2025-01-03 06:47] LABS: Hematocrit 24.4 % (39.0-52.0); Hemoglobin 8.3 g/dL (13.0-18.0); Mean Corpuscular Hgb 29.7 pg (27.0-31.0); Mean Corpuscular Volume 87.5 fL (80.0-94.0); Mean Platelet Volume 9.5 fL (7.4-10.4); Platelet Count 282 10^3/uL (130-400); Red Blood Cell Count 2.79 10^6/uL (4.70-6.10); Red Cell Dist. Width 13.7 % (11.5-14.5); White Blood Cell Count 7.2 10^3/uL (4.8-10.8)
[2025-01-03 07:09] LABS: Blood Urea Nitrogen 38 mg/dl (9-20); Calcium 8.1 mg/dl (8.4-10.2); Carbon Dioxide 25 mmol/L (22-30); Chloride 100 mmol/L (98-107); Estimated Creatinine Clearance 41 ml/min; Glucose 96 mg/dl (70-99); Potassium 5.2 mmol/L (3.5-5.1); Sodium 132 mmol/L (135-145); eGFR 58.17
[2025-01-03] MEDS: MIRALAX PO (07:57)
[2025-01-03] MEDS: DELTASONE 5 MG PO ×2 (07:57→20:43)
[2025-01-03] MEDS: SENOKOT 8.6 MG PO ×2 (07:57→20:43)
[2025-01-03] MEDS: ASPIR LOW (ENTERIC COATED) 81 MG PO (07:57)
[2025-01-03] MEDS: FLOMAX 0.4 MG PO ×2 (07:57→20:43)
[2025-01-03] MEDS: VITAMIN D3 (cholecalciferol) 25 MCG PO (07:57)
--- NOTE | 2025-01-03 09:15 | W.PN.HOSP.TC ---
Today's Communication/Plan
-
f/w pulmonary recommendations
Assessment / Plan
Assessment / Plan
Physical Exam
General: not in distress, chronically ill looking
HEENT: Normocephalic, Moist mucous membranes and Atraumatic
Respiratory: Decreased Breath Sounds ( Diminished breath sounds to the entirety of the right lung field)
Cardiac: S1/S2 and Regular Rhythm
GI: Soft, Non Tender, Non Distended and Normal Bowel Sounds;
Rectal: no bleeding
Musculoskeletal: Edema, Left Lower Extremity and Edema, Right Lower Extremity
Skin: No Rash
Neuro: No Motor Deficits and Nonfocal/grossly intact
psych: calm
CT scan of the chest abdomen and pelvis 12/30/2024-no significant acute abnormality of the abdomen or pelvis. Moderate diffuse colonic stool burden. Large right pleural effusion with probable dependent blood products. Redemonstration of mixed
lytic/sclerotic osseous metastasis within the lumbar spine/sacrum.
Patient was admitted from 12/21/2024 through 12/22/2024 and was discharged, readmitted 12/30/2024 and discharged on 12/31/2024 both times had thoracentesis. Second time the plan was for Pleurx catheter to be placed as outpatient to be arranged through
hematology oncology. He had more shortness of breath and had to return on 01/01/2025. Patient has a lot of septations on the right pleural space needs lytic therapy.
Echo 12/31/2024-normal LV size and function with no wall motion abnormality. EF 55 to 60%. Mild concentric LVH. Normal RV size and function. Mild MR. Bileaflet mitral valve prolapse. Possible torn chordae involved in the tricuspid valve
anterior leaflet leading to moderate to severe TR. Pulmonary artery pressure 50 mmHg. Dilated aortic root.
# Recurrent right pleural effusion secondary to stage IV adenocarcinoma of the lung
As per pathology from last thoracentesis from 12/22/2024
PD-L1 added on
Status postthoracentesis on 12/30/2024 400 mL of fluid. Ultrasound showed multiple septations.
Repeat fluid studies including cytology
Plan is for aseptic catheter as outpatient
Oncology to arrange this ,he is at high risk for reaccumulation and readmission/ER visit for thoracentesis
Currently he feels much better after thoracentesis
pulmonary adenocarcinoma is a valid diagnosis
# Moderate protein calorie malnutrition with temporal wasting, weight loss due to cancer
# Acute hypoxic respiratory insufficiency-secondary to above.
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 Possible chordae torn. Discussed with cardiology last time and patient was given an outpatient appointment on 01/28/2025.
# Coronary disease with history of PCI and proximal to mid LAD drug-eluting stent 2018- Added ASA last admission. Continue Repatha
# Constipation -
# Hyperlipidemia-Repatha
# Hiatal hernia/GERD
# TIA history-Add ASA
# Metastatic prostate . Completed 2 rounds of radiation ended in September 2024. Patient follows with [facility]. On abiraterone. Prednisone. Flomax. Lupron due on 01/28/2025
# Insomnia-continue trazodone
# History of mitral valve endocarditis in 2008
# Ex-smoker quit in 1974
# DVT prophylaxis-Lovenox
# Full code
Total time spent to see the patient, examine the patient, review data and lab result, discuss treatment plan with patient, nursing staff around 55 minutes
Anticipated Discharge: 24 - 48 hours
Subjective/Interval History
-
Date of Service: January 03, 2025
He feels better
denies chest pain
Objective Data
-
Labs:
Laboratory Results
01/03/25
06:21
WBC 7.2
Hgb 8.3 L
Hct 24.4 L
Plt Count 282
Sodium 132 L
Potassium 5.2 H
Chloride 100
Carbon Dioxide 25
BUN 38 H
Creatinine 1.2
Glucose 96
Calcium 8.1 L
Vital Signs:
Vital Signs
Temp Pulse Resp BP Pulse Ox
97.3 F 97 16 139/71 98
01/03/25 07:48 01/03/25 07:48 01/03/25 07:48 01/03/25 07:48 01/03/25 07:48
I&O
01/02/25 01/03/25 01/04/25
06:59 06:59 06:59
Intake Total 1680 / 1680
Output Total 650 / 650
Balance 1030 / 1030
[2025-01-03] MEDS: ROXICODONE 5 MG PO (11:49)
[2025-01-03] MEDS: MORPHINE SULFATE 2 MG IV (12:37)
[2025-01-03] MEDS: FLUSH (NSS) 2 FLUSH IV (12:43)
[2025-01-03] MEDS: XANAX 0.25 MG PO (13:54)
--- NOTE | 2025-01-03 15:20 | W.PN.PUL3 ---
Today's Communication / Plan
-
- Await IR guided chest tube placement
- Goals of care discussions
Assessment
-
Patient is a very pleasant 89-year-old gentleman who presented to the hospital with worsening shortness of breath. Patient was admitted about a week ago for similar symptoms and was noted to have right-sided pleural effusion and had about 2 L
drained by interventional radiology. Patient subsequently was discharged and now presents about a week later with similar symptoms which have gradually worsened over the last few days. No fever, chills or expectoration reported. Workup in the
emergency room was suggestive of recurrent large right-sided pleural effusion with near complete collapse of right lung. Pulmonary consultation was requested for further input. Patient reportedly carries a diagnosis of prostate cancer in the past,
metastatic with bone involvement. Pleural fluid cytology came back positive for pulmonary adenocarcinoma. Patient was subsequently discharged home with the plan for indwelling pleural catheter placement as outpatient which will be coordinated by
oncology service.
#1. Acute hypoxic respiratory failure.
-Related to large recurring pleural effusion with near complete collapse of the right lung.
-Continue O2 support, work of breathing is sustainable right now, currently on 4 L supplemental oxygen, saturating 98%
#2. Malignant pleural effusion, recurrent, right side (Pulmonary Adenocarcinoma)
- Thoracentesis, 12/22/2024. 2 L sanguinous fluid removed, cytology positive for pulmonary adenocarcinoma.
- Pleural fluid cytology: Pulmonary adenocarcinoma, immunohistochemical staining, TTF-1/Napsin A positive
- PET/CT from July 2024 showed FDG avid mediastinal and hilar lymphadenopathy as well as right upper and lower lobe areas with increased SUV intake, suspect these changes reflected primary lung cancer
- Repeat thoracentesis, 12/30, 400 mL of sanguinous fluid removed, composition appears to be similar to the previous sample. Cytology again positive for malignant cells.
- 01/02, Discussed with IR service, in view of loculated effusion and only 400 mL of fluid removal last time, will favor chest tube placement and might even need intrapleural tPA/DNase depending upon clinical course. Procedure could not be done on
the same day as patient had eaten.
- Patient is afebrile, normal WBC count, pleural fluid studies have been negative for infection. Continue to monitor without antibiotics for now
- Patient lives alone, appears to be quite symptomatic both symptoms of dyspnea and pain related to malignant pleural effusion. Reported intermittent confusion on 01/02. I have concerns regarding patient's ability to navigate treatment as
outpatient and if he will be able to tolerate any chemotherapy. Will discuss with primary team and oncology service regarding best way forward and also initiate goals of care discussions with patient.
#3. History of prostate cancer
- Original diagnosis in January 2023. Metastatic bony disease noted. Continue follow-up with oncology service
Other medical diagnoses:
hyperlipidemia
CAD s/p PCI with stent
GERD
TIA
SAI
BPH
metastatic prostate cancer
Left Wrist surgery (bones removed)
Colonoscopy 2015
B/L knees TKR
Hiatal Hernia repair
cardiac stent placement 01/2018
cataracts/IOL
Former Smoker (quit in October 1974)
Cancer related pain
Total time spent on this consultation/encounter _46___ minutes which includes review of history, physical exam, medications, laboratory data, personal review of imaging, extensive review of outpatient records, discussion with care team and
respiratory therapy.
Data:
CT Chest/Abd/Pelvis 12/2024: 1. No significant acute abnormality identified in the abdomen or pelvis, within the limits of unenhanced CT, as described above.
2. Moderate diffuse colonic stool burden may reflect constipation.
3. Large right pleural effusion with probable dependent blood products, new from prior.
4. Redemonstration of mixed lytic/sclerotic osseous metastases within the lumbar spine/sacrum.
Pleural fluid cytology 12/2024: Pulmonary adenocarcinoma, immunohistochemical staining, TTF-1/Napsin A positive
PET-CT 07/2024: Low pretracheal lymph nodes with SUV 3.6, precarinal lymph node enlarged with SUV of 3.3, subcarinal lymphadenopathy, SUV 3.3. Right hilar lymphadenopathy with max SUV 5.0. Right lower lobe posterior consolidation, SUV 6.1. Right
upper lobe 3.1 cm area of pleural-based consolidation SUV 5.0. Diffuse right lung intralobular septal thickening.
In addition, foci of increased BCMA activity within the prostate gland and lytic destructive lesions within the L2 vertebral body and L2-3 posterior elements consistent with metastasis.
ECHO 01/2024: Normal biventricular size and systolic function without regional wall motion
abnormality.
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
Mildly dilated ascending aorta.
Compared to the prior 10/23/22, the ascending aorta is now mildly dilated.
[facility] 01/2018: Normal left ventricular function with EF 61%
2: Single vessel CAD with severe proximal to mid LAD stenosis
3. Successful stenting of 95% proximal to mid LAD lesion using 3.25 x 18 Xience V PRISCILA with outstanding result
4. Recommend dual antiplatelet therapy for 6-12 months
Subjective Data
-
Date of Service:
Date of Service: January 03, 2025
Subjective:
Patient lying in bed, reports being frustrated over delay in placement of drainage catheter.
Review of Systems
Genitourinary: Other (Reports pain, shortness of breath.)
Objective Data
Data Reviewed
Vital Signs / I&O / Oxygen:
Vital Signs
Temp Pulse Resp BP Pulse Ox
97.3 F 97 16 139/71 98
01/03/25 07:48 01/03/25 07:48 01/03/25 07:48 01/03/25 07:48 01/03/25 07:48
Intake and Output
01/02/25 01/03/25 01/04/25
06:59 06:59 06:59
Intake Total 1680 / 1680
Output Total 650 / 650
Balance 1030 / 1030
SaO2 98
Nasal Cannula flow liters per 4
minute
Physical Exam
General: Comfortable
HEENT: Normocephalic
Cardiovascular: S1-S2
Respiratory: Other (Decreased air entry on right side )
GI: Soft and Non Distended
Neurology: Awake and Alert
Skin: Warm
Labs/Micro/Reports
Lab Data
01/03/25 06:21
01/03/25 06:21
--- NOTE | 2025-01-03 16:12 | CM ---
Patient unavailable at bedside
IR Procedure
CM consult - dispo planning
CM attempted to call sister Myranda Bustos/POA [phone] & unable to reach by phone
will continue to try to reach sister
PLAN: TBD, CM following for needs
--- NOTE | 2025-01-03 17:03 | PN.IRAD.UPD ---
Update Note - IRAD
- -
Instilled 50ml of TPA and 50ml of Dornase into right sided chest tube and clamped tube at 16:50. Unclamp chest tube at 18:50.
Jacob Hermosillo RT(R)()
[2025-01-03 17:19] LABS: Body Fluid pH 7.07
[2025-01-03 17:34] LABS: Body Fluid Mononuclear 18.2 %; Body Fluid Polymorphonuclear 81.8 %
[2025-01-03] MEDS: LOVENOX 40 MG SC (17:44)
[2025-01-03 17:54] LABS: Body Fluid WBC 2200 /CUMM
[2025-01-03 17:56] LABS: Body Fluid Second Tech DW
[2025-01-03 18:00] LABS: Body Fluid Glucose < 30 mg/dl; Body Fluid Protein 5.5 g/dl
--- NOTE | 2025-01-03 19:35 | W.PN.UPDATE ---
Update Note
Progress Note Update
RR called at 1925 post right chest tube placement that yielded 750ml in IR- followed by instillation of TPA. When they unclamped the chest tube on the floor another 2750m drained totaling 3500ml. Pt never lost consciousness. No new complaints of
chest pain or shortness of breath. Vitals signs were: 97.3F. HR 94 BP 101/58 RR 16 SPo2 97% on 4L NC. Orders placed for CBC, Type and screen, BMP, PT/INR, Trop, IVF bolus and CXR. IR updated- chest tube clamped per Dr. Peterson's recommendation. pt
transferred to ICU for closer monitoring.
Mulitple attempts were made to call pts sister/POA Myranda lee @ [phone]. Secondary contact Kathrin ([phone]) was made aware of the situation/transfer.
[2025-01-03 19:36] LABS: Glucose - Point of Care 151 mg/dl (70-99)
--- NOTE | 2025-01-03 19:46 | PTCARENOTE ---
pt had R chest tube placed in IR, initial output reported by IR nurse was 700ml of dark bloody output, chest tube had TPA placed and was clamped at 1658. IR nurse stated that chest tube should be unclamped at 1858. after report this nurse and night
shift RN Benjamin went into room to unclamp chest tube at 1858. shortly after chest tube was unclamped the entire chest tube system filled with dark red blood in under 10 minutes. new chest tube system placed with continuous quick filling. Rapid
called. Dr. Glass notified by urgent tt. Initial BP 118/57 hr 95. labs drawn, sys bp repeated in the 120s. chest tube clamped and pt taken to higher level of care and CT ordered at the bedside. pt belongs sent in pt belonings bag. 1L NSS hung to
gravity. pt remained alert throughout rapid. pt noted R chest discomfort, although this was not increased from earlier today.
[2025-01-03 19:53] LABS: Hematocrit 25.9 % (39.0-52.0); Hemoglobin 8.9 g/dL (13.0-18.0)
[2025-01-03] MEDS: NSS 1000 IV (20:00)
[2025-01-03 20:02] LABS: INR 1.11; PT 14.6 Sec (11.4-14.6)
[2025-01-03 20:03] LABS: APTT 32.3 Sec (23.4-35.0)
--- NOTE | 2025-01-03 20:03 | RR ---
A Rapid Response was called on this patient, please see Rapid Response form.
[2025-01-03 20:06] LABS: Blood Urea Nitrogen 45 mg/dl (9-20); Calcium 8.7 mg/dl (8.4-10.2); Carbon Dioxide 28 mmol/L (22-30); Chloride 99 mmol/L (98-107); Estimated Creatinine Clearance 45 ml/min; Glucose 117 mg/dl (70-99); Potassium 5.4 mmol/L (3.5-5.1); Sodium 131 mmol/L (135-145); eGFR > 60.00
[2025-01-03 20:25] LABS: Troponin I < 0.012 ng/ml
[2025-01-03] MEDS: TYLENOL 650 MG PO (20:42)
[2025-01-03 20:48] LABS: Magnesium 2.4 mg/dl (1.6-2.3); Phosphorus 4.4 mg/dl (2.5-4.5)
--- NOTE | 2025-01-03 20:53 | W.PN.UPDATE ---
Update Note
Progress Note Update
2029 Rapid response = Patient transferred to ICU, post right thoracentesis with TPA due to right pleural effusion. Per nursing, patient had 750 ml output in IR, with an additional 2750ml on floors. Resulting in a total of 3500ml. Patient arrive to
ICU, hemodynamically stable, on 4 liters NC, no respiratory distress, O2 sat of 94% on 4literes. Chest tube clamped. IR updated. Labs: HGb 8.9, NA 131, K 5.4,�
Intervention:�
Held fluid bolus�
Will continue to monitor the patient for reexpansion pulmonary edema. XRay In AM�
Kept chest tube clamped overnight�
[2025-01-03 21:24] LABS: Body Fluid Amylase 8601 U/L; Body Fluid LDH 7224 U/L
--- NOTE | 2025-01-03 22:15 | PTCARENOTE ---
Pt received post [employer]. See Sheet. ABO2 drawn and sent. Pt BP stable, spoke w/ ICU DIRECTOR APPOINTMENT Brenton - 1L NSS bolus paused after only 50mL received by pt. Pt occasional confused conversation, forgetful. Occasionally disoriented to place. R lung sounds
extremely diminished. Chest tube clamped prior to arrival, sanguineous drainage in atrium. Pt c/o 5/10 pain in R chest/back. PRN tylenol - see SEP
--- NOTE | 2025-01-03 22:27 | PTCARENOTE ---
Spoke to pt's sister, Myranda Bustos, on phone. Updated on pt condition. Myranda Bustos stated power has been on and off at home and her home phone may not be reachable and she does not have a cell phone. Son's cell phone number added to emergency contact
list in case call unable to go through.
[2025-01-04] VITALS (20 sets, daily range): BP systolic 89–140; BP diastolic 39–66; BMI 19.7
[2025-01-04] MEDS: ROXICODONE 5 MG PO (00:22)
--- NOTE | 2025-01-04 00:30 | PTCARENOTE ---
Pt awoke confused as to where he was, trying to get out of bed to pee. Urinal provided, reality orientation. PRN dash for pain in R chest.
[2025-01-04 03:53] LABS: % Basophils 0.1 % (0-2); % Eosinophils 1.3 % (0-6); % Immature Granulocytes 0.6 % (0-0.5); % Lymphocytes 1.7 % (20.5-51.1); % Monocytes 9.1 % (1.7-9.3); % Neutrophils 87.2 % (42.2-75.2); Absolute Eosinophils 0.1 10^3/uL (0-0.7); Absolute Lymphocytes 0.1 10^3/uL (1.2-3.4); Absolute Monocytes 0.6 10^3/uL (0.1-0.6); Absolute Neutrophils 6.2 10^3/uL (1.4-6.5); Hematocrit 23.4 % (39.0-52.0); Hemoglobin 7.9 g/dL (13.0-18.0); Mean Corp Hgb Conc. 33.8 g/dL (33.0-37.0); Mean Corpuscular Hgb 29.3 pg (27.0-31.0); Mean Corpuscular Volume 86.7 fL (80.0-94.0); Mean Platelet Volume 9.2 fL (7.4-10.4); Nucleated Red Blood Cells % 0 % (-); Platelet Count 266 10^3/uL (130-400); Red Cell Dist. Width 13.8 % (11.5-14.5); White Blood Cell Count 7.1 10^3/uL (4.8-10.8)
[2025-01-04 04:16] LABS: Blood Urea Nitrogen 43 mg/dl (9-20); Calcium 8.2 mg/dl (8.4-10.2); Carbon Dioxide 27 mmol/L (22-30); Chloride 103 mmol/L (98-107); Estimated Creatinine Clearance 50 ml/min; Glucose 103 mg/dl (70-99); Potassium 4.6 mmol/L (3.5-5.1); Sodium 132 mmol/L (135-145); eGFR > 60.00
--- NOTE | 2025-01-04 06:16 | PTCARENOTE ---
CT remained clamped through the night per AGRICULTURE CONSULTANT. Pt continues to be occasionally confused to place and situation, especially upon waking up. Voiding yellow urine in urinal. 2L NC 96% and up. No further changes in assessment.
--- NOTE | 2025-01-04 07:44 | PTCARENOTE ---
all vss saved from previous shift
--- NOTE | 2025-01-04 07:54 | PTCARENOTE ---
Pt received in bed on 2lnc, confused about location and situation. Anxious about plan of care. Denies pain/sob. C/o heaviness in chest for the last 2 weeks. R chest tube clamped with bloody drainage noted at 1240ml. Attempted on room air, but
sats down to 87% at rest. Returned to 2lnc and sats improved to high 90s. When undisturbed, pt fell asleep.
[2025-01-04] MEDS: MIRALAX 17 GRAMS PO (08:53)
[2025-01-04] MEDS: ASPIR LOW (ENTERIC COATED) 81 MG PO (08:53)
[2025-01-04] MEDS: FLOMAX 0.4 MG PO (08:53)
[2025-01-04] MEDS: DELTASONE 5 MG PO (08:53)
[2025-01-04] MEDS: SENOKOT 8.6 MG PO (08:54)
[2025-01-04] MEDS: TYLENOL 650 MG PO (08:54)
[2025-01-04] MEDS: VITAMIN D3 (cholecalciferol) 25 MCG PO (08:54)
[2025-01-04] MEDS: NORCO 5/325 1 TABLET PO (10:11)
[2025-01-04] MEDS: XANAX 0.25 MG PO ×2 (10:44→19:11)
[2025-01-04] MEDS: MORPHINE SULFATE 2 MG IV (10:44)
--- NOTE | 2025-01-04 11:23 | W.PN.HOSP.TC ---
Today's Communication/Plan
-
hospice consult
IV Dilaudid
Assessment / Plan
Assessment / Plan
Physical Exam
General: seems in alot of pain, uncomfortable, chronically ill looking
HEENT: Normocephalic, Moist mucous membranes and Atraumatic
Respiratory: Decreased Breath Sounds chest tube with dark blood drainage
Cardiac: S1/S2, tachycardia
GI: Soft, Non Tender, Non Distended and Normal Bowel Sounds;
Rectal: no bleeding
Musculoskeletal: Edema, Left Lower Extremity and Edema, Right Lower Extremity
Skin: No Rash
Neuro: awake, alert , oriented X3 No Motor Deficits and Nonfocal/grossly intact
psych: in pain and no agitation
CT scan of the chest abdomen and pelvis 12/30/2024-no significant acute abnormality of the abdomen or pelvis. Moderate diffuse colonic stool burden. Large right pleural effusion with probable dependent blood products. Redemonstration of mixed
lytic/sclerotic osseous metastasis within the lumbar spine/sacrum.
Patient was admitted from 12/21/2024 through 12/22/2024 and was discharged, readmitted 12/30/2024 and discharged on 12/31/2024 both times had thoracentesis. Second time the plan was for Pleurx catheter to be placed as outpatient to be arranged through
hematology oncology. He had more shortness of breath and had to return on 01/01/2025. Patient has a lot of septations on the right pleural space needs lytic therapy.
Echo 12/31/2024-normal LV size and function with no wall motion abnormality. EF 55 to 60%. Mild concentric LVH. Normal RV size and function. Mild MR. Bileaflet mitral valve prolapse. Possible torn chordae involved in the tricuspid valve
anterior leaflet leading to moderate to severe TR. Pulmonary artery pressure 50 mmHg. Dilated aortic root.
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
As per pathology from last thoracentesis from 12/22/2024
PD-L1 added on
Status postthoracentesis on 12/30/2024 400 mL of fluid. Ultrasound showed multiple septations.
Repeat fluid studies including cytology showed adenocarcinoma.
s/p fluoroscopically guided placement of a right chest tube, yielding dark bloody fluid on 01/03 by IR
patient is having alot of pain and discomfort from chest pain, I d/w nurse, morphine seemed to help the most, will stop oral opioid and use Dilaudid to control his pain. Patient is asking for comfort care/ hospice.
d/w pulmonary and oncology doctors, hospice is appropriate.
# Moderate protein calorie malnutrition with temporal wasting, weight loss due to cancer
# Acute hypoxic respiratory failure-secondary to above.
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 Possible chordae torn. Discussed with cardiology last time and patient was given an outpatient appointment on 01/28/2025.
# Coronary disease with history of PCI and proximal to mid LAD drug-eluting stent 2018- Added ASA last admission. Continue Repatha
# Constipation -
# Hyperlipidemia-Repatha
# Hiatal hernia/GERD
# TIA history-Add ASA
# Metastatic prostate . Completed 2 rounds of radiation ended in September 2024. Patient follows with [facility]. d/w Dr Guadarrama, hospice is consulted.
# Insomnia-continue trazodone
# History of mitral valve endocarditis in 2008
# Ex-smoker quit in 1974
# DVT prophylaxis-Lovenox
# Code status, d/w patient , he does not want invasive measures to keep him alive, does not want CPR or ventilator. Agreed to DNR/DNI.
I talked to the sister Myranda Bustos and her son Dm. Both agreed to hospice and DNR. Advised to come see the patient and call his pipe out worker.
Total time spent to see the patient, examine the patient, review data and lab result, discuss treatment plan with patient, family, consultants, nursing staff around 63 minutes
Anticipated Discharge: > 48 hours
Subjective/Interval History
-
Date of Service: January 04, 2025
He complains of chest pain and pain medicine was not enough
Objective Data
-
Labs:
Laboratory Results
01/04/25
03:40
WBC 7.1
Hgb 7.9 L
Hct 23.4 L
Plt Count 266
Sodium 132 L
Potassium 4.6
Chloride 103
Carbon Dioxide 27
BUN 43 H
Creatinine 1.0
Glucose 103 H
Calcium 8.2 L
Vital Signs:
Vital Signs
Temp Pulse Resp BP Pulse Ox
97.6 F 97 24 101/51 98
01/04/25 07:02 01/04/25 10:00 01/04/25 10:00 01/04/25 10:00 01/04/25 08:00
I&O
01/03/25 01/04/25 01/05/25
06:59 06:59 06:59
Intake Total 1680 / 1680
Output Total 650 / 650 825 / 825
Balance 1030 / 1030 -825 / -825
--- NOTE | 2025-01-04 12:10 | CON.ONC ---
Consultation
-
Date Consultation Requested: 01/03/25
Date Consultation Performed: 01/04/25
Requesting Provider: Dr Moctezuma
Performing Provider: Paige Guadarrama
Reason for Consultation: lung cancer, prostate cancer
Impression
Impression
lung cancer, with recurrent/symptomatic pleural effusion
prostate cancer, metastatic
pain
Plan
Plan
He feels ready for hospice
Just wants to be out of pain
Will c/s hospice
I tried to contact sister, call wouldn't go through (evidently without power?)
He requests his 3 cats be kept together
Patient History
History of Present Illness
This is an 89yo M w/ h/o metastatic prostate cancer, on ADT/abiraterone per Dr. Pastor, who was recently found to have a malignant pleural effusion, cytology c/w lung cancer. He was again admitted 01/01/25 with symptomatic effusion and dyspnea,
s/p chest tube placement. He was a RR overnight, transferred to the ICU. He's currently c/o pain and discomfort, states that he's ready to be 'in the ground.'
Past-Medical/Surgical History
PMH as per the HPI
Patient Medication
�Medication �Instructions �Recorded �Confirmed �Last Taken �Type
abiraterone 250 mg tablet 1,000 mg PO DAILY Cancer 12/22/24 01/01/25 12/30/24 History
cholecalciferol (vitamin D3) 25 25 mcg PO DAILY Supplement 12/22/24 01/01/25 Unknown History
mcg (1,000 unit) tablet (Vitamin
D3)
evolocumab 140 mg/mL subcutaneous 140 mg SC Q2W High Cholesterol 12/22/24 01/01/25 Unknown History
pen injector (Repatha SureClick)
hydrocodone 5 mg-acetaminophen 325 1 - 2 tab PO Q6HPRN PRN severe 12/22/24 01/01/25 Unknown History
mg tablet pains
oxycodone 5 mg tablet 5 mg PO Q6HPRN PRN break through 12/22/24 01/01/25 12/30/24 History
pain
prednisone 5 mg tablet 5 mg PO BID Anti-Inflammatory 12/22/24 01/01/25 12/30/24 History
tamsulosin 0.4 mg capsule (Flomax) 0.4 mg PO BID Urinary Issue 12/22/24 01/01/25 12/30/24 History
trazodone 50 mg tablet 50 mg PO HSPRN PRN sleep 12/22/24 01/01/25 Unknown History
vitamin B complex 1 tab PO DAILY Supplement 12/22/24 01/01/25 Unknown History
aspirin 81 mg tablet,delayed 81 mg PO DAILY Blood clot 12/31/24 01/01/25 Unknown Rx
release prevention/tx #0 tabs
polyethylene glycol 3350 17 gram 17 g PO DAILY Constipation #0 ea 12/31/24 01/01/25 12/29/24 Rx
oral powder packet (Miralax)
sennosides 8.6 mg tablet (Shu-dallas) 8.6 mg PO BID Constipation #0 tabs 12/31/24 01/01/25 Unknown Rx
Active Medications
Generic Name Dose Route Start Last Admin
Trade Name Freq PRN Reason Stop Dose Admin
Acetaminophen 650 mg 01/01/25 20:29 01/04/25 08:54
Acetaminophen 325 Mg Tablet PO 01/29/25 20:28 650 mg
Q4HPRN PRN Administration
mild pain/NAIK/temp> 100.4F
Alprazolam 0.25 mg 01/03/25 08:59 01/04/25 10:44
Alprazolam 0.25 Mg Tablet PO 01/31/25 08:58 0.25 mg
Q8HPRN PRN Administration
anxiety
Aspirin 81 mg 01/02/25 08:00 01/04/25 08:53
Aspirin 81 Mg (Enteric Coated) Tablet PO 01/30/25 07:59 81 mg
DAILY AGUSTIN Administration
Bisacodyl 10 mg 01/01/25 20:29
Bisacodyl 10 Mg Rectal Suppository RECTAL 01/29/25 20:28
P39NELY PRN
constipation
Cholecalciferol 25 mcg 01/03/25 08:00 01/04/25 08:54
Cholecalciferol (Vitamin D3) 25 Mcg Tablet (1,000 Units) PO 01/31/25 07:59 25 mcg
DAILY AGUSTIN Administration
Enoxaparin Sodium 40 mg 01/02/25 18:00 01/03/25 17:44
Enoxaparin Sodium 40 Mg/0.4 Ml Syringe SC 01/30/25 17:59 40 mg
QPM AGUSTIN Administration
Hydromorphone HCl 1 mg 01/04/25 11:36
Hydromorphone 1 Mg/Ml Carpuject IV 01/18/25 11:35
Q3HPRN PRN
pain,respiratory distress
Abiraterone 250 Mg 0 mg 01/02/25 08:00
Tab: 1000mg (4 Tabs) PO 01/30/25 07:59
Po Daily DAILY AGUSTIN
Polyethylene Glycol 17 grams 01/02/25 08:00 01/04/25 08:53
Polyethylene Glycol Powder 17 Grams Packet PO 01/30/25 07:59 17 grams
DAILY AGUSTIN Administration
Prednisone 5 mg 01/01/25 20:29 01/04/25 08:53
Prednisone 5 Mg Tablet PO 01/29/25 20:28 5 mg
BID AGUSTIN Administration
Sennosides 8.6 mg 01/01/25 20:29 01/04/25 08:54
Sennosides (Senokot) 8.6 Mg Tablet PO 01/29/25 20:28 8.6 mg
BID AGUSTIN Administration
Sodium Chloride 0 flush 01/01/25 21:00 01/03/25 12:43
Sodium Chloride 0.9% (Flush) Syringe IV 01/29/25 20:59 2 flush
PER PROTOCOL AGUSTIN Administration
Tamsulosin HCl 0.4 mg 01/01/25 20:29 01/04/25 08:53
Tamsulosin 0.4 Mg Capsule PO 01/29/25 20:28 0.4 mg
BID AGUSTIN Administration
Trazodone HCl 50 mg 01/01/25 20:29
Trazodone 50 Mg Tablet PO 01/29/25 20:28
HSPRN PRN
sleep
Review of Systems
-
History Source: Patient
All Other Systems: Not reviewed unless documented
Physical Exam
-
General: Appears in Distress and Appears Chronically Ill; Negative Comfortable
Psych: Agitated
Labs
Lab Results
WBC 7.1 10^3/uL (4.8-10.8) 01/04/25 03:40
RBC 2.70 10^6/uL (4.70-6.10) L 01/04/25 03:40
Hgb 7.9 g/dL (13.0-18.0) L 01/04/25 03:40
Hct 23.4 % (39.0-52.0) L 01/04/25 03:40
MCV 86.7 fL (80.0-94.0) 01/04/25 03:40
MCH 29.3 pg (27.0-31.0) 01/04/25 03:40
MCHC 33.8 g/dL (33.0-37.0) 01/04/25 03:40
RDW 13.8 % (11.5-14.5) 01/04/25 03:40
Plt Count 266 10^3/uL (130-400) 01/04/25 03:40
MPV 9.2 fL (7.4-10.4) 01/04/25 03:40
Abs Immat Gran (auto) 0.0 10^3/uL (0-0.05) 01/04/25 03:40
Absolute Neuts (auto) 6.2 10^3/uL (1.4-6.5) 01/04/25 03:40
Absolute Lymphs (auto) 0.1 10^3/uL (1.2-3.4) L 01/04/25 03:40
Absolute Monos (auto) 0.6 10^3/uL (0.1-0.6) 01/04/25 03:40
Absolute Eos (auto) 0.1 10^3/uL (0-0.7) 01/04/25 03:40
Absolute Basos (auto) 0.0 10^3/uL (0-0.2) 01/04/25 03:40
Immature Gran % 0.6 % (0-0.5) H 01/04/25 03:40
Neutrophils % 87.2 % (42.2-75.2) H 01/04/25 03:40
Lymphocytes % 1.7 % (20.5-51.1) L 01/04/25 03:40
Monocytes % 9.1 % (1.7-9.3) 01/04/25 03:40
Eosinophils % 1.3 % (0-6) 01/04/25 03:40
Basophils % 0.1 % (0-2) 01/04/25 03:40
Creatinine 1.0 mg/dL (0.7-1.3) 01/04/25 03:40
Vital Signs
Vital Signs
Temp Pulse Resp BP Pulse Ox
97.6 F 97 24 101/51 98
01/04/25 07:02 01/04/25 10:00 01/04/25 10:00 01/04/25 10:00 01/04/25 08:00
[2025-01-04] MEDS: DILAUDID 1 MG IV ×4 (12:12→22:39)
--- NOTE | 2025-01-04 12:21 | PTCARENOTE ---
Pt yelling out and c/o pain to chest tube site but then spread across back. Unable to rate, but tachypneic and anxious s well. Medicated as charted, tried to work on breathing exercises, but pt unable. Pt keeps saying 'this is no way to live. I
just want to go home.' Dr Moctezuma aware.
--- NOTE | 2025-01-04 12:56 | W.PN.PUL3 ---
Addendum entered and electronically signed by Ernesto García MD 01/04/25 15:46:
Reviewed correspondence from Oncology service.
Patient transitioning to Hospice care
Pulmonary service will be available as needed.
Original Note:
Today's Communication / Plan
-
- Unclamp chest tube and place on waterseal, gravity drainage for now
- Follow-up chest x-ray in a.m.
- Goals of care discussion, poor prognosis, recommend hospice evaluation
Assessment
-
Patient is a very pleasant 89-year-old gentleman who presented to the hospital with worsening shortness of breath. Patient was admitted about a week ago for similar symptoms and was noted to have right-sided pleural effusion and had about 2 L
drained by interventional radiology. Patient subsequently was discharged and now presents about a week later with similar symptoms which have gradually worsened over the last few days. No fever, chills or expectoration reported. Workup in the
emergency room was suggestive of recurrent large right-sided pleural effusion with near complete collapse of right lung. Pulmonary consultation was requested for further input. Patient reportedly carries a diagnosis of prostate cancer in the past,
metastatic with bone involvement. Pleural fluid cytology came back positive for pulmonary adenocarcinoma. Patient was subsequently discharged home with the plan for indwelling pleural catheter placement as outpatient which will be coordinated by
oncology service.
#1. Acute hypoxic respiratory failure.
-Related to large recurring pleural effusion with near complete collapse of the right lung.
-Continue O2 support, work of breathing is sustainable right now, currently on 2 L and saturating about 96%
#2. Malignant pleural effusion, recurrent, right side (Pulmonary Adenocarcinoma)
- Thoracentesis, 12/22/2024. 2 L sanguinous fluid removed, cytology positive for pulmonary adenocarcinoma.
- Pleural fluid cytology: Pulmonary adenocarcinoma, immunohistochemical staining, TTF-1/Napsin A positive
- PET/CT from July 2024 showed FDG avid mediastinal and hilar lymphadenopathy as well as right upper and lower lobe areas with increased SUV intake, suspect these changes reflected primary lung cancer
- Repeat thoracentesis, 12/30, 400 mL of sanguinous fluid removed, composition appears to be similar to the previous sample. Cytology again positive for malignant cells.
- 01/03, right-sided chest tube was placed and tPA initiated. Close to 3 L sanguinous output noted, patient was subsequently transferred to ICU and chest tube was clamped. Patient is hemodynamically stable, hemoglobin has been stable, breathing
status improving, unclamp chest tube and will continue to waterseal for now
#3. History of prostate cancer
- Original diagnosis in January 2023. Metastatic bony disease noted. Continue follow-up with oncology service
Other medical diagnoses:
hyperlipidemia
CAD s/p PCI with stent
GERD
TIA
SAI
BPH
metastatic prostate cancer
Left Wrist surgery (bones removed)
Colonoscopy 2015
B/L knees TKR
Hiatal Hernia repair
cardiac stent placement 01/2018
cataracts/IOL
Former Smoker (quit in October 1974)
Cancer related pain
Total time spent on this consultation/encounter _45___ minutes which includes review of history, physical exam, medications, laboratory data, personal review of imaging, extensive review of outpatient records, discussion with care team and
respiratory therapy.
Data:
CT Chest/Abd/Pelvis 12/2024: 1. No significant acute abnormality identified in the abdomen or pelvis, within the limits of unenhanced CT, as described above.
2. Moderate diffuse colonic stool burden may reflect constipation.
3. Large right pleural effusion with probable dependent blood products, new from prior.
4. Redemonstration of mixed lytic/sclerotic osseous metastases within the lumbar spine/sacrum.
Pleural fluid cytology 12/2024: Pulmonary adenocarcinoma, immunohistochemical staining, TTF-1/Napsin A positive
PET-CT 07/2024: Low pretracheal lymph nodes with SUV 3.6, precarinal lymph node enlarged with SUV of 3.3, subcarinal lymphadenopathy, SUV 3.3. Right hilar lymphadenopathy with max SUV 5.0. Right lower lobe posterior consolidation, SUV 6.1. Right
upper lobe 3.1 cm area of pleural-based consolidation SUV 5.0. Diffuse right lung intralobular septal thickening.
In addition, foci of increased BCMA activity within the prostate gland and lytic destructive lesions within the L2 vertebral body and L2-3 posterior elements consistent with metastasis.
ECHO 01/2024: Normal biventricular size and systolic function without regional wall motion
abnormality.
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
Mildly dilated ascending aorta.
Compared to the prior 10/23/22, the ascending aorta is now mildly dilated.
[facility] 01/2018: Normal left ventricular function with EF 61%
2: Single vessel CAD with severe proximal to mid LAD stenosis
3. Successful stenting of 95% proximal to mid LAD lesion using 3.25 x 18 Xience V PRISCILA with outstanding result
4. Recommend dual antiplatelet therapy for 6-12 months
Subjective Data
-
Date of Service:
Date of Service: January 04, 2025
Subjective:
Patient reports overall feeling better since the drainage catheter was placed, cancer-related pain continues to be an issue
Review of Systems
Genitourinary: Other (Patient feels poorly, and pain)
Objective Data
Data Reviewed
Vital Signs / I&O / Oxygen:
Vital Signs
Temp Pulse Resp BP Pulse Ox
97.6 F 97 24 101/51 98
01/04/25 07:02 01/04/25 10:00 01/04/25 10:00 01/04/25 10:00 01/04/25 08:00
Intake and Output
01/03/25 01/04/25 01/05/25
06:59 06:59 06:59
Intake Total 1680 / 1680
Output Total 650 / 650 825 / 825 1860 / 1860
Balance 1030 / 1030 -825 / -825 -1860 / -1860
SaO2 98
Nasal Cannula flow liters per 2
minute
Physical Exam
General: Comfortable
HEENT: Normocephalic
Cardiovascular: S1-S2
Respiratory: Other (Decreased air entry on right side )
GI: Soft and Non Distended
Neurology: Awake and Alert
Skin: Warm
Labs/Micro/Reports
Lab Data
01/04/25 03:40
01/04/25 03:40
Laboratory Results
01/03/25 01/03/25
19:37 19:37
PT 14.6
INR 1.11
APTT 32.3 Cancelled
--- NOTE | 2025-01-04 12:58 | CM ---
Hospice consult has been ordered and referral forwarded to hospice team.
--- NOTE | 2025-01-04 13:58 | PTCARENOTE ---
Pt pulled off oxygen and left off at his request. Reports pain much better since dilaudid was given.
--- NOTE | 2025-01-04 14:29 | HOSPNOTE ---
Addendum entered by Bing Arias RN 01/04/25 14:56:
Spoke with sister and patient and they are both in agreement with hospice care. The plan is to admit tomorrow 01/05 inpatient hospice. I have requested a bed on [facility] and updated Attending.
Original Note:
Will reach out to sister and explain hospice and the philosophy and try to schedule a meeting bedside.
--- NOTE | 2025-01-04 19:00 | CHAP ---
Fr. Joe Liao of [facility] in [place] gave [place] an apostolic pardon and the Sacrament of the Sick. Exact time uncertain.
--- NOTE | 2025-01-04 19:40 | PTCARENOTE ---
pt premedicated with dilaudid and xanax prior to transfer to [facility]. report given to Kia prior to transfer. Sister and family aware of transfer during earlier visit
[2025-01-05] MEDS: DILAUDID 1 MG IV ×2 (01:34→07:37)
--- NOTE | 2025-01-05 03:38 | PTCARENOTE ---
Received patient from ICU, upon arrival approx 1999 patient was sleepy but arousable and calm. patient became increasingly restless, trying multiple times to get out of bed, stated he had to pee, assisted patient with urinal unsuccessful attempts,
had patient stand up very unsteady gait reaching for things that were not there, Bladder scan showed approx 260cc in bladder, redirected patient multiple times, patient could not state what he needed or if he was in pain just very restless, confused
and frequent attempts to get out of bed, pulling at gown and blankets as well as chest tube, patient was seen on all fours on bed with chest tube in his hand attempting to pull out, patient was then medicated for pain and mitts were ordered for
safety, patient at that time he was straight cath for 300cc of urine. Patient remains restless at times but calm when medicated.
--- NOTE | 2025-01-05 04:13 | W.PN.UPDATE ---
Update Note
Progress Note Update
Patient very restless, impulsive, forgetful. Found trying to get OOB, on all fours, chest tube pulling. Patient medicated as per SEP. Ordered bladder scan and straight cath per algorithm. Increased Xanax dose to 0.5 mg PO. Ordered restraints, b/l
mitts, b/l soft limb and four side rails for patient safety.
[2025-01-05] MEDS: ATIVAN 1 MG IV (07:37)
[2025-01-05] MEDS: NSS (PRESERVATIVE FREE) 0.5 ML IV (07:37)
--- NOTE | 2025-01-05 08:00 | PTCARENOTE ---
Restraints removed, MD made aware for removal of CT, chart to be flipped for IP hospice. See documentation in new chart.
[2025-01-05 08:03] VITALS: BP 112/57
--- NOTE | 2025-01-05 09:31 | W.PN.HOSP.TC ---
Today's Communication/Plan
-
dc to inpatient hospice
Assessment / Plan
Assessment / Plan
Physical Exam
General:sleeping, chronically ill looking
HEENT: Normocephalic, Moist mucous membranes and Atraumatic
Respiratory: Decreased Breath Sounds chest tube with dark blood drainage
Cardiac: S1/S2,
GI: Soft, Non Tender, Non Distended and Normal Bowel Sounds;
Rectal: no bleeding
Musculoskeletal: Edema, Left Lower Extremity and Edema, Right Lower Extremity
Skin: No Rash
Neuro: pt is sleeping after receiving Dilaudid & Xanax.
psych: no agitation .
# Recurrent right malignant hemorrhagic pleural effusion secondary to stage IV adenocarcinoma of the lung
s/p Recurrent thoracentesis and chest tube placement
d/w hospice nurse, recommend to remove chest tube for comfort
# Moderate protein calorie malnutrition with temporal wasting, weight loss due to cancer
# Acute hypoxic respiratory failure
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
# Coronary disease with history of PCI and proximal to mid LAD drug-eluting stent 2018-
# Constipation -
# Hyperlipidemia-
# Hiatal hernia/GERD
# TIA history-Add ASA
# Metastatic prostate .
# Insomnia
# History of mitral valve endocarditis in 2008
# Ex-smoker quit in 1974
# DVT prophylaxis-Lovenox
# Code status, d/w patient , he does not want invasive measures to keep him alive, does not want CPR or ventilator. Agreed to DNR/DNI.
I talked to the sister Myranda Bustos and her son Dm. Both agreed to hospice and DNR. d/w Bing Arias, they signed on hospice.
Total discharge time spent to see the patient, examine the patient, review data and lab result, discuss discharge plan with patient, family, consultants, hospice nurse, nursing staff around 67 minutes
Anticipated Discharge: Today
Subjective/Interval History
-
Date of Service: January 05, 2025
Patient is sleeping after taking Xanax
No fevers
No hypoxia
d/w night team
Objective Data
-
Vital Signs:
Vital Signs
Temp Pulse Resp BP Pulse Ox
97.7 F 105 17 112/57 95
01/05/25 08:03 01/05/25 08:03 01/05/25 08:03 01/05/25 08:03 01/05/25 08:03
I&O
01/04/25 01/05/25 01/06/25
06:59 06:59 06:59
Intake Total 250 / 250
Output Total 1964 2809 / 280
Balance -1964 / -1964 -2558 / -2558
--- NOTE | 2025-01-05 10:48 | W.DCSUMMARY ---
Discharge Summary
Discharge Data
Date of Admission: 01/01/25
Date of Discharge: 01/05/25
-
Pending Results: No
Hospital Course
89 years old male with history of prostate cancer and lung cancer presented to the hospital with failure to thrive, weakness and shortness of breath/hypoxia. Patient was found to have recurrent hemorrhagic right pleural effusion. Patient was
evaluated by pulmonary doctor and oncology. He underwent thoracentesis and later chest tube was placed. Patient continued to have pain and discomfort. He expressed his wishes to be comfort care and did not want to continue acute care. Goals of
care and CODE STATUS were discussed with patient and his family. They decided DNR and hospice care. Oncology doctor and pulmonary doctor felt the hospice care would be appropriate. Patient was seen by hospice nurse and counter caser. He was
admitted to inpatient hospice care.
Discharge Plan
-
Patient Disposition: Hospice - Inpatient [facility]
Discharge Orders:
Discharge Patient (As Directed); Ordered 01/05/25
Ordered By: Luis Moctezuma
Discharge Date and Time
Discharge Date/Time: 01/05/25 11:13
Print Language: SWAZI
--- NOTE | 2025-01-05 13:06 | PN.CDI ---
Addendum entered and electronically signed by Luis Moctezuma MD 01/05/25 14:15:
Hyponatremia
Original Note:
CDI
- -
CDI:
Physician Documentation Request
Admit Date: 01/01/25 19:06
Dear Doctor Jose Elias,
Clinical Indicators:
Patient admitted with malignant hemorrhagic pleural effusion.
PMH includes Stage IV Lung adenocarcinoma.
Sodium trend:
01/01/25 01/02/25 01/03/25
17:22 06:54 06:21
Sodium 131 L 132 L 132 L
01/03/25 01/04/25
19:37 03:40
Sodium 131 L 132 L
Based on the above, could you clarify in the progress notes, the appropriate diagnosis, if significant, that supports the above abnormalities and additional evaluation, monitoring and/or treatment rendered:
Hyponatremia
Abnormal lab values, clinically insignificant
Other, please specify
Use of terms such as suspected, likely, concern for, or probable (associated with a specific diagnosis that is being evaluated, monitored, or treated as if it exists) are acceptable and can be coded in the inpatient setting, when documented at the
time of discharge.
Thank you,
MIGUEL Whyte RN
CDI Specialist
available via tiger text
Please use your independent medical judgment in providing your response.
== END 2025-01-05 11:13 | disposition hospice, inpatient (51) | DRG 180 ==
LOC: 2 NORTH 19:06
PROVIDERS: Hospitalist; Nurse Practitioner Primary Care; Radiology Vascular & Interventional Radiology; ADMITTING PHYSICIAN Internal Medicine; ATTENDING PHYSICIAN Internal Medicine; CONSULT PHYSICIAN Internal Medicine Hematology & Oncology; EMERGENCY PHYSICIAN Student in an Organized Health Care Education/Training Program; FAMILY PHYSICIAN Family Medicine
PROC: 0W9930Z Drainage of Right Pleural Cavity with Drainage Device, Percutaneous Approach (ICD-10-PCS; 2025-01-03)
PROC: 3E0L317 Introduction of Other Thrombolytic into Pleural Cavity, Percutaneous Approach (ICD-10-PCS; 2025-01-04)
DX: C34.90 Malignant neoplasm of unspecified part of unspecified bronchus or lung (principal); J96.01 Acute respiratory failure with hypoxia; C79.51 Secondary malignant neoplasm of bone; J91.0 Malignant pleural effusion; E44.0 Moderate protein-calorie malnutrition; Z68.1 Body mass index [BMI] 19.9 or less, adult; E87.1 Hypo-osmolality and hyponatremia; Z87.891 Personal history of nicotine dependence; K59.00 Constipation, unspecified; E78.00 Pure hypercholesterolemia, unspecified; K21.9 Gastro-esophageal reflux disease without esophagitis; Z86.73 Personal history of transient ischemic attack (TIA), and cerebral infarction without residual deficits; Z51.5 Encounter for palliative care; Z66 Do not resuscitate; Z79.899 Other long term (current) drug therapy; Z79.82 Long term (current) use of aspirin; R62.7 Adult failure to thrive
CPT/HCPCS: 88305; 32557; 32561; 71045; 80048; 80053; 82150; 82945; 82962; 83615; 83735; 83986; 84100; 84155; 84157; 84484; 85014; 85018; 85025; 85027; 85610; 85730; 86850; 86900; 86901; 88112; 89051; 93005; 96374; 99152; 99285; C1729; C1769; J2997

== ENCOUNTER 2025-01-05 11:18 | Inpatient (IN) | payer OTHER, SELFPAY ==
--- NOTE | 2025-01-05 11:31 | CM ---
Reviewed the chart notes. Patient transitioned onto [facility]. Patient resides alone in a 2 story home with three steps to enter. Family was in to visit with the patient today. CM continues to be available to patient/family.
Plan: [facility]
--- NOTE | 2025-01-05 11:41 | PTCARENOTE ---
Pt GIP, chart flipped, IRAD consulted to remove right CT, pt resting comfortably in bed at this time. Family/contacts updated at bedside and provided with emotional support by nursery worker and this RN.
--- NOTE | 2025-01-05 11:46 | HOSPNOTE ---
Patient is admitted inpatient hospice for management of pain and anxiety. Consents signed and patient will be seen daily by hospice.
[2025-01-05 11:47] VITALS: BP 112/57
--- NOTE | 2025-01-05 13:40 | PN.IRAD.UPD ---
Update Note - IRAD
- -
Right chest tube removed per . Site cleaned and dressed with an occlusive dressing. RN made aware of fluid leaking from site.
[2025-01-05] MEDS: ATIVAN 1 MG IV (13:43)
[2025-01-05] MEDS: DILAUDID 1 MG IV ×2 (13:43→20:37)
[2025-01-05 19:24] VITALS: BP 92/52
[2025-01-05] MEDS: ATIVAN 1 MG SL (22:36)
[2025-01-06] MEDS: TRANSDERM-SCOP 1 PATCH TRANSDERM (02:16)
[2025-01-06] MEDS: DILAUDID 1 MG IV ×3 (04:20→10:53)
[2025-01-06 08:00] VITALS: BP 96/53
--- NOTE | 2025-01-06 09:04 | CHAP ---
Fr. Joe Liao of [facility] in [place] gave Obinna an Apostolic Pardon and the Sacrament of the Sick on 01/04/25 at approximately 11:00 am.
--- NOTE | 2025-01-06 10:08 | HOSPNOTE ---
Patient is actively dying, appears comfortable at this time, continues to be medicated and remains appropriate for inpatient hospice. Prior to any care encouraged to medicate. Patient will be seen daily by hospice. No family was present during my
visit. Will update family when they come in to visit.
--- NOTE | 2025-01-06 10:11 | CM ---
Reviewed the chart notes. CM continues to be available to patient/family.
Plan: [facility] Hospice appropriate.
--- NOTE | 2025-01-06 10:48 | W.PN.HSP.1 ---
Assessment / Plan
-
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
# Moderate protein calorie malnutrition with temporal wasting, weight loss due to cancer
# Acute hypoxic respiratory failure
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
# Coronary disease
# Hyperlipidemia-
# Hiatal hernia/GERD
# TIA history
# Metastatic prostate cancer.
# History of mitral valve endocarditis in 2008
# Ex-smoker quit in 1974
# Code status, DNR/DNI.
c/w hospice care. PRN IV Dilaudid
d/w nursing staff
Today's Communication
c/w PRN Dilaudid, Ativan
Interval History
-
sedated and sleeping
Physical Exam
-
Temp Pulse Resp BP Pulse Ox
97.2 F 83 16 96/53 95
01/06/25 08:00 01/06/25 08:00 01/06/25 08:00 01/06/25 08:00 01/06/25 10:44
[2025-01-06] MEDS: ATIVAN 1 MG SL (10:53)
[2025-01-06] MEDS: ROBINUL 0.2 MG IV (11:27)
--- NOTE | 2025-01-06 14:08 | W.PN.DEATH ---
Pronouncement of
-
Called to see patient to pronounce.
No spontaneous heart tones or respirations noted.
Patient not responsive to verbal stimuli.
Patient is pronounced .
Time of : 13:00
Date of : 01/06/25
Family Notified: Yes
--- NOTE | 2025-01-06 14:22 | HOSPNOTE ---
Called the sister Sridhar but she has no electricity and only has a landline. A niece came to visit and was informed patient passed she will try and get in touch with Myranda Bustos. Family gave me the nephew Dm's phone number and I left a message to
please call me back. There is a neighbor of the patient Kathrin and she was called and informed she will also try to get in touch with Myranda Bustos. Floor RN aware and Attending.
--- NOTE | 2025-01-06 14:39 | W.DCSUMMARY ---
Discharge Summary
Discharge Data
Date of Admission: 01/05/25
Date of Discharge: 01/06/25
-
Pending Results: No
Hospital Course
89 years old male with history of prostate cancer and lung cancer admitted to inpatient hospice. Patient had right chest tube for recurrent hemorrhagic right pleural effusion which was later removed. Patient expressed wishes to seek hospice care
and receive comfort care medications including Dilaudid. Patient was followed by hospice nurse. Patient peacefully on 01/06/25.
Discharge Plan
-
Patient Disposition:
Date/Time
Date/Time: 01/06/25 13:00
Discharge Date and Time
Print Language: UKRAINIAN
== END 2025-01-06 13:00 | disposition expired | DRG 951 ==
LOC: 2 NORTH 11:18
PROVIDERS: ADMITTING PHYSICIAN Internal Medicine
DX: Z51.5 Encounter for palliative care (principal); J96.01 Acute respiratory failure with hypoxia; C34.90 Malignant neoplasm of unspecified part of unspecified bronchus or lung; J91.0 Malignant pleural effusion; E44.0 Moderate protein-calorie malnutrition; C79.82 Secondary malignant neoplasm of genital organs; I07.1 Rheumatic tricuspid insufficiency; I25.10 Atherosclerotic heart disease of native coronary artery without angina pectoris; E78.5 Hyperlipidemia, unspecified; K21.9 Gastro-esophageal reflux disease without esophagitis; K44.9 Diaphragmatic hernia without obstruction or gangrene; Z66 Do not resuscitate; Z79.899 Other long term (current) drug therapy; Z87.891 Personal history of nicotine dependence; Z85.46 Personal history of malignant neoplasm of prostate